=== PATIENT | female | born 1955 | race Caucasian/White ===

== ENCOUNTER 2016-08-24 01:07 | Inpatient (IN) | payer BC ==
[~2016-08-24] VITALS: Ht 162.6 cm; Wt 89.9 kg
[~2016-08-24 01:07] MED LIST: ASPI-983 PO; CITA20TA7 PO; DIPH-639 PO; FLUT1DIS26 IH; GLIP5TAB13 PO; LEVA1.2527 NEB; NCT21TD TD; PRD10T PO; TIOT4MIS2 IH; [UNRECOGNIZED DRUG - CODE] PO
--- OUTSIDE RECORDS SUMMARY | 2016-08-24 01:17 | XMS REPORT | Continuity of Care Document ---
Author Author Interface Organization Interface Address Unknown Phone Unavailable Problems Problem Status Onset Date Classification Date Reported Comments Source Chronic obstructive lung disease (disorder) Active Problem 12/11/2015 [facility]. Lobar pneumonia (disorder) Active Problem 12/11/2015 Kranem. Paroxysmal atrial fibrillation (disorder) Active Problem 12/11/2015 Kranem. Tobacco user (finding) Active Problem 12/11/2015 Kranem. Chronic obstructive lung disease (disorder) Active Problem 05/14/2015 Kranem. Lobar pneumonia (disorder) Active Problem 05/14/2015 Kranem. Paroxysmal atrial fibrillation (disorder) Active Problem 05/14/2015 Kranem. Tobacco user (finding) Active Problem 05/14/2015 Kranem. Chronic obstructive lung disease (disorder) Active Problem 05/11/2015 Kranem. Lobar pneumonia (disorder) Active Problem 05/11/2015 Kranem. Paroxysmal atrial fibrillation (disorder) Active Problem 05/11/2015 Kranem. Tobacco user (finding) Active Problem 05/11/2015 Kranem. Chronic obstructive lung disease (disorder) Active Problem 05/11/2015 Kranem. Lobar pneumonia (disorder) Active Problem 05/11/2015 Kranem. Paroxysmal atrial fibrillation (disorder) Active Problem 05/11/2015 Kranem. Tobacco user (finding) Active Problem 05/11/2015 Kranem. Chronic obstructive lung disease (disorder) Active Problem 05/02/2015 Kranem. No data available for this section Problem 11/20/2014 Kranem. Chronic obstructive lung disease (disorder) 12/07/2015 Diagnosis 12/11/2015 Kranem. Posterior rhinorrhea (disorder) 05/30/2015 Diagnosis [employer]. Cough (finding) 05/30/2015 Diagnosis 06/03/2015 Kranem. Severe chronic obstructive pulmonary disease (disorder) 05/30/2015 Diagnosis 06/03/2015 Kranem. Hyperglycemia (disorder) Diagnosis 12/11/2015 Kranem. Paroxysmal atrial fibrillation (disorder) 12/07/2015 Diagnosis 12/11/2015 Kranem. Mood disorder (disorder) Diagnosis 12/11/2015 Kranem. Obstructive sleep apnea syndrome (disorder) 05/10/2015 Diagnosis 05/14/2015 Kranem. Chronic obstructive lung disease (disorder) 05/05/2015 Diagnosis 05/14/2015 Kranem. Paroxysmal atrial fibrillation (disorder) 05/05/2015 Diagnosis 05/14/2015 Kranem. Tobacco user (finding) 05/08 Diagnosis 05/14/2015 Kranem. Lobar pneumonia (disorder) 05/08/2015 Diagnosis 2014 Kranem. Exacerbation of asthma (disorder) 04/28/2015 Diagnosis Kranem. Chronic airway obstruction, not elsewhere classified 11/16/2014 Diagnosis 11/20/2014 Kranem. Other chest pain 08/22/2014 Diagnosis 08/26/2014 Kranem. Medications Medication Details Route Status Patient Instructions Ordering Provider Order Date Source No Known Medications No known medications Active Kranem. Allergies, Adverse Reactions, Alerts Substance Category Reaction Severity Reaction type Status Date Reported Comments Source Codeine Assertion Drug allergy Kranem. Codeine Assertion Drug allergy Kranem. Codeine Assertion Drug allergy Kranem. Codeine Assertion Drug allergy Kranem. Immunizations Immunization Date Given Site Status Last Updated Comments Source No data available for this section No data available for this section [facility]. No data available for this section No data available for this section [facility]. No data available for this section No data available for this section [place] No data available for this section No data available for this section [place] No data available for this section No data available for this section [place]. Results Order Name Results Value Reference Range Date Interpretation Comments Source Vital Signs Vital Sign Value Date Comments Source Encounters Location Location Details Encounter Type Encounter Number Reason For Visit Attending Provider ADM Date DC Date Status Source [facility] [id number] Jay Alcantar 05/15/2015 05/16/2015 [place] [facility] [id number] Francis Elliser 05/30/2015 05/31/2015 [facility] [id number] Jay Alcantar 12/07/2015 12/08/2015 [place] [facility]. [facility], [facility] Inpatient [id number] Bennett Ganga 05/04/2015 05/11/2015 [place] [facility]. [facility] [employer] [facility] Pulmonary Medicine Cancel/No Show [id number] Brigette Stewart 05/07/2015 05/07/2015 [place] [facility]. [facility] Cancel/ No Show [id number] Jay Alcantar 05/15/2015 05/09/2015 [place] Cancel/ No Show [id number] . [facility] 05/08/2015 05/07/2015 [place] [facility]. [facility] Emergency [id number] Jay Alcantar 04/28/2015 04/29/2015 [place] [facility]. [facility], [facility] Outpatient [id number] Jess Ridley 12/07/2014 12/08/2014 [place] [facility] [facility]. [facility] [id number] Jay Alcantar 05/03/2015 05/04/2015 [place] [facility]. [facility] [id number] Jess Ridley 12/07/2014 12/08/2014 [place] [facility]. [facility] [id number] Jay Alcantar 11/16/2014 11/17/2014 [place] CD:[id number] Inpatient [id number] Vivek Goff 05/04/201505/10 [facility] CD:[id number] Emergency [id number] Romeo Briggs 04/27/2015 04/28/2015 [facility] CD:[id number] Outpatient [id number] Jess Ridley 12/07/2014 12/07/2014 [facility] Clinic [id number] Jay Alcantar 08/22/2014 08/23/2014 [facility] CD:[id number] Clinic ( Outpatient) [id number] Francis Presley 05/30/2015 [facility] CD:[id number] Clinic ( Outpatient) [id number] Jay Alcantar 05/15/2015 [facility] CD:[id number] Clinic ( Outpatient) [id number] . [facility] 05/07/2015 [facility] CD:[id number] Clinic ( Outpatient) [id number] Brigette Stewart 05/07/2015 [facility] CD:[id number] Clinic ( Outpatient) [id number] Jay Justmarvinn 05/15/2015 [facility] CD:[id number] Clinic ( Outpatient) [id number] Jay Villanuevan 12/07/2015 [facility] CD:[id number] Clinic ( Outpatient) [id number] Jay Justesen 08/22/2014 [facility] CD:[id number] Clinic ( Outpatient) [id number] Jay Justesen 05/03/2015 [facility] CD:[id number] Clinic ( Outpatient) [id number] Jay Justesen 05/10/2015 [facility] CD:[id number] Clinic ( Outpatient) [id number] Jess Ridley 12/07/2014 [facility] CD:[id number] Clinic ( Outpatient) [id number] Jay Kerresen 11/16/2014 [facility] Procedures Procedure Code Date Perfomer Comments Source No data available for this section [facility]. Appendectomy; [id number] Kranem. open heart surgery<sup>1</sup> at 5 years old Kranem. Tonsillectomy and adenoidectomy; younger than age 10 [id number] Kranem.
--- NOTE | 2016-08-24 01:24 | ED Dyspnea ---
General Chief Complaint: Respiratory Problems Stated Complaint: SOA Source of Information: Patient, RN Notes Reviewed Exam Limitations: No Limitations History of Present Illness Time Seen by Provider: 01:24 Initial Comments Presents c/ worsening SOA & cough. Started . Saw PCP on Thursday and started on an antibiotic, but her symptoms have worsened. Sees Dr. Mcdonald for her lungs. Timing/Duration: Other Severity: Moderate Activities at Onset: None Prior Episodes/Possible Cause: Occasional Episodes, Illness Exposure (?) Modifying Factors: Worse With Activity, Worse With Coughing Associated Symptoms: Cough, Wheezing Allergies and Home Medications Allergies Coded Allergies: No Known Drug Allergies (Unverified , 10/18/15) Home Medications Albuterol Sulfate 1 Puff Puff, 2 PUFF IH Q4H, #1 Ref 15 1 PUFF = 90 MCG Prescribed by: MUNIRA MONTANA on 08/28/16 1152 Amoxicillin/Potassium Clav 1 Each Tablet, 1 EACH PO BID, #6 Prescribed by: SUSSY PERES on 08/28/16 1110 Apixaban 5 Mg Tablet, 5 MG PO BID, (Reported) Cholecalciferol (Vitamin D3) 2,000 Unit Tablet, 2,000 UNIT PO DAILY, (Reported) Citalopram Hydrobromide 20 Mg Tablet, 20 MG PO HS, (Reported) Diltiazem HCl 180 Mg Capsule.er, 180 MG PO DAILY, (Reported) Fluticasone/Vilanterol 1 Each Blst.w.dev, 1 EACH IH DAILY, #1 Prescribed by: SUSSY PERES on 08/28/16 1110 Prednisone 20 Mg Tab, PO UD, (Reported) FILLED 08/23/16 FOR A 13 DAY TAPER 3 TABS PO DAILY X 3 DAYS 2 TABS PO DAILY X 3 DAYS 1 TAB PO DAILY X 3 DAYS 1/2 TAB PO DAILY X 4 DAYS Prednisone 10 Mg Tab.ds.pk, 10 MG PO DAILY, #42 Take 6 tabs(60mg)daily,decrease by 1 tab(10mg)every other day. Prescribed by: SUSSY PERES on 08/28/16 1110 Tiotropium Jasper 4 Gm Mist.inhal, 2 PUFF IH DAILY, (Reported) [Zolpidem Tartrate] 5 MG TAB, 5 MG PO HS, #30 Prescribed by: SUSSY PERES on 08/28/16 1110 Constitutional: see HPI Respiratory: see HPI, cough, dyspnea on exertion, short of breath, wheezing All Other Systems Reviewed Negative Unless Noted: Yes (Negative excepted noted.) Past Djyfggq-Hcvuse-Ganiqn Hx Immunizations Up To Date Date of Pneumonia Vaccine: Mar 22, 2014 Surgeries HX Surgeries: Yes (HEART SURGERY WHEN 5 YRS OLD.) Respiratory Hx Respiratory Disorders: Yes Respiratory Disorders: Pneumonia, RSV, Sleep Apnea, COPD Cardiovascular Hx Cardiac Disorders: Yes (OPEN HEART SURGERY WHEN 5 YRS OLD (HEART CHAMBER SURGERY)) Cardiac Disorders: Atrial Fibrillation, High Cholesterol, Hypertension Neurological Hx Neurological Disorders: Yes Neurological Disorders: Headaches /Migraines Reproductive System Hx Reproductive Disorders: No Sexually Transmitted Disease: No Female Reproductive Disorders: Denies Genitourinary Hx Genitourinary Disorders: No Gastrointestinal Hx Gastrointestinal Disorders: No Musculoskeletal Hx Musculoskeletal Disorders: Yes Musculoskeletal Disorders: Chronic Back Pain Endocrine Hx Endocrine Disorders: Yes (TOLD HAS LOW THYRIOD, BUT NO MEDS) HEENT HX ENT Disorders: Yes (TONSILECTOMY, WEARS GLASSES FOR READING) HEENT Disorders: Cataract Loss of Vision: Denies Hearing Impairment: Denies Cancer Hx Cancer: No Psychosocial Hx Psychiatric Problems: No Behavioral Health Disorders: Sleep Difficulties, Depression Integumentary HX Skin/Integumentary Disorder: Yes (RECENT UNDER RIGHT BREAST 1 CM ABRASION- LIKE AREA) Skin/Integumentary Disorders: Recent Skin Changes Blood Transfusions Hx Blood Disorders: No Adverse Reaction to a Blood Tr: No Family Medical History Family Medial History: CANCER 19 FATHER CANCER 19 FATHER Dementia G8 BROTHER (ENCEPALITIS ) FHx: cancer Hypertension 19 MOTHER Thyroid disease 19 MOTHER Physical Exam Vital Signs Capillary Refill : General Appearance: WD/WN HEENT: Pharynx Normal Neck: Normal Inspection Respiratory: Crackles (bases), Decreased Breath Sounds, Wheezing Cardiovascular: Regular Rate, Rhythm Rectal: Deferred Neurologic/Psychiatric: Alert, Oriented x3, No Motor/Sensory Deficits Skin: Warm/Dry Progress/Results/Core Measures Results/Orders Lab Results Laboratory Tests Test 08/24/16 01:20 08/24/16 01:29 08/24/16 02:00 Range/Units White Blood Count 10.6 4.3-11.0 10^3/uL Red Blood Count 4.03 L 4.35-5.85 10^6/uL Hemoglobin 11.7 11.5-16.0 G/DL Hematocrit 35 35-52 % Mean Corpuscular Volume 87 80-99 FL Mean Corpuscular Hemoglobin 29 25-34 PG Mean Corpuscular Hemoglobin Concent 33 32-36 G/DL Red Cell Distribution Width 13.6 10.0-14.5 % Platelet Count 215 130-400 10^3/uL Mean Platelet Volume 9.9 7.4-10.4 FL Neutrophils (%) (Auto) 81 H 42-75 % Lymphocytes (%) (Auto) 10 L 12-44 % Monocytes (%) (Auto) 9 0-12 % Eosinophils (%) (Auto) 0 0-10 % Basophils (%) (Auto) 0 0-10 % Neutrophils # (Auto) 8.6 H 1.8-7.8 X 10^3 Lymphocytes # (Auto) 1.1 1.0-4.0 X 10^3 Monocytes # (Auto) 1.0 0.0-1.0 X 10^3 Eosinophils # (Auto) 0.0 0.0-0.3 10^3/uL Basophils # (Auto) 0.0 0.0-0.1 10^3/uL D-Dimer 0.33 0.00-0.49 UG/ML Sodium Level 132 L 135-145 MMOL/L Potassium Level 3.8 3.6-5.0 MMOL/L Chloride Level 97 L 98-107 MMOL/L Carbon Dioxide Level 22 21-32 MMOL/L Anion Gap 13 5-14 MMOL/L Blood Urea Nitrogen 6 L 7-18 MG/DL Creatinine 0.69 0.60-1.30 MG/DL Estimat Glomerular Filtration Rate > 60 BUN/Creatinine Ratio 9 Glucose Level 146 H 70-105 MG/DL Lactic Acid Level 1.82 0.50-2.00 MMOL/L Calcium Level 9.1 8.5-10.1 MG/DL Magnesium Level 1.7 L 1.8-2.4 MG/DL Total Bilirubin 0.5 0.1-1.0 MG/DL Aspartate Amino Transf (AST/SGOT) 17 5-34 U/L Alanine Aminotransferase (ALT/SGPT) 20 0-55 U/L Alkaline Phosphatase 75 40-136 U/L Troponin I < 0.30 <0.30 NG/ML B-Type Natriuretic Peptide 44.9 <100.0 PG/ML Total Protein 6.5 6.4-8.2 G/DL Albumin 4.1 3.2-4.5 G/DL Urine Color YELLOW Urine Clarity CLEAR Urine pH 7 5-9 Urine Specific [place] 1.005 L 1.016-1.022 Urine Protein 1+ H NEGATIVE Urine Glucose (UA) NEGATIVE NEGATIVE Urine Ketones NEGATIVE NEGATIVE Urine Nitrite NEGATIVE NEGATIVE Urine Bilirubin NEGATIVE NEGATIVE Urine Urobilinogen NORMAL NORMAL MG/DL Urine Leukocyte Esterase NEGATIVE NEGATIVE Urine RBC (Auto) 2+ H NEGATIVE Urine RBC RARE /HPF Urine WBC NONE /HPF Urine Squamous Epithelial Cells 0-2 /HPF Urine Crystals NONE /LPF Urine Bacteria NEGATIVE /HPF Urine Casts NONE /LPF Urine Mucus NEGATIVE /LPF Urine Culture Indicated NO Thyroid Stimulating Hormone (TSH) 2.06 0.35-4.94 UIU/ML Micro Results Microbiology 08/24/16 Blood Culture - Final, Complete No growth 08/24/16 Blood Culture - Final, Complete No growth 08/24/16 Influenza Types A,B Antigen (JOEY) - Final, Complete My Orders Orders - MEAGAN SWANSON DO Saline Lock/Iv-Start (08/24/16 01:25) Ekg Tracing (08/24/16 01:25) BNP (08/24/16 01:25) Cbc With Automated Diff (08/24/16 01:25) Comprehensive Metabolic Panel (08/24/16 01:25) Lactic Acid Analyzer (08/24/16 01:25) Magnesium (08/24/16 01:25) Troponin I (08/24/16 01:25) Ua Culture If Indicated (08/24/16 01:25) Blood Culture (08/24/16 01:25) Influenza A And B Antigens (08/24/16 01:25) Chest 1 View, Ap/Pa Only (08/24/16 01:25) Albuterol/Ipra Inhalation Soln (Duoneb I (08/24/16 01:30) Svn Sm Volume Nebulizer Rt-Rfs (08/24/16 01:27) Albuterol/Ipra Inhalation Soln (Duoneb I (08/24/16 01:28) Ceftriaxone Injection (Rocephin Injectio (08/24/16 02:15) Methylprednisolone Sod Succ (Solu-Medrol (08/24/16 02:15) Fibrin Degradation Products (08/24/16 02:12) Ceftriaxone Injection (Rocephin Injectio (08/24/16 02:16) Ns (Ivpb) (Sodium Chloride 0.9% Ivpb Bag (08/24/16 02:17) Methylprednisolone Sod Succ (Solu-Medrol (08/24/16 02:30) Thyroid Stimulating Hormone (08/24/16 02:57) Azithromycin Iv Add-Dalzell (Zithromax I (08/24/16 03:15) Medications Given in ED Vital Signs/I&O ECG Initial ECG Impression Date: Aug 24, 2016 Initial ECG Impression Time: 01:20 Initial ECG Rate: 94 Initial ECG Rhythm: Normal Sinus Initial ECG Intervals: Normal Initial ECG Impression: Nonspecific Changes (probable anteroseptal infarct, ? age) Initial ECG Comparisson: Unchanged Diagnostic Imaging Diagonstic Imaging: Xray Plain Films/CT/US/NM/MRI: chest ((+) bibasilar infiltrates) Departure Communication Time/Spoke to Admitting Phy: 03:00 Impression Impression: Primary Impression: AECOPD Additional Impressions: Pneumonia Fever Disposition: ADMITTED INPATIENT Condition: Stable Decision to Admit Reason: Admit from ER (General) Decision to Admit/Date: Aug 24, 2016 Time/Decision to Admit Time: 03:00 Departure-Patient Inst. Referrals: NO,LOCAL PHYSICIAN (PCP/Family) Primary Care Physician Scripts Albuterol Sulfate (PROAIR HFA) 1 Puff Puff 2 PUFF IH Q4H, #1 PUFF 15 Refills 1 PUFF = 90 MCG Prov: CARMEN MCDONALD DO 08/28/16 Amoxicillin/Potassium Clav (Augmentin 875-125 Tablet) 1 Each Tablet 1 EACH PO BID, #6 TAB Prov: SUSSY PERES DO 08/28/16 Prednisone (Prednisone) 10 Mg Tab.ds.pk 10 MG PO DAILY, #42 PKG Take 6 tabs(60mg)daily,decrease by 1 tab(10mg)every other day. Prov: SUSSY PERES DO 08/28/16 Fluticasone/Vilanterol (Breo Ellipta 100-25 Mcg INH) 1 Each Blst.w.dev 1 EACH IH DAILY, #1 Prov: SUSSY PERES DO 08/28/16 [Zolpidem Tartrate] 5 MG TAB No Conflict Check 5 MG PO HS, #30 TAB Prov: SUSSY PERES DO 08/28/16 MEAGAN SWANSON DO Aug 24, 2016 01:24
[2016-08-24] MEDS ORDERED: RT-ALBUTEROL/IPRATROPIUM 3 ML (DUONEB) VIAL ONE (01:28)
[2016-08-24] MEDS ORDERED: RT-ALBUTEROL/IPRATROPIUM 3 ML (DUONEB) VIAL INH ONE (01:30)
[2016-08-24 01:31] LABS: BASOPHILS % (AUTO) 0 % (0-10); EOSINOPHILS % (AUTO) 0 % (0-10); LYMPHOCYTES # (AUTO) 1.1 X 10^3 (1.0-4.0); LYMPHOCYTES % (AUTO) 10 % (12-44); MEAN CORPUSCULAR HEMOGLOBIN 29 PG (25-34); MEAN CORPUSCULAR HGB CONC 33 G/DL (32-36); MEAN CORPUSCULAR VOLUME 87 FL (80-99); MEAN PLATELET VOLUME 9.9 FL (7.4-10.4); MONOCYTES % (AUTO) 9 % (0-12); NEUTROPHILS # (AUTO) 8.6 X 10^3 (1.8-7.8); NEUTROPHILS % (AUTO) 81 % (42-75); PLATELET COUNT 215 10^3/uL (130-400); RED BLOOD COUNT 4.03 10^6/uL (4.35-5.85); RED CELL DISTRIBUTION WIDTH 13.6 % (10.0-14.5); WHITE BLOOD COUNT 10.6 10^3/uL (4.3-11.0)
[2016-08-24 01:36] LABS: BILIRUBIN,URINE NEGATIVE (NEGATIVE); KETONES,URINE NEGATIVE (NEGATIVE); LEUKOCYTE ESTERASE ,URINE NEGATIVE (NEGATIVE); NITRITE,URINE NEGATIVE (NEGATIVE); PH,URINE 7 (5-9); PROTEIN,URINE 1+ (NEGATIVE); UROBILINOGEN,URINE NORMAL (NORMAL)
[2016-08-24 01:43] LABS: SQUAMOUS EPITHELIAL CELL,UR 0-2 /HPF
[2016-08-24 01:57] LABS: ALANINE AMINOTRANSFERASE 20 U/L (0-55); ALBUMIN 4.1 G/DL (3.2-4.5); ANION GAP 13 MMOL/L (5-14); ASPARTATE AMINO TRANSFERASE 17 U/L (5-34); BILIRUBIN,TOTAL 0.5 MG/DL (0.1-1.0); BLOOD UREA NITROGEN 6 MG/DL (7-18); BUN/CREATININE RATIO 9; CALCIUM 9.1 MG/DL (8.5-10.1); CARBON DIOXIDE 22 MMOL/L (21-32); CHLORIDE 97 MMOL/L (98-107); CREATININE SERUM 0.69 MG/DL (0.60-1.30); GFR ESTIMATED > 60; GLUCOSE 146 MG/DL (70-105); MAGNESIUM 1.7 MG/DL (1.8-2.4); POTASSIUM 3.8 MMOL/L (3.6-5.0); SODIUM 132 MMOL/L (135-145); TOTAL PROTEIN 6.5 G/DL (6.4-8.2)
[2016-08-24 02:06] LABS: TROPONIN I < 0.30 NG/ML (<0.30)
[2016-08-24] MEDS ORDERED: cefTRIAXone INJECTION 1,000 MG in NS (IVPB) 50 ML IV ONE (02:15)
[2016-08-24] MEDS ORDERED: methylPREDNISolone 125 MG (Solu-MEDROL) VIAL IM ONE (02:15)
[2016-08-24] MEDS ORDERED: cefTRIAXone 1 GM (ROCEPHIN) VIAL ONE (02:16)
[2016-08-24] MEDS ORDERED: NS (IVPB) 50 ML ONE (02:17)
[2016-08-24] MEDS ORDERED: methylPREDNISolone 125 MG (Solu-MEDROL) VIAL IVP ONE (02:30)
[2016-08-24] MEDS ORDERED: APIX5TAB PO (02:45)
[2016-08-24] MEDS ORDERED: CHOL200025 PO (02:45)
[2016-08-24] MEDS ORDERED: IPRA3AMP IH (02:45)
[2016-08-24] MEDS ORDERED: AZITHROMYCIN IV ADD-VANTAGE 500 MG in SODIUM CHLORIDE (ADD-VANTAGE) 250 ML IV ONE (03:15)
[2016-08-24 03:50] VITALS: BP 136/61
[2016-08-24] MEDS ORDERED: RT-ALBUTEROL/IPRATROPIUM 3 ML (DUONEB) VIAL INH PRN (04:30)
[2016-08-24] MEDS: NS IV 1000 ML 1,000 ML IV SCH ×3 (04:59→22:10)
[2016-08-24] MEDS: CATHETER FLUSH 10 ML SYR IV SCH ×3 (05:15→19:39)
[2016-08-24] MEDS: RT-ADVAIR HFA 115/21 MCG PER PUFF IH SCH ×2 (07:14→18:34)
[2016-08-24] MEDS: RT-ALBUTEROL/IPRATROPIUM 3 ML (DUONEB) VIAL INH SCH ×5 (07:14→22:35)
[2016-08-24 08:00] VITALS: BP 109/53
--- NOTE | 2016-08-24 08:38 | Diagnostic Imaging Report ---
INDICATION: Shortness of breath. Comparison made with prior examination from 10/18/2015. FINDINGS: There is cardiomegaly. There is bibasilar atelectasis and/or pneumonitis. There is no pneumothorax. The mediastinum is unremarkable. IMPRESSION: Bibasal atelectasis and/or pneumonitis. Cardiomegaly. Dictated by: Dictated on workstation # [id number]
[2016-08-24] MEDS: methylPREDNISolone 125 MG (Solu-MEDROL) VIAL IV SCH ×2 (10:15→16:57)
[2016-08-24] MEDS: UMECLIDINIUM BROMIDE (INCRUSE ELLIPTA) 7'S IH SCH (10:50)
[2016-08-24 12:00] VITALS: BP 141/60
--- NOTE | 2016-08-24 13:52 | History & Physical-Hospitalist ---
HPI History of Present Illness: HPI/Chief Complaint The patient is a 61-year-old white female who presented to the emergency room last night with complaints of shortness of breath. 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 She reports that she had gone to [place] Thursday services early on Thursday morning. The children who are there seemed to be coughing and sneezing a good deal. By she had begun to cough and produce more sputum which was yellowish as compared to her usual white. This continued to decline and she saw the doctor in [place] on Thursday and was given an antibiotic. By Thursday she had gotten much worse and the her daughter brought her to the emergency room where she was admitted. She reports that when taking prednisone she is a borderline diabetic. She also has an Advair inhaler and a nebulizer which she does not use. Her usual daily medication is a Spiriva inhaler. Source: patient, family Date Seen 08/24/16 Attending Physician Carlos Umaan MD PCP No,Local Physician Referring Physician Date of Admission Aug 24, 2016 at 03:19 Home Medications & Allergies Home Medications Reviewed patient Home Medication Reconciliation Form Allergies Coded Allergies: No Known Drug Allergies (Unverified , 10/18/15) Past Mutpart-Ierxdc-Glbusa Hx Patient Social History Alcohol Use: Denies Use Recreational Drug Use: No Smoking Status: Current Someday Smoker Type Used: Cigarettes Physical Abuse Screen: No Sexual Abuse: No Recent Foreign Travel: No Contact w/other who traveled: No Recent Hopitalizations: No Recent Infectious Disease Expo: No Immunizations Up To Date Date of Pneumonia Vaccine: Mar 22, 2016 Date of Influenza Vaccine: Mar 22, 2016 Seasonal Allergies Seasonal Allergies: No Surgeries HX Surgeries: Yes (HEART SURGERY WHEN 5 YRS OLD.) Respiratory Hx Respiratory Disorders: Yes Respiratory Disorders: COPD, Pneumonia, Sleep Apnea Cardiovascular Hx Cardiovascular Disorders: Yes (OPEN HEART SURGERY WHEN 5 YRS OLD (HEART CHAMBER SURGERY)) Cardiac Disorders: Atrial Fibrillation, High Cholesterol, Hypertension Neurological Hx Neurological Disorders: Yes Neurological Disorders: Headaches /Migraines Reproductive System Hx Reproductive Disorders: No Sexually Transmitted Disease: No HIV/AIDS: No Female Reproductive Disorders: Denies Genitourinary Hx Genitourinary Disorders: No Gastrointestinal Hx Gastrointestinal Disorders: No Musculoskeletal Hx Musculoskeletal Disorders: Yes Musculoskeletal Disorders: Chronic Back Pain Endocrine Hx Endocrine Disorders: Yes (TOLD HAS LOW THYRIOD, BUT NO MEDS) HEENT HX ENT Disorders: Yes (TONSILECTOMY, WEARS GLASSES FOR READING) HEENT Disorders: Cataract Loss of Vision: Denies Hearing Impairment: Denies Cancer Hx Cancer: No Psychosocial Hx Psychiatric Problems: No Behavioral Health Disorders: Sleep Difficulties, Depression Integumentary HX Skin/Integumentary Disorder: Yes (RECENT UNDER RIGHT BREAST 1 CM ABRASION- LIKE AREA) Skin/Integumentary Disorders: Recent Skin Changes Blood Transfusions Hx Blood Disorders: No Adverse Reaction to a Blood Tr: No Family Medical History Family Hx: CANCER 19 FATHER CANCER 19 FATHER Dementia G8 BROTHER (ENCEPALITIS ) FHx: cancer Hypertension 19 MOTHER Thyroid disease 19 MOTHER Review of Systems Constitutional: see HPI EENTM: no symptoms reported Respiratory: cough dyspnea on exertion phlegm short of breath wheezing Cardiovascular: no symptoms reported Gastrointestinal: no symptoms reported Musculoskeletal: no symptoms reported Skin: no symptoms reported Psychiatric/Neurological: No Symptoms Reported Physical Exam Physical Exam Vital Signs Vital Sign - Last 12Hours 08/24/16 08/24/16 01:07 01:32 Temp 100.1 Pulse 100 Resp 20 B/P 141/73 Pulse Ox 95 O2 Delivery Nasal Cannula O2 Flow Rate 4 Capillary Refill : Less Than 3 Seconds General Appearance: Mild Distress Moderate Distress Eyes: Bilateral Eye Normal Inspection HEENT: Normal ENT Inspection Neck: Normal Inspection Respiratory: Decreased Breath Sounds (breath sounds are distant. There is bilateral wheezing noted in the upper portion of the lower lobes posteriorly) Rhonci Cardiovascular: No Edema No Gallop No JVD No Murmur Normal Peripheral Pulses Irregularly Irregular Gastrointestinal: Normal Bowel Sounds Back: Normal Inspection No CVA Tenderness No Vertebral Tenderness Extremity: Normal Capillary Refill Normal Inspection Normal Range of Motion Non Tender No Calf Tenderness No Pedal Edema Skin: Normal Color Warm/Dry Lymphatic: No Adenopathy Results Results/Procedures Lab Laboratory Tests 08/24/16 01:20 Assessment/Plan Admission Diagnosis COPD and acute exacerbation. 2.suspect infectious process, viral URI versus bronchitis. 3.atrial fibrillation Assessment and Plan Empiric steroids and antibiotics. Consult with Dr. Mcdonald Clinical Quality Measures DVT/VTE Risk/Contraindication: Risk Factor Score Per Nursin RFS Level Per Nursing on Admit: 2=Moderate CARLOS UMANA MD Aug 24, 2016 13:52
[2016-08-24] MEDS ORDERED: UMECLIDINIUM BROMIDE (INCRUSE ELLIPTA) 7'S IH SCH (14:04)
[2016-08-24 16:15] VITALS: BP 145/61
[2016-08-24] MEDS: DILTIAZEM 180 MG (CARDIZEM CD) CAP PO SCH (16:56)
[2016-08-24] MEDS: inSUlin ASPART (NovoLOG) 1 UNIT/0.01 ML (CHARGE PER UNIT) SC SCH ×2 (16:56→21:29)
[2016-08-24] MEDS: NICOTINE 21 MG (NICODERM) PATCH TD SCH (16:57)
[2016-08-24 19:53] VITALS: BP 119/53
[2016-08-24] MEDS: APIXABAN 5 MG (ELIQUIS) TABLET PO SCH (20:21)
[2016-08-24] MEDS: AZITHROMYCIN 250 MG TAB (ZITHROMAX) PO SCH (20:21)
[2016-08-24] MEDS: cefTRIAXone INJECTION 1,000 MG in NS (IVPB) 50 ML IV SCH (20:21)
[2016-08-25] VITALS: BP 121/66
[2016-08-25] MEDS: RT-ALBUTEROL/IPRATROPIUM 3 ML (DUONEB) VIAL INH SCH ×3 (02:34→10:39)
[2016-08-25] MEDS: methylPREDNISolone 125 MG (Solu-MEDROL) VIAL IV SCH ×3 (02:38→17:55)
[2016-08-25 04:00] VITALS: BP 113/66
[2016-08-25] MEDS: inSUlin ASPART (NovoLOG) 1 UNIT/0.01 ML (CHARGE PER UNIT) SC SCH ×4 (05:22→22:30)
[2016-08-25] MEDS: RT-ADVAIR HFA 115/21 MCG PER PUFF IH SCH ×2 (06:23→23:26)
[2016-08-25] MEDS: UMECLIDINIUM BROMIDE (INCRUSE ELLIPTA) 7'S IH SCH (06:26)
[2016-08-25 08:00] VITALS: BP 113/64
[2016-08-25] MEDS: PATCH REMOVAL TP SCH (09:00)
[2016-08-25] MEDS: NICOTINE 21 MG (NICODERM) PATCH TD SCH (09:00)
[2016-08-25] MEDS: DILTIAZEM 180 MG (CARDIZEM CD) CAP PO SCH (09:18)
[2016-08-25] MEDS: APIXABAN 5 MG (ELIQUIS) TABLET PO SCH ×2 (09:19→20:01)
[2016-08-25] MEDS: NS IV 1000 ML 1,000 ML IV SCH (09:24)
[2016-08-25] MEDS ORDERED: CITA20TA7 PO (10:21)
[2016-08-25] MEDS ORDERED: DILT180C82 PO (10:21)
[2016-08-25] MEDS ORDERED: PRD20T PO (10:58)
[2016-08-25] MEDS ORDERED: AZIT250T5 PO (10:58)
--- NOTE | 2016-08-25 10:59 | Progress Note-Hospitalist ---
Progress Note HPI/CC on Admission The patient is a 61-year-old white female who presented to the emergency room last night with complaints of shortness of breath. 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 She reports that she had gone to [facility] services early on Thursday morning. The children who are there seemed to be coughing and sneezing a good deal. By she had begun to cough and produce more sputum which was yellowish as compared to her usual white. This continued to decline and she saw the doctor in [place] on Thursday and was given an antibiotic. By Thursday she had gotten much worse and the her daughter brought her to the emergency room where she was admitted. She reports that when taking prednisone she is a borderline diabetic. She also has an Advair inhaler and a nebulizer which she does not use. Her usual daily medication is a Spiriva inhaler. Progress Notes/Assess & Plan Date Seen 08/25/16 Diagonsis/Assessment & Plan Chart Review: No fever Vitals stable Patient Interview: Pt states that she feels improved, but feels SOB when she ambulates. Pt has not seen Dr. Mcdonald. Pt states that she uses continuous 4L O2 at home. Pt states that she has not been using her inhalers or breathing treatments at home. Pt uses Spiriva but does not use Advair. Physical exam reveals significant wheezing. Pt does not have any pain. Pt states that home meds have been restarted except for Benadryl. Vital signs stable, pleasant, oriented 3, up in chair, using O2 Regular rate rhythm, wheezing throughout all amrtinez and diminished breath sounds very tight No edema A/P: Severe COPD w/exacerbation AF Smoker Obesity DALE Leukocytosis DM Plan: Solumedrol 80mg IV q8 Rocephin and Zithromax Heplock IVF Stop Albuterol products Case management consult Consult Dr. Mcdonald Scribed by Sj Olivier under the direct supervision of Dr. Peres. SUSSY PERES DO Aug 25, 2016 10:59
[2016-08-25 12:00] VITALS: BP 123/79
[2016-08-25] MEDS: CATHETER FLUSH 10 ML SYR IV SCH ×2 (14:00→22:00)
[2016-08-25] MEDS: RT-LEVALBUTEROL (XOPENEX) 1.25 MG/3 ML NEB NON-FORMULARY INH SCH ×2 (15:08→23:17)
[2016-08-25 15:30] VITALS: BP 116/55
[2016-08-25 20:00] VITALS: BP 133/62
[2016-08-25] MEDS: AZITHROMYCIN 250 MG TAB (ZITHROMAX) PO SCH (20:01)
[2016-08-25] MEDS: cefTRIAXone INJECTION 1,000 MG in NS (IVPB) 50 ML IV SCH (20:02)
[2016-08-26] VITALS: BP 119/60
[2016-08-26] MEDS: methylPREDNISolone 125 MG (Solu-MEDROL) VIAL IV SCH ×3 (01:27→18:36)
[2016-08-26] MEDS: CATHETER FLUSH 10 ML SYR IV PRN (01:28)
[2016-08-26 04:00] VITALS: BP 132/60
[2016-08-26] MEDS: inSUlin ASPART (NovoLOG) 1 UNIT/0.01 ML (CHARGE PER UNIT) SC SCH ×4 (06:12→20:40)
[2016-08-26] MEDS: CATHETER FLUSH 10 ML SYR IV SCH ×3 (06:13→20:39)
[2016-08-26] MEDS: RT-LEVALBUTEROL (XOPENEX) 1.25 MG/3 ML NEB NON-FORMULARY INH SCH ×3 (07:05→21:48)
[2016-08-26] MEDS: RT-ADVAIR HFA 115/21 MCG PER PUFF IH SCH ×2 (07:05→21:49)
[2016-08-26] MEDS: UMECLIDINIUM BROMIDE (INCRUSE ELLIPTA) 7'S IH SCH (07:06)
--- NOTE | 2016-08-26 07:24 | Pulmonary Consultation ---
History of Present Illness History of Present Illness Date of Consultation 08/26/16 07:18 Date of Admission History of Present Illness 61yo with hx of COPD who presented to ED secondary to worsening SOB. Onset was and became progressively worse. Pt was admitted on Thursday Dr. Salcedo is consulting me for pulmonary management. Pt has advair and a nebulizer at home however she has not been using it. She does take Spiriva daily. Allergies and Home Medications Allergies Coded Allergies: No Known Drug Allergies (Unverified , 10/18/15) Home Medications Apixaban 5 Mg Tablet 5 MG PO BID (Reported) Azithromycin 250 Mg Tablet 250 MG PO DAILY (Reported) FILLED 08/23/16 FOR A 5 DAY THERAPY Cholecalciferol (Vitamin D3) 2,000 Unit Tablet 2,000 UNIT PO DAILY (Reported) Citalopram Hydrobromide 20 Mg Tablet 20 MG PO HS (Reported) Diltiazem HCl 180 Mg Capsule.er 180 MG PO DAILY (Reported) Diphenhydramine HCl 25 Mg Capsule 50 MG PO HS (Reported) TAKES 2 (25 MG) CAPSULES Prednisone 20 Mg Tab PO UD (Reported) FILLED 08/23/16 FOR A 13 DAY TAPER 3 TABS PO DAILY X 3 DAYS 2 TABS PO DAILY X 3 DAYS 1 TAB PO DAILY X 3 DAYS 1/2 TAB PO DAILY X 4 DAYS Tiotropium [place] 4 Gm Mist.inhal 2 PUFF IH DAILY (Reported) Past Vjgrowf-Saoqvq-Ykfsql Hx Patient Social History Alcohol Use: Denies Use Recreational Drug Use: No Smoking Status: Current Someday Smoker Type Used: Cigarettes Recent Foreign Travel: No Contact w/Someone Who Travel: No Recent Infectious Disease Expo: No Recent Hopitalizations: No Physical Abuse Screen: No Sexual Abuse: No Immunizations Up To Date Date of Pneumonia Vaccine: Mar 22, 2016 Date of Influenza Vaccine: Mar 22, 2016 Seasonal Allergies Seasonal Allergies: No Surgeries HX Surgeries: Yes (HEART SURGERY WHEN 5 YRS OLD.) Respiratory Hx Respiratory Disorders: Yes Respiratory Disorders: Pneumonia, RSV, Sleep Apnea, COPD Cardiovascular Hx Cardiac Disorders: Yes (OPEN HEART SURGERY WHEN 5 YRS OLD (HEART CHAMBER SURGERY)) Cardiac Disorders: Atrial Fibrillation, High Cholesterol, Hypertension Neurological Hx Neurological Disorders: Yes Neurological Disorders: Headaches /Migraines Reproductive System Hx Reproductive Disorders: No Sexually Transmitted Disease: No HIV/AIDS: No Female Reproductive Disorders: Denies Genitourinary Hx Genitourinary Disorders: No Gastrointestinal Hx Gastrointestinal Disorders: No Musculoskeletal Hx Musculoskeletal Disorders: Yes Musculoskeletal Disorders: Chronic Back Pain Endocrine Hx Endocrine Disorders: Yes (TOLD HAS LOW THYRIOD, BUT NO MEDS) HEENT HX ENT Disorders: Yes (TONSILECTOMY, WEARS GLASSES FOR READING) HEENT Disorders: Cataract Loss of Vision: Denies Hearing Impairment: Denies Cancer Hx Cancer: No Psychosocial Hx Psychiatric Problems: No Behavioral Health Disorders: Sleep Difficulties, Depression Integumentary HX Skin/Integumentary Disorder: Yes (RECENT UNDER RIGHT BREAST 1 CM ABRASION- LIKE AREA) Skin/Integumentary Disorders: Recent Skin Changes Blood Transfusions Hx Blood Disorders: No Adverse Reaction to a Blood Tr: No Family Medical History Family Medial History: CANCER 19 FATHER CANCER 19 FATHER Dementia G8 BROTHER (ENCEPALITIS ) FHx: cancer Hypertension 19 MOTHER Thyroid disease 19 MOTHER Exam Exam Vital Signs Date Time Temp Pulse Resp B/P Pulse Ox O2 Delivery O2 Flow Rate FiO2 08/26/16 07:07 92 4.00 08/26/16 04:00 96.9 78 20 132/60 94 Nasal Cannula 4.00 08/26/16 01:00 88 08/26/16 00:00 97.0 85 20 119/60 94 Nasal Cannula 4.00 08/25/16 23:28 94 4.00 08/25/16 23:18 94 4.00 08/25/16 21:00 94 Nasal Cannula 4.00 08/25/16 20:00 97.1 88 16 133/62 94 Nasal Cannula 4.00 08/25/16 19:00 78 08/25/16 15:30 97.5 78 18 116/55 99 NIV/CPAP 4.00 08/25/16 15:11 4.00 08/25/16 13:00 87 08/25/16 12:00 96.0 87 24 123/79 98 Nasal Cannula 4.00 08/25/16 10:39 95 5.00 08/25/16 09:00 91 Nasal Cannula 5.00 08/25/16 08:00 97.3 101 20 113/64 91 NIV/Bilevel I & O 08/26/16 07:00 Intake Total 4690 ml Output Total 4400 ml Balance 290 ml General Appearance: No Apparent Distress HEENT: Normal ENT Inspection Neck: Normal Inspection Respiratory: Decreased Breath Sounds (breath sounds are distant. There is bilateral wheezing noted in the upper portion of the lower lobes posteriorly) Rhonci Cardiovascular: No Edema No Gallop No JVD No Murmur Normal Peripheral Pulses Irregularly Irregular Capillary Refill: Less Than 3 Seconds Extremity: Normal Capillary Refill Normal Inspection Normal Range of Motion Non Tender No Calf Tenderness No Pedal Edema Skin: Normal Color Warm/Dry Lymphatic: No Adenopathy Assessment/Plan Assessment/Plan Severe COPD with AE -Solumedrol -rocephin and azithromycin -Xopenex, advair Worsening SOB -Check CXR, and labs including BNP -Lasix 40mg x 1 Tobacco use OBesity DALE Clinical Quality Measures DVT/VTE Risk/Contraindication: Risk Factor Score Per Nursin RFS Level Per Nursing on Admit: 2=Moderate CARMEN NARANJO DO Aug 26, 2016 07:24
[2016-08-26 08:00] VITALS: BP 125/61
[2016-08-26] MEDS ORDERED: FUROSEMIDE 40 MG/4 ML INJ (LASIX) IVP NR (08:00)
[2016-08-26] MEDS: NICOTINE 21 MG (NICODERM) PATCH TD SCH (08:37)
[2016-08-26] MEDS: PATCH REMOVAL TP SCH (08:37)
[2016-08-26] MEDS: APIXABAN 5 MG (ELIQUIS) TABLET PO SCH ×2 (08:37→20:39)
[2016-08-26] MEDS: DILTIAZEM 180 MG (CARDIZEM CD) CAP PO SCH (08:37)
[2016-08-26 08:44] LABS: BASOPHILS % (AUTO) 0 % (0-10); EOSINOPHILS % (AUTO) 0 % (0-10); LYMPHOCYTES # (AUTO) 0.7 X 10^3 (1.0-4.0); LYMPHOCYTES % (AUTO) 4 % (12-44); MEAN CORPUSCULAR HEMOGLOBIN 29 PG (25-34); MEAN CORPUSCULAR HGB CONC 33 G/DL (32-36); MEAN CORPUSCULAR VOLUME 89 FL (80-99); MEAN PLATELET VOLUME 9.9 FL (7.4-10.4); MONOCYTES # (AUTO) 0.6 X 10^3 (0.0-1.0); MONOCYTES % (AUTO) 3 % (0-12); NEUTROPHILS # (AUTO) 17.5 X 10^3 (1.8-7.8); NEUTROPHILS % (AUTO) 93 % (42-75); PLATELET COUNT 202 10^3/uL (130-400); RED BLOOD COUNT 3.86 10^6/uL (4.35-5.85); RED CELL DISTRIBUTION WIDTH 13.9 % (10.0-14.5); WHITE BLOOD COUNT 18.8 10^3/uL (4.3-11.0)
[2016-08-26 08:55] LABS: ANION GAP 12 MMOL/L (5-14); BLOOD UREA NITROGEN 14 MG/DL (7-18); BUN/CREATININE RATIO 20; CALCIUM 8.6 MG/DL (8.5-10.1); CARBON DIOXIDE 24 MMOL/L (21-32); CHLORIDE 102 MMOL/L (98-107); GFR ESTIMATED > 60; GLUCOSE 262 MG/DL (70-105); POTASSIUM 3.7 MMOL/L (3.6-5.0); SODIUM 138 MMOL/L (135-145)
--- NOTE | 2016-08-26 09:07 | Diagnostic Imaging Report ---
Indication: Cough and dyspnea since . Discussion: Two views of the chest were obtained, comparison 08/24/2016. Consolidation within the right midlung has increased from prior exam. Interstitial infiltrates are also now present within the lingula. Findings are concerning for pneumonia. Normal heart size. No pleural fluid or pneumothorax. Age-related degenerative changes are present throughout the thoracic spine. Impression: 1. Worsening bilateral pulmonary infiltrates, consistent with pneumonia. Dictated by: Dictated on workstation # [id number]
[2016-08-26 09:11] LABS: BAND NEUTROPHILS 0 %; BASOPHILS % (MANUAL) 0 %; EOSINOPHILS % (MANUAL) 0 %; LYMPHOCYTES % (MANUAL) 7 %; NEUTROPHILS % (MANUAL) 91 %
--- NOTE | 2016-08-26 10:17 | Consultation-Cardiology ---
HPI-Cardiology Cardiology Consultation: Date of Consultation 08/26/16 Date of Admission 08-24-16 Attending Physician Carlos Negrete MD Admitting Physician No,Local Physician Consulting Physician Conrado Ng MD HPI: Chief Complaint: Shortness of breath Ms. Snyder is a 61 year old female admitted to [facility] with increasing shortness of breath, productive cough, fever, chills at home. She states she was on abx tx as an outpatient but yesterday she started to feel progressively worse. No c/o n/v/d. No c/o CP, palpitations, syncope, near syncope or lower extremity edema. States she continues to feel short of breath, but feels her cough is becoming more productive. Review of Systems-Cardiology Review of Systems Constitutional: As described under HPI Eyes: No blurred vision, No drainage, No pain, No vision change Ears/Nose/Throat: No ear discharge, No ear pain, No nasal drainage, No ulcerations Respiratory: As described under HPI Cardiovascular: As described under HPI Gastrointestinal: No constipation, No diarrhea, No nausea, No vomiting, No stool coloration changes Genitourinary: No dysuria, No discharge, No frequency, No hematuria, No urgency Musculoskeletal: no symptoms reported Skin: No rash, No skin related problems, No ulcerations Psychiatric/Neurological: No anxiety, No depression, No focal weakness, No seizure, No syncope Hematologic: No bleeding abnormalities [id number]-[id number] Hx Patient Social History Alcohol Use: Denies Use Recreational Drug Use: No Smoking Status: Current Someday Smoker Type Used: Cigarettes Recent Foreign Travel: No Recent Infectious Disease Expo: No Physical Abuse Screen: No Sexual Abuse: No Immunizations Up To Date Date of Pneumonia Vaccine: Mar 22, 2016 Date of Influenza Vaccine: Mar 22, 2016 Past Medical History PMH As described under Assessment. Family Medical History Family Medical History: She reports her mother had hypertension. No family h/o CAD or premature SCD. Family History: 19 FATHER CANCER 19 MOTHER Thyroid disease Hypertension G8 BROTHER Dementia (ENCEPALITIS ) Relation not specified for: CANCER FHx: cancer Allergies and Home Medications Allergies Coded Allergies: No Known Drug Allergies (Unverified , 10/18/15) Home Medications Apixaban 5 Mg Tablet 5 MG PO BID (Reported) Azithromycin 250 Mg Tablet 250 MG PO DAILY (Reported) FILLED 08/23/16 FOR A 5 DAY THERAPY Cholecalciferol (Vitamin D3) 2,000 Unit Tablet 2,000 UNIT PO DAILY (Reported) Citalopram Hydrobromide 20 Mg Tablet 20 MG PO HS (Reported) Diltiazem HCl 180 Mg Capsule.er 180 MG PO DAILY (Reported) Diphenhydramine HCl 25 Mg Capsule 50 MG PO HS (Reported) TAKES 2 (25 MG) CAPSULES Prednisone 20 Mg Tab PO UD (Reported) FILLED 08/23/16 FOR A 13 DAY TAPER 3 TABS PO DAILY X 3 DAYS 2 TABS PO DAILY X 3 DAYS 1 TAB PO DAILY X 3 DAYS 1/2 TAB PO DAILY X 4 DAYS Tiotropium [place] 4 Gm Mist.inhal 2 PUFF IH DAILY (Reported) Physical Exam-Cardiology Physical Exam Vital Signs/I&O Vital Sign - Last 12Hours 08/26/16 08/26/16 08/26/16 08/26/16 07:00 07:07 08:00 08:00 Temp 96.8 Pulse 80 89 Resp 20 B/P 125/61 Pulse Ox 92 96 96 O2 Delivery Nasal Cannula Nasal Cannula O2 Flow Rate 4.00 4.00 4.00 08/26/16 08/26/16 08/26/16 12:00 13:00 14:02 Temp 97.4 Pulse 82 88 Resp 24 B/P 125/58 Pulse Ox 97 94 O2 Delivery Nasal Cannula O2 Flow Rate 4.00 4.00 Intake and Output 08/26/16 00:00 Intake Total 3490 ml Output Total 2450 ml Balance 1040 ml Capillary Refill : Less Than 3 Seconds Constitutional: appears stated ageNo apparent distress, well-developed well- nourished HEENT: PERRLNo discharge, hearing is well preserved oral hygience is goodNo ulceration, No xanthelasmas are seen Neck: No carotid bruit, carotid pulses are 2 + bilaterally Respiratory: rhonchi other (diminished lower lobes bilat; loose productive cough; prolonged exp phase) Cardiovascular: regular rate-rhythmNo JVD, S1 and S2 Gastrointestinal: No tender, soft roundNo spleenomegaly Extremities: No clubbing, No cyanosis, No significant edema Neurologic/Psychiatric: alert oriented x 3 grossly intact Skin: No rash, No ulcerations Data Review Labs Laboratory Tests 08/25/16 22:12: Glucometer 189H 08/26/16 06:01: Glucometer 239H 08/26/16 08:32: Anion Gap 12, B-Type Natriuretic Peptide 141.2H, BUN/Creatinine Ratio 20, Band Neutrophils 0, Basophils # (Auto) 0.0, Basophils % (Manual) 0, Basophils (%) ( Auto) 0, Blood Morphology Comment NORMAL, Blood Urea Nitrogen 14, Calcium Level 8.6, Carbon Dioxide Level 24, Chloride Level 102, Creatinine 0.70, Eosinophils # (Auto) 0.0, Eosinophils % (Manual) 0, Eosinophils (%) (Auto) 0, Estimat Glomerular Filtration Rate > 60, Glucose Level 262H, Hematocrit 34L, Hemoglobin 11.2L, Lymphocytes # (Auto) 0.7L, Lymphocytes % (Manual) 7, Lymphocytes (%) ( Auto) 4L, Mean Corpuscular Hemoglobin 29, Mean Corpuscular Hemoglobin Concent 33 , Mean Corpuscular Volume 89, Mean Platelet Volume 9.9, Monocytes # (Auto) 0.6, Monocytes % (Manual) 2, Monocytes (%) (Auto) 3, Neutrophils # (Auto) 17.5H, Neutrophils % (Manual) 91, Neutrophils (%) (Auto) 93H, Platelet Count 202, Potassium Level 3.7, Red Blood Count 3.86L, Red Cell Distribution Width 13.9, Sodium Level 138, White Blood Count 18.8H 08/26/16 10:21: Glucometer 241H Microbiology 08/24/16 Blood Culture - Preliminary, Resulted No growth 08/24/16 Influenza Types A,B Antigen (JOEY) - Final, Complete Radiology NAME: LINETTE SNYDER [facility] REC#: [id number] PT STATUS: ADM IN : 1955 PHYSICIAN: CARMEN NARANJO DO ADMIT DATE: 08/24/16 Draft Date of Exam:08/26/16 CHEST PA/LAT (2 VIEW) Indication: Cough and dyspnea since . Discussion: Two views of the chest were obtained, comparison 08/24/2016. Consolidation within the right midlung has increased from prior exam. Interstitial infiltrates are also now present within the lingula. Findings are concerning for pneumonia. Normal heart size. No pleural fluid or pneumothorax. Age-related degenerative changes are present throughout the thoracic spine. Impression: 1. Worsening bilateral pulmonary infiltrates, consistent with pneumonia. Dictated on workstation # [id number] Dict: 08/26/16 0857 Trans: 08/26/16 0907 NEPTALI [id number] Interpreted by: TE RODRIGUEZ MD Electronically signed by: ECG Impression ECG Initial ECG Rhythm: Normal Sinus A/P-Cardiology Assessment/Admission Diagnosis Pneumonia - management per medical services H/O Chronic dizziness of undetermined etiology (most pronounced when lying down) , symptoms suggestive of vertigo Acute exacerbation of COPD - pulmonary services managing Echocardiogram of December 04, 2015 showed LVEF approx 55%. Epicardial fat vs small pericardial effusion. This does not appear to be not appear to be of hemodynamic significance. Mild MR and TR. No evidence of any significant valvular stenosis. PASP approx 35mHg MPI of 12-04-15 showed no evidence of significant myocardial ischemia or infarction. Normal regional wall motion. Normal global LV systolic function with an LVEF of 61% Paroxysmal atrial flutter diagnosed in April 2015 at [facility] - currently SR Echo of 05/04/15 at [facility]: LVEF 60-65%, no wall motion abnormality, PASP 43 mmHg, no valvular stenosis, mild MR, mild MAC Surgery at [facility] in the 1960s for a hole in the heart; details unknown Chronic tobacco use DALE, treated with CPAP Obesity with BMI approx 35 Discussion and Recomendations Pneumonia with acute exacerbation of COPD which is being managed by medical and pulmonary services. H/O PAF, she is currently in SR, long acting home dose of Diltiazem has already been resumed as well as home dose of OAC (Eliquis). Elevated BNP with no evidence of CHF. Possibly r/t acute exacerbation of COPD and pneumonia. IV Lasix was already given by pulmonology. Continue current regimen. Monitor lab closely. Further recommendations will be based on her hospital course. We would like to thank the Hospitalist service for this consult. This consult is being scribed by MARCEL Muñoz on behalf of Dr. Ng after discussion regarding plan of care. Clinical Quality Measures DVT/VTE Risk/Contraindication: Risk Factor Score Per Nursin RFS Level Per Nursing on Admit: 2=Moderate Physician Assessment Physician Assessment Lungs: scattered rhonchi over large air ways; exp wheezes Cor: reg A&R * As documented in our note above * I spoke with her and answered questions PALOMO ANDINO Aug 26, 2016 10:16 CONRADO NG MD FACP FAC CCDS Aug 26, 2016 16:17
--- NOTE | 2016-08-26 10:55 | Progress Note-Hospitalist ---
Progress Note HPI/CC on Admission The patient is a 61-year-old white female who presented to the emergency room last night with complaints of shortness of breath. 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 She reports that she had gone to [facility] services early on Thursday morning. The children who are there seemed to be coughing and sneezing a good deal. By she had begun to cough and produce more sputum which was yellowish as compared to her usual white. This continued to decline and she saw the doctor in [place] on Thursday and was given an antibiotic. By Thursday she had gotten much worse and the her daughter brought her to the emergency room where she was admitted. She reports that when taking prednisone she is a borderline diabetic. She also has an Advair inhaler and a nebulizer which she does not use. Her usual daily medication is a Spiriva inhaler. Progress Notes/Assess & Plan Date Seen 08/26/16 Diagonsis/Assessment & Plan Chart Review: WBC 18.8 from 10.6 from steroids CMP normal except glucose because of steroids Elevated BNP Pharmacy Review: Pt currently on day 3 of Rocephin and Zithromax. Patient Interview: Pt states that she did not sleep well last night. Pt states that she is struggling to breathe worse today than yesterday. Pt states that walking to the bathroom leaves her very SOB. Pt states that BMs are normal, but she feels a little bloated. Physical exam reveals significant wheezing. Vital signs stable, pleasant, oriented 3, up in chair, using O2 Regular rate rhythm, wheezing throughout all [place] and diminished breath sounds very tight No edema Laboratory Tests 08/26/16 08:32 A/P: Severe COPD w/exacerbation AF Smoker Obesity DALE Leukocytosis DM Plan: Solumedrol 80mg IV q8 Rocephin and Zithromax Consult Dr. Mcdonald Consult Dr. Ng Nebulizer treatments May need swing bed due to the severity of her COPD Scribed by Sj Olivier under the direct supervision of Dr. Peres. SUSSY PERES DO Aug 26, 2016 10:55
[2016-08-26 12:00] VITALS: BP 125/58
[2016-08-26 16:00] VITALS: BP 128/62
[2016-08-26 19:50] VITALS: BP 140/66
[2016-08-26] MEDS: AZITHROMYCIN 250 MG TAB (ZITHROMAX) PO SCH (20:39)
[2016-08-26] MEDS: cefTRIAXone INJECTION 1,000 MG in NS (IVPB) 50 ML IV SCH (20:39)
[2016-08-26] MEDS: ZOLPIDEM 5 MG (AMBIEN) TAB PO SCH (20:39)
[2016-08-27] VITALS: BP 140/64
[2016-08-27] MEDS: CATHETER FLUSH 10 ML SYR IV PRN (02:02)
[2016-08-27] MEDS: methylPREDNISolone 125 MG (Solu-MEDROL) VIAL IV SCH ×3 (02:02→18:24)
[2016-08-27 04:00] VITALS: BP 107/53
[2016-08-27 05:01] LABS: BASOPHILS % (AUTO) 0 % (0-10); EOSINOPHILS % (AUTO) 0 % (0-10); LYMPHOCYTES # (AUTO) 0.6 X 10^3 (1.0-4.0); LYMPHOCYTES % (AUTO) 5 % (12-44); MEAN CORPUSCULAR HEMOGLOBIN 29 PG (25-34); MEAN CORPUSCULAR HGB CONC 32 G/DL (32-36); MEAN CORPUSCULAR VOLUME 89 FL (80-99); MEAN PLATELET VOLUME 10.1 FL (7.4-10.4); MONOCYTES # (AUTO) 0.5 X 10^3 (0.0-1.0); MONOCYTES % (AUTO) 4 % (0-12); NEUTROPHILS # (AUTO) 11.7 X 10^3 (1.8-7.8); NEUTROPHILS % (AUTO) 92 % (42-75); PLATELET COUNT 202 10^3/uL (130-400); RED BLOOD COUNT 3.73 10^6/uL (4.35-5.85); RED CELL DISTRIBUTION WIDTH 13.8 % (10.0-14.5); WHITE BLOOD COUNT 12.8 10^3/uL (4.3-11.0)
[2016-08-27 05:18] LABS: ALANINE AMINOTRANSFERASE 23 U/L (0-55); ALBUMIN 3.5 G/DL (3.2-4.5); ANION GAP 11 MMOL/L (5-14); ASPARTATE AMINO TRANSFERASE 17 U/L (5-34); BILIRUBIN,TOTAL 0.2 MG/DL (0.1-1.0); BLOOD UREA NITROGEN 16 MG/DL (7-18); BUN/CREATININE RATIO 25; CALCIUM 8.5 MG/DL (8.5-10.1); CARBON DIOXIDE 28 MMOL/L (21-32); CHLORIDE 99 MMOL/L (98-107); CREATININE SERUM 0.65 MG/DL (0.60-1.30); GFR ESTIMATED > 60; GLUCOSE 225 MG/DL (70-105); POTASSIUM 3.6 MMOL/L (3.6-5.0); SODIUM 138 MMOL/L (135-145); TOTAL PROTEIN 5.7 G/DL (6.4-8.2)
[2016-08-27] MEDS: CATHETER FLUSH 10 ML SYR IV SCH ×3 (06:11→20:58)
[2016-08-27] MEDS: inSUlin ASPART (NovoLOG) 1 UNIT/0.01 ML (CHARGE PER UNIT) SC SCH ×4 (06:11→20:57)
[2016-08-27] MEDS: RT-LEVALBUTEROL (XOPENEX) 1.25 MG/3 ML NEB NON-FORMULARY INH SCH ×3 (07:34→22:38)
[2016-08-27] MEDS: UMECLIDINIUM BROMIDE (INCRUSE ELLIPTA) 7'S IH SCH (07:36)
[2016-08-27] MEDS: RT-ADVAIR HFA 115/21 MCG PER PUFF IH SCH ×2 (07:36→21:40)
[2016-08-27] MEDS: NICOTINE 21 MG (NICODERM) PATCH TD SCH (07:57)
[2016-08-27] MEDS: PATCH REMOVAL TP SCH (07:58)
[2016-08-27 08:00] VITALS: BP 158/67
[2016-08-27] MEDS: DILTIAZEM 180 MG (CARDIZEM CD) CAP PO SCH (08:32)
[2016-08-27] MEDS: APIXABAN 5 MG (ELIQUIS) TABLET PO SCH ×2 (08:32→20:57)
--- NOTE | 2016-08-27 10:03 | Progress Note-Cardiology ---
Cardiology SOAP Progress Note Subjective: Sitting up in a chair at the bedside. States she feels much better this morning. No c/o CP. Reports productive cough. Continues to feel short of breath, but improving. No c/o palpitations. Objective: I&O/Vital Signs Vital Sign - Last 12Hours 08/27/16 08/27/16 08/27/16 08/27/16 00:00 01:00 04:00 07:00 Temp 96.7 96.8 Pulse 84 84 77 72 Resp 20 16 B/P 140/64 107/53 Pulse Ox 95 95 O2 Delivery Nasal Cannula NIV/CPAP O2 Flow Rate 4.00 4.00 08/27/16 08/27/16 08/27/16 07:34 07:34 08:00 Temp 97.4 Pulse 81 Resp 20 B/P 158/67 Pulse Ox 95 95 94 O2 Delivery Nasal Cannula O2 Flow Rate 4.00 4.00 Intake and Output 08/27/16 00:00 Intake Total 2370 ml Output Total 2600 ml Balance -230 ml Weight (Pounds): 198 Weight (Ounces): 2.0 Weight (Calculated Kilograms): 89.430754 Constitutional: appears stated ageNo apparent distress, well-developed well- nourished Respiratory: rhonchi other (diminished lower lobes bilat; loose productive cough; prolonged exp phase) Cardiovascular: regular rate-rhythmNo JVD, S1 and S2 Gastrointestional: No tender, soft roundNo spleenomegaly Extremities: No clubbing, No cyanosis, No significant edema Neurologic/Psychiatric: alert oriented x 3 grossly intact Skin: No rash, No ulcerations Results/Procedures: Labs Laboratory Tests 08/26/16 14:52: Glucometer 242H 08/26/16 20:33: Glucometer 228H 08/27/16 04:00: Alanine Aminotransferase (ALT/SGPT) 23, Albumin 3.5, Alkaline Phosphatase 61, Anion Gap 11, Aspartate Amino Transf (AST/SGOT) 17, BUN/Creatinine Ratio 25, Basophils # (Auto) 0.0, Basophils (%) (Auto) 0, Blood Urea Nitrogen 16, Calcium Level 8.5, Carbon Dioxide Level 28, Chloride Level 99, Creatinine 0.65, Eosinophils # (Auto) 0.0, Eosinophils (%) (Auto) 0, Estimat Glomerular Filtration Rate > 60, Glucose Level 225H, Hematocrit 33L, Hemoglobin 10.7L, Lymphocytes # (Auto) 0.6L, Lymphocytes (%) (Auto) 5L, Mean Corpuscular Hemoglobin 29, Mean Corpuscular Hemoglobin Concent 32, Mean Corpuscular Volume 89, Mean Platelet Volume 10.1, Monocytes # (Auto) 0.5, Monocytes (%) (Auto) 4, Neutrophils # (Auto) 11.7H, Neutrophils (%) (Auto) 92H, Platelet Count 202, Potassium Level 3.6, Red Blood Count 3.73L, Red Cell Distribution Width 13.8, Sodium Level 138, Total Bilirubin 0.2, Total Protein 5.7L, White Blood Count 12.8H 08/27/16 09:55: Glucometer 257H Microbiology 08/24/16 Blood Culture - Preliminary, Resulted No growth 08/24/16 Influenza Types A,B Antigen (JOEY) - Final, Complete A/P: Assessment: Pneumonia - management per medical services H/O Chronic dizziness of undetermined etiology (most pronounced when lying down) , symptoms suggestive of vertigo Acute exacerbation of COPD - pulmonary services managing Echocardiogram of December 04, 2015 showed LVEF approx 55%. Epicardial fat vs small pericardial effusion. This does not appear to be not appear to be of hemodynamic significance. Mild MR and TR. No evidence of any significant valvular stenosis. PASP approx 35mHg MPI of 12-04-15 showed no evidence of significant myocardial ischemia or infarction. Normal regional wall motion. Normal global LV systolic function with an LVEF of 61% Paroxysmal atrial flutter diagnosed in April 2015 at [facility] - currently SR Echo of 05/04/15 at [facility]: LVEF 60-65%, no wall motion abnormality, PASP 43 mmHg, no valvular stenosis, mild MR, mild MAC Surgery at [facility] in the 1960s for a hole in the heart; details unknown Chronic tobacco use DALE, treated with CPAP Obesity with BMI approx 35 Plan: Pneumonia with acute exacerbation of COPD which is being managed by medical and pulmonary services. Continue current regimen Cardiac status clinically stable Physician Assessment Physician Assessment Lungs: fair to good bilat air entry; exp wheezes Cor: reg A&R * As documented in our note above * I spoke with her and answered questions PALOMO ANDINO Aug 27, 2016 10:03 XIOMY CHRISTY MD [facility] Aug 27, 2016 12:00
[2016-08-27] MEDS ORDERED: PIPERACILLIN SODIUM/TAZOBACTAM 4.5 GM in NS (IVPB) 100 ML IV NR (11:00)
--- NOTE | 2016-08-27 11:54 | Progress Note-Hospitalist ---
Progress Note HPI/CC on Admission The patient is a 61-year-old white female who presented to the emergency room last night with complaints of shortness of breath. 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 She reports that she had gone to [place] [facility] early on Thursday morning. The children who are there seemed to be coughing and sneezing a good deal. By she had begun to cough and produce more sputum which was yellowish as compared to her usual white. This continued to decline and she saw the doctor in [place] on Thursday and was given an antibiotic. By Thursday she had gotten much worse and the her daughter brought her to the emergency room where she was admitted. She reports that when taking prednisone she is a borderline diabetic. She also has an Advair inhaler and a nebulizer which she does not use. Her usual daily medication is a Spiriva inhaler. Progress Notes/Assess & Plan Date Seen 08/27/16 Diagonsis/Assessment & Plan Chart Review: No fever Vitals stable WBC 12.8 down from 18 CMP normal except Glucose 225 CXR yesterday worsening bilateral pulmonary infiltrates Pt on Rocephin and Zithromax currently Patient Interview: Pt states that she feels great today. Pt states that she slept well last night. Pt has been using IS and producing mucus. Physical exam reveals wheezing, but improved overall. Pt has not yet had a BM today. Dr. Peres discusses plans for DC tomorrow if pt feels good, and pt is agreeable. Pt uses a pharmacy in [place] but cannot remember the name. Pt requests Xopenex inhaler for DC. Pt does not have a PCP, but sees Drs. Mcdonald and Hernandez regularly. Pt has nebulizer at home, but prefers to use inhalers. Vital signs stable, pleasant, oriented 3, up in chair, using O2 Regular rate rhythm, wheezing much improved but just only end expiratory phase now No edema Laboratory Tests 08/27/16 04:00 A/P: Severe COPD w/exacerbation AF Smoker Obesity DALE Leukocytosis DM Plan: Solumedrol 80mg IV q8 Rocephin and Zithromax Consult Dr. Mcdonald Consult Dr. Ng Nebulizer treatments May need swing bed due to the severity of her COPD Repeat CXR in am Check labs in AM DC tomorrow if able Scribed by Sj Olivier under the direct supervision of Dr. Peres. SUSSY PERES DO Aug 27, 2016 11:54
[2016-08-27 12:00] VITALS: BP 124/60
--- NOTE | 2016-08-27 13:47 | Pulmonary Progress Note ---
Subjective Subjective/Events-last exam no complications noted. Exam Exam Vital Signs Date Time Temp Pulse Resp B/P Pulse Ox O2 Delivery O2 Flow Rate FiO2 08/27/16 12:00 97.5 69 16 124/60 96 Nasal Cannula 4.00 08/27/16 08:10 94 Nasal Cannula 4.00 08/27/16 08:00 97.4 81 20 158/67 94 Nasal Cannula 4.00 08/27/16 07:34 95 08/27/16 07:34 95 4.00 08/27/16 07:00 72 08/27/16 04:00 96.8 77 16 107/53 95 NIV/CPAP 4.00 08/27/16 01:00 84 08/27/16 00:00 96.7 84 20 140/64 95 Nasal Cannula 4.00 08/26/16 21:49 95 4.00 08/26/16 20:05 95 Nasal Cannula 4.00 08/26/16 19:50 98.0 78 20 140/66 97 Nasal Cannula 4.00 08/26/16 19:00 80 08/26/16 16:00 97.3 82 22 128/62 93 Nasal Cannula 4.00 08/26/16 14:02 94 4.00 I & O 08/27/16 07:00 Intake Total 2670 ml Output Total 3400 ml Balance -730 ml General Appearance: No Apparent Distress HEENT: Normal ENT Inspection Neck: Normal Inspection Respiratory: Decreased Breath Sounds (breath sounds are distant. There is bilateral wheezing noted in the upper portion of the lower lobes posteriorly), Rhonci Cardiovascular: No Edema, No Gallop, No JVD, No Murmur, Normal Peripheral Pulses, Irregularly Irregular Capillary Refill: Less Than 3 Seconds Extremity: Normal Capillary Refill, Normal Inspection, Normal Range of Motion, Non Tender, No Calf Tenderness, No Pedal Edema Skin: Normal Color, Warm/Dry Lymphatic: No Adenopathy Results Lab Laboratory Tests 08/26/16 08:32 08/27/16 04:00 Assessment/Plan Assessment/Plan Severe COPD with AE -Solumedrol -rocephin and azithromycin -Xopenex, advair Worsening SOB -Check CXR, and labs including BNP -Lasix 40mg x 1 Tobacco use OBesity DALE Clinical Quality Measures DVT/VTE Risk/Contraindication: Risk Factor Score Per Nursin RFS Level Per Nursing on Admit: 2=Moderate CARMEN NARANJO DO Aug 27, 2016 13:47
[2016-08-27 15:40] VITALS: BP 148/68
[2016-08-27] MEDS ORDERED: PIPERACILLIN SODIUM/TAZOBACTAM 4.5 GM in NS (IVPB) 100 ML IV SCH (17:00)
[2016-08-27 20:00] VITALS: BP 137/65
[2016-08-27] MEDS: ZOLPIDEM 5 MG (AMBIEN) TAB PO SCH (20:57)
[2016-08-27] MEDS: cefTRIAXone INJECTION 1,000 MG in NS (IVPB) 50 ML IV SCH (20:58)
[2016-08-28] VITALS: BP 134/71
[2016-08-28] MEDS: methylPREDNISolone 125 MG (Solu-MEDROL) VIAL IV SCH (02:03)
[2016-08-28 04:50] VITALS: BP 148/75
[2016-08-28] MEDS: inSUlin ASPART (NovoLOG) 1 UNIT/0.01 ML (CHARGE PER UNIT) SC SCH ×2 (06:14→11:31)
[2016-08-28] MEDS: CATHETER FLUSH 10 ML SYR IV SCH (06:14)
[2016-08-28 06:16] LABS: BASOPHILS % (AUTO) 0 % (0-10); EOSINOPHILS % (AUTO) 0 % (0-10); LYMPHOCYTES # (AUTO) 0.7 X 10^3 (1.0-4.0); LYMPHOCYTES % (AUTO) 8 % (12-44); MEAN CORPUSCULAR HEMOGLOBIN 29 PG (25-34); MEAN CORPUSCULAR HGB CONC 32 G/DL (32-36); MEAN CORPUSCULAR VOLUME 88 FL (80-99); MEAN PLATELET VOLUME 10.1 FL (7.4-10.4); MONOCYTES # (AUTO) 0.5 X 10^3 (0.0-1.0); MONOCYTES % (AUTO) 6 % (0-12); NEUTROPHILS # (AUTO) 7.8 X 10^3 (1.8-7.8); NEUTROPHILS % (AUTO) 87 % (42-75); PLATELET COUNT 192 10^3/uL (130-400); RED BLOOD COUNT 3.89 10^6/uL (4.35-5.85); RED CELL DISTRIBUTION WIDTH 13.3 % (10.0-14.5); WHITE BLOOD COUNT 9.1 10^3/uL (4.3-11.0)
[2016-08-28 06:37] LABS: ALANINE AMINOTRANSFERASE 33 U/L (0-55); ALBUMIN 3.5 G/DL (3.2-4.5); ANION GAP 12 MMOL/L (5-14); ASPARTATE AMINO TRANSFERASE 20 U/L (5-34); BILIRUBIN,TOTAL 0.2 MG/DL (0.1-1.0); BLOOD UREA NITROGEN 16 MG/DL (7-18); BUN/CREATININE RATIO 23; CALCIUM 8.5 MG/DL (8.5-10.1); CARBON DIOXIDE 29 MMOL/L (21-32); CHLORIDE 95 MMOL/L (98-107); CREATININE SERUM 0.69 MG/DL (0.60-1.30); GFR ESTIMATED > 60; GLUCOSE 278 MG/DL (70-105); POTASSIUM 3.7 MMOL/L (3.6-5.0); SODIUM 136 MMOL/L (135-145); TOTAL PROTEIN 5.7 G/DL (6.4-8.2)
[2016-08-28] MEDS: NICOTINE 21 MG (NICODERM) PATCH TD SCH (07:36)
[2016-08-28] MEDS: PATCH REMOVAL TP SCH (07:36)
[2016-08-28] MEDS: RT-LEVALBUTEROL (XOPENEX) 1.25 MG/3 ML NEB NON-FORMULARY INH SCH (07:46)
[2016-08-28] MEDS: RT-ADVAIR HFA 115/21 MCG PER PUFF IH SCH (07:48)
--- NOTE | 2016-08-28 07:50 | Diagnostic Imaging Report ---
INDICATION: Pneumonia and COPD. PA and lateral views of the chest are obtained with comparison made study of 08/26/2016. FINDINGS: Overall heart size is within normal limits. Pulmonary vascularity is at the upper limits of normal with perihilar and basilar atelectasis, bilaterally. No pneumothorax or focal consolidation is identified. There is no significant pleural fluid. IMPRESSION: Bilateral atelectasis and/or pneumonitis without acute abnormality detected. Dictated by: Dictated on workstation # [id number]
[2016-08-28] MEDS: UMECLIDINIUM BROMIDE (INCRUSE ELLIPTA) 7'S IH SCH (07:51)
[2016-08-28 08:00] VITALS: BP 152/73
[2016-08-28] MEDS: APIXABAN 5 MG (ELIQUIS) TABLET PO SCH (08:40)
[2016-08-28] MEDS: DILTIAZEM 180 MG (CARDIZEM CD) CAP PO SCH (08:40)
--- NOTE | 2016-08-28 10:31 | Pulmonary Progress Note ---
Subjective Subjective/Events-last exam PT is feeling improved and wants to go home. Exam Exam Vital Signs Date Time Temp Pulse Resp B/P Pulse Ox O2 Delivery O2 Flow Rate FiO2 08/28/16 08:00 Nasal Cannula 4.00 08/28/16 08:00 96.9 83 20 152/73 97 Nasal Cannula 4.00 08/28/16 07:46 95 4.00 08/28/16 04:50 97.9 75 18 148/75 96 NIV/CPAP 4.00 08/28/16 01:00 79 08/28/16 00:00 97.9 88 18 134/71 100 Nasal Cannula 4.00 08/27/16 22:38 98 4.00 08/27/16 20:00 98.1 73 16 137/65 96 Nasal Cannula 4.00 08/27/16 20:00 Nasal Cannula 4.00 08/27/16 19:00 83 08/27/16 15:47 94 4.00 08/27/16 15:40 97.2 74 16 148/68 98 Nasal Cannula 4.00 08/27/16 13:00 69 08/27/16 12:00 97.5 69 16 124/60 96 Nasal Cannula 4.00 I & O 08/28/16 07:00 Intake Total 2890 ml Output Total 4200 ml Balance -1310 ml General Appearance: No Apparent Distress HEENT: Normal ENT Inspection Neck: Normal Inspection Respiratory: Decreased Breath Sounds Wheezing Cardiovascular: No Edema No Gallop No JVD No Murmur Normal Peripheral Pulses Irregularly Irregular Capillary Refill: Less Than 3 Seconds Extremity: Normal Capillary Refill Normal Inspection Normal Range of Motion Non Tender No Calf Tenderness No Pedal Edema Skin: Normal Color Warm/Dry Lymphatic: No Adenopathy Results Lab Laboratory Tests 08/27/16 04:00 08/28/16 05:51 Assessment/Plan Assessment/Plan Severe COPD with AE -Solumedrol -- change to prednisone taper long taper -rocephin and azithromycin Change to omnicef 300mg BID x 3 days -Xopenex, advair Worsening SOB -Check CXR, and labs including BNP -Lasix 40mg x 1 Tobacco use OBesity DALE I will see pt in f/u 3-4 wks Clinical Quality Measures DVT/VTE Risk/Contraindication: Risk Factor Score Per Nursin RFS Level Per Nursing on Admit: 2=Moderate CARMEN NARANJO DO Aug 28, 2016 10:31 CARMEN NARANJO DO Aug 28, 2016 10:31
--- NOTE | 2016-08-28 11:01 | Progress Note-Cardiology ---
Cardiology SOAP Progress Note Subjective: Shortness of breath is much improve No cp or palp or syncope Wishes to go home Objective: I&O/Vital Signs Vital Sign - Last 12Hours 08/28/16 08/28/16 08/28/16 08/28/16 00:00 01:00 04:50 07:46 Temp 97.9 97.9 Pulse 88 79 75 Resp 18 18 B/P 134/71 148/75 Pulse Ox 100 96 95 O2 Delivery Nasal Cannula NIV/CPAP O2 Flow Rate 4.00 4.00 4.00 08/28/16 08/28/16 08:00 08:00 Temp 96.9 Pulse 83 Resp 20 B/P 152/73 Pulse Ox 97 O2 Delivery Nasal Cannula Nasal Cannula O2 Flow Rate 4.00 4.00 Intake and Output 08/28/16 00:00 Intake Total 2440 ml Output Total 2600 ml Balance -160 ml Weight (Pounds): 198 Weight (Ounces): 2.0 Weight (Calculated Kilograms): 89.773417 Constitutional: appears stated ageNo apparent distress, well-developed well- nourished Respiratory: rhonchi other (Improved bilateral air entry compare to the time of admission) Cardiovascular: regular rate-rhythmNo JVD, S1 and S2 Gastrointestional: No tender, soft roundNo spleenomegaly Extremities: No clubbing, No cyanosis, No significant edema Neurologic/Psychiatric: alert oriented x 3 grossly intact Skin: No rash, No ulcerations Results/Procedures: Labs Laboratory Tests 08/27/16 16:25: Glucometer 291H 08/27/16 21:29: Glucometer 350H 08/28/16 05:51: Alanine Aminotransferase (ALT/SGPT) 33, Albumin 3.5, Alkaline Phosphatase 64, Anion Gap 12, Aspartate Amino Transf (AST/SGOT) 20, BUN/Creatinine Ratio 23, Basophils # (Auto) 0.0, Basophils (%) (Auto) 0, Blood Urea Nitrogen 16, Calcium Level 8.5, Carbon Dioxide Level 29, Chloride Level 95L, Creatinine 0.69, Eosinophils # (Auto) 0.0, Eosinophils (%) (Auto) 0, Estimat Glomerular Filtration Rate > 60, Glucose Level 278H, Hematocrit 34L, Hemoglobin 11.1L, Lymphocytes # (Auto) 0.7L, Lymphocytes (%) (Auto) 8L, Mean Corpuscular Hemoglobin 29, Mean Corpuscular Hemoglobin Concent 32, Mean Corpuscular Volume 88, Mean Platelet Volume 10.1, Monocytes # (Auto) 0.5, Monocytes (%) (Auto) 6, Neutrophils # (Auto) 7.8, Neutrophils (%) (Auto) 87H, Platelet Count 192, Potassium Level 3.7, Red Blood Count 3.89L, Red Cell Distribution Width 13.3, Sodium Level 136, Total Bilirubin 0.2, Total Protein 5.7L, White Blood Count 9.1 08/28/16 06:11: Glucometer 260H Microbiology 08/24/16 Blood Culture - Preliminary, Resulted No growth 08/24/16 Influenza Types A,B Antigen (JOEY) - Final, Complete Laboratory Tests 08/27/16 04:00 08/28/16 05:51 A/P: Assessment: Pneumonia - management per medical services H/o chronic dizziness of undetermined etiology (most pronounced when lying down) , symptoms suggestive of vertigo Acute exacerbation of COPD - pulmonary services managing Echocardiogram of December 04, 2015 showed LVEF approx 55%. Epicardial fat vs small pericardial effusion. This does not appear to be not appear to be of hemodynamic significance. Mild MR and TR. No evidence of any significant valvular stenosis. PASP approx 35mHg MPI of 12-04-15 showed no evidence of significant myocardial ischemia or infarction. Normal regional wall motion. 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
--- NOTE | 2016-08-28 11:06 | Discharge Summary-Hospitalist ---
Diagnosis/Chief Complaint Date of Admission Aug 24, 2016 at 03:45 Date of Discharge Admission Diagnosis COPD and acute exacerbation. 2.suspect infectious process, viral URI versus bronchitis. 3.atrial fibrillation Discharge Diagnosis Chart Review: No fever Vitals stable WBC 12.8 down from 18 CMP normal except Glucose 225 CXR yesterday worsening bilateral pulmonary infiltrates Pt on Rocephin and Zithromax currently Patient Interview: Pt states that she feels great today. Pt states that she slept well last night. Pt has been using IS and producing mucus. Physical exam reveals wheezing, but improved overall. Pt has not yet had a BM today. Dr. Peres discusses plans for DC tomorrow if pt feels good, and pt is agreeable. Pt uses a pharmacy in [place] but cannot remember the name. Pt requests Xopenex inhaler for DC. Pt does not have a PCP, but sees Drs. Mcdonald and Hernandez regularly. Pt has nebulizer at home, but prefers to use inhalers. Vital signs stable, pleasant, oriented 3, up in chair, using O2 Regular rate rhythm, wheezing much improved but just only end expiratory phase now No edema A/P: Severe COPD w/exacerbation AF Smoker Obesity DALE Leukocytosis DM Plan: Solumedrol 80mg IV q8 Rocephin and Zithromax Consult Dr. Mcdonald Consult Dr. Ng Nebulizer treatments May need swing bed due to the severity of her COPD Repeat CXR in am Check labs in AM DC tomorrow if able Scribed by Sj Olivier under the direct supervision of Dr. Peres. Reason Hospital Visit/Course The patient is a 61-year-old white female who presented to the emergency room last night with complaints of shortness of breath. She is known to have COPD and sees Dr. 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 She reports that she had gone to [facility] early on Thursday morning. The children who are there seemed to be coughing and sneezing a good deal. By she had begun to cough and produce more sputum which was yellowish as compared to her usual white. This continued to decline and she saw the doctor in [place] on Thursday and was given an antibiotic. By Thursday she had gotten much worse and the her daughter brought her to the emergency room where she was admitted. She reports that when taking prednisone she is a borderline diabetic. She also has an Advair inhaler and a nebulizer which she does not use. Her usual daily medication is a Spiriva inhaler. Notes from 08/28/2016: Chart Review: WBC 9.1 Hgb 11 CMP normal coil winding supervisor: RN states that pt wishes to DC, and is stable. Patient Interview: Pt states that she feels very good today and wishes to DC. Pt will use the [facility] pharmacy in [place]. Pt feels a BM coming. Physical exam stable. Lungs improved. no fever vital signs stable, pleasant, much improved Regular rate and rhythm, clear to auscultation bilaterally no wheezing is noted No edema Plan: Xopenex inhaler and Brio per Dr. Mario office DC and follow-up with Drs. Mcdonald and Hernandez Antibiotics and Steroid Sleeping pill Scribed by Sj Olivier under the direct supervision of Dr. Peres. Hospital course: Patient had a lengthy hospital course did the severity of her COPD and continued smoking. Overall she improved on high-dose steroids along with empiric IV antibiotics the chest x-ray did not show improvement although clinical exam was much improved. She was monitor closely laboratory returned back to normal along with clinical exam with much improvement so she was discharged home with close follow-up with Dr. Mcdonald and Dr. Ng and counseled to stop smoking. Discharge Summary Discharge Physical Examination Allergies: Coded Allergies: No Known Drug Allergies (Unverified , 10/18/15) Vitals & I&Os Vital Signs Date Time Temp Pulse Resp B/P Pulse Ox O2 Delivery O2 Flow Rate FiO2 08/28/16 08:00 Nasal Cannula 4.00 08/28/16 08:00 96.9 83 20 152/73 97 Hospital Course Labs (last 24 hrs) Laboratory Tests 08/27/16 16:25: Glucometer 291H 08/27/16 21:29: Glucometer 350H 08/28/16 05:51: Alanine Aminotransferase (ALT/SGPT) 33, Albumin 3.5, Alkaline Phosphatase 64, Anion Gap 12, Aspartate Amino Transf (AST/SGOT) 20, BUN/Creatinine Ratio 23, Basophils # (Auto) 0.0, Basophils (%) (Auto) 0, Blood Urea Nitrogen 16, Calcium Level 8.5, Carbon Dioxide Level 29, Chloride Level 95L, Creatinine 0.69, Eosinophils # (Auto) 0.0, Eosinophils (%) (Auto) 0, Estimat Glomerular Filtration Rate > 60, Glucose Level 278H, Hematocrit 34L, Hemoglobin 11.1L, Lymphocytes # (Auto) 0.7L, Lymphocytes (%) (Auto) 8L, Mean Corpuscular Hemoglobin 29, Mean Corpuscular Hemoglobin Concent 32, Mean Corpuscular Volume 88, Mean Platelet Volume 10.1, Monocytes # (Auto) 0.5, Monocytes (%) (Auto) 6, Neutrophils # (Auto) 7.8, Neutrophils (%) (Auto) 87H, Platelet Count 192, Potassium Level 3.7, Red Blood Count 3.89L, Red Cell Distribution Width 13.3, Sodium Level 136, Total Bilirubin 0.2, Total Protein 5.7L, White Blood Count 9.1 08/28/16 06:11: Glucometer 260H 08/28/16 10:53: Glucometer 266H Microbiology 08/24/16 Blood Culture - Preliminary, Resulted No growth 08/24/16 Influenza Types A,B Antigen (JOEY) - Final, Complete Pending Labs Laboratory Tests 08/28/16 05:51: Alanine Aminotransferase (ALT/SGPT) 33, Albumin 3.5, Alkaline Phosphatase 64, Anion Gap 12, Aspartate Amino Transf (AST/SGOT) 20, BUN/Creatinine Ratio 23, Basophils # (Auto) 0.0, Basophils (%) (Auto) 0, Blood Urea Nitrogen 16, Calcium Level 8.5, Carbon Dioxide Level 29, Chloride Level 95, Creatinine 0.69, Eosinophils # (Auto) 0.0, Eosinophils (%) (Auto) 0, Estimat Glomerular Filtration Rate > 60, Glucose Level 278, Hematocrit 34, Hemoglobin 11.1, Lymphocytes # (Auto) 0.7, Lymphocytes (%) (Auto) 8, Mean Corpuscular Hemoglobin 29, Mean Corpuscular Hemoglobin Concent 32, Mean Corpuscular Volume 88, Mean Platelet Volume 10.1, Monocytes # (Auto) 0.5, Monocytes (%) (Auto) 6, Neutrophils # (Auto) 7.8, Neutrophils (%) (Auto) 87, Platelet Count 192, Potassium Level 3.7, Red Blood Count 3.89, Red Cell Distribution Width 13.3, Sodium Level 136, Total Bilirubin 0.2, Total Protein 5.7, White Blood Count 9.1 08/28/16 06:11: Glucometer 260 08/28/16 10:53: Glucometer 266 Discharge Home Medications: Active Scripts Active Augmentin 875-125 Tablet (Amoxicillin/Potassium Clav) 1 Each Tablet 1 Each PO BID Prednisone 10 Mg Tab.ds.pk 10 Mg PO DAILY Take 6 tabs(60mg)daily,decrease by 1 tab(10mg)every other day. Breo Ellipta 100-25 Mcg INH (Fluticasone/Vilanterol) 1 Each Blst.w.dev 1 Each IH DAILY [Zolpidem Tartrate] 5 MG Tab 5 Mg PO HS Reported Azithromycin 250 Mg Tablet 250 Mg PO DAILY FILLED 08/23/16 FOR A 5 DAY THERAPY Prednisone 20 Mg Tab PO UD FILLED 08/23/16 FOR A 13 DAY TAPER 3 TABS PO DAILY X 3 DAYS 2 TABS PO DAILY X 3 DAYS 1 TAB PO DAILY X 3 DAYS 1/2 TAB PO DAILY X 4 DAYS Citalopram HBr (Citalopram Hydrobromide) 20 Mg Tablet 20 Mg PO HS Diltiazem ER (Diltiazem HCl) 180 Mg Capsule.er 180 Mg PO DAILY Vitamin D3 (Cholecalciferol (Vitamin D3)) 2,000 Unit Tablet 2,000 Unit PO DAILY Eliquis (Apixaban) 5 Mg Tablet 5 Mg PO BID Sleep-Aid (Diphenhydramine HCl) 25 Mg Capsule 50 Mg PO HS TAKES 2 (25 MG) CAPSULES Spiriva Respimat (Tiotropium [place]) 4 Gm Mist.inhal 2 Puff IH DAILY Instructions to patient/family Please see electonic discharge instructions given to patient. Clinical Quality Measures DVT/VTE Risk/Contraindication: Risk Factor Score Per Nursin RFS Level Per Nursing on Admit: 2=Moderate SUSSY PERES DO Aug 28, 2016 11:06
[2016-08-28] MEDS ORDERED: PRED10TA22 PO (11:10)
[2016-08-28] MEDS ORDERED: Zolpidem Tartrate PO (11:10)
[2016-08-28] MEDS ORDERED: AMOX-358 PO (11:10)
[2016-08-28] MEDS ORDERED: FLUT1AER IH (11:10)
[2016-08-28] MEDS ORDERED: RT-ALBUINH IH (11:52)
[2016-08-29] MEDS ORDERED: predniSONE 10 MG TAB PO SCH (09:00)
== END 2016-08-28 13:58 | disposition home or self-care (01) | DRG 190 ==
LOC: EDUNIT# 01:12 → ER 01:13 → 4TH 03:19 → INTOOBSV 03:20 → OBSVTOIN 03:20 → 4TH 08-26 09:37
PROVIDERS: ADMIT Internal Medicine; ATTEND Internal Medicine
DX: J44.1 Chronic obstructive pulmonary disease with (acute) exacerbation (principal); J44.0 Chronic obstructive pulmonary disease with (acute) lower respiratory infection; J18.9 Pneumonia, unspecified organism; I48.91 Unspecified atrial fibrillation; I10 Essential (primary) hypertension; E11.9 Type 2 diabetes mellitus without complications; E78.00 Pure hypercholesterolemia, unspecified; F17.210 Nicotine dependence, cigarettes, uncomplicated; G47.33 Obstructive sleep apnea (adult) (pediatric); R42 Dizziness and giddiness; E66.9 Obesity, unspecified; Z68.35 Body mass index [BMI] 35.0-35.9, adult
CPT/HCPCS: 36415; 71010; 71020; 80048; 80053; 81000; 82962; 83605; 83735; 83880; 84443; 84484; 85007; 85025; 85027; 85379; 87040; 87804; 93005; 94640; 94760; 96365; 96375

== ENCOUNTER → 2018-03-22 | Outpatient (CLI) | payer MEDICARE ==
[~2018-03-22] VITALS: Ht 162.6 cm; Wt 90.5 kg
[~2018-03-22] MED LIST changes: +AMOX-358 PO; +APIX5TAB PO; +AZIT250T12 PO; +CHOL200025 PO; -CITA20TA7 PO; +CITA20TA9 PO; +DILT180C82 PO; +DIPH50CA PO; +FLUT1AER IH; +IPRA3AMP31 IH; +LEVA1.2516 IH; +LEVO50TA6 PO; -NCT21TD TD; +NICO-588 TD; +PRD20T PO; +PRED10TA22 PO; +RT-ALBUINH IH; +WARF-47 PO; +WARF6TAB49 PO; +Zolpidem Tartrate PO
[2018-03-22 12:32] VITALS: BP 122/61
[2018-03-22 13:22] LABS: BASOPHILS % (AUTO) 0 % (0-10); EOSINOPHILS % (AUTO) 1 % (0-10); HEMATOCRIT 39 % (35-52); HEMOGLOBIN 12.4 G/DL (11.5-16.0); LYMPHOCYTES # (AUTO) 1.9 X 10^3 (1.0-4.0); LYMPHOCYTES % (AUTO) 20 % (12-44); MEAN CORPUSCULAR HEMOGLOBIN 29 PG (25-34); MEAN CORPUSCULAR HGB CONC 32 G/DL (32-36); MEAN CORPUSCULAR VOLUME 91 FL (80-99); MEAN PLATELET VOLUME 9.8 FL (7.4-10.4); MONOCYTES # (AUTO) 0.7 X 10^3 (0.0-1.0); MONOCYTES % (AUTO) 8 % (0-12); NEUTROPHILS # (AUTO) 6.5 X 10^3 (1.8-7.8); NEUTROPHILS % (AUTO) 71 % (42-75); PLATELET COUNT 280 10^3/uL (130-400); RED BLOOD COUNT 4.26 10^6/uL (4.35-5.85); RED CELL DISTRIBUTION WIDTH 13.9 % (10.0-14.5); WHITE BLOOD COUNT 9.3 10^3/uL (4.3-11.0)
[2018-03-22 13:23] LABS: EOSINOPHILS # (AUTO) 0.1 10^3/uL (0.0-0.3)
[2018-03-22 13:42] LABS: BUN/CREATININE RATIO 13; CALCIUM 9.4 MG/DL (8.5-10.1); CARBON DIOXIDE 25 MMOL/L (21-32); CHLORIDE 102 MMOL/L (98-107); CREATININE SERUM 0.68 MG/DL (0.60-1.30); GFR ESTIMATED > 60; GLUCOSE 150 MG/DL (70-105); POTASSIUM 3.7 MMOL/L (3.6-5.0); SODIUM 140 MMOL/L (135-145)
== END ==
LOC: PREOP 12:11
PROVIDERS: ATTEND Otolaryngology Otolaryngology/Facial Plastic Surgery
DX: Z01.812 Encounter for preprocedural laboratory examination (principal); Z11.2 Encounter for screening for other bacterial diseases; J38.7 Other diseases of larynx
CPT/HCPCS: 36415; 80048; 85025; 87081

== ENCOUNTER 2018-04-01 06:33 | Day surgery (SDC) | payer BC, MEDICARE, OTHER ==
[~2018-04-01] VITALS: Ht 162.6 cm; Wt 90.5 kg
[2018-04-01 06:55] VITALS: BP 139/76
--- NOTE | 2018-04-01 07:06 | Progress Note-Pre Operative ---
Pre-Operative Progress Note H&P Reviewed The H&P was reviewed, patient examined and no changes noted. Date Seen by Provider: Apr 01, 2018 Time Seen by Provider: 06:30 Date H&P Reviewed: Apr 01, 2018 Time H&P Reviewed: 06:30 Pre-Operative Diagnosis: Epiglottic Lesion DUSTIN WAGNER MD Apr 01, 2018 7:06 am
[2018-04-01] MEDS: LACTATED RINGERS 1,000 ML IV PRN ×2 (07:15→09:16)
[2018-04-01] MEDS ORDERED: LIDOCAINE/EPI 1%-1:200,000 (XYLOCAINE) 10 ML VIAL ONE (07:27)
[2018-04-01 07:29] LABS: INR 1.5 (0.8-1.4); PROTHROMBIN TIME PATIENT 18.1 SEC (12.2-14.7)
[2018-04-01] MEDS ORDERED: proPOfol 200 MG/20 ML (DIPRIVAN) VIAL IV ONE (07:34)
[2018-04-01] MEDS ORDERED: LIDOCAINE PF 2% 5 ML (XYLOCAINE) VIAL ONE (07:34)
[2018-04-01] MEDS ORDERED: ONDANSETRON 4 MG/2 ML (SDV) Z0FRAN ONE (07:34)
[2018-04-01] MEDS ORDERED: SEVOFLURANE (ULTANE) 15 ML INHAL SOLN ONE (07:34)
[2018-04-01] MEDS ORDERED: MIDAZOLAM 2 MG/2 ML (VERSED) VIAL ONE (07:35)
[2018-04-01] MEDS ORDERED: fentaNYL INJECTION 100 MCG/2 ML AMP ONE (07:35)
[2018-04-01] MEDS ORDERED: ROCURONIUM 10 MG/ML 5 ML SYRINGE IV ONE (08:08)
--- NOTE | 2018-04-01 08:43 | Progress Note-Post Operative ---
Post-Operative Progess Note Surgeon (s)/Retail Pharmacy Manager (s) Surgeon DUSTIN WAGNER MD Retail Pharmacy Manager n/a Pre-Operative Diagnosis Epiglottic Lesion Post-Operative Diagnosis same Post-Op Procedure Note Date of Procedure: Apr 01, 2018 Name of Procedure Performed: Direct Laryngoscopy with Biopsy Description & Findings Description and Findings: n/a Anesthesia Type get Estimated Blood Loss minimal Packing none. Specimen(s) collected/removed epiglottic lesion to path for frozen DUSTIN WAGNER MD Apr 01, 2018 8:43 am
[2018-04-01] MEDS ORDERED: ACETAMINOPHEN 325 MG TABLET PO PRN (08:45)
[2018-04-01] MEDS ORDERED: PROMETHAZINE INJ 25 MG/ML (PHENERGAN) AMP IV PRN (08:45)
[2018-04-01] MEDS ORDERED: NEOSTIGMINE 1 MG/ML 5 ML SYRINGE ONE (08:48)
[2018-04-01] MEDS ORDERED: GLYCOPYRROLATE 0.2 MG/ML (ROBINUL) 2 ML VIAL ONE (08:48)
[2018-04-01] MEDS ORDERED: HYDROmorphone 2 MG/ML VIAL (DILAUDID) IV ONE (09:15)
[2018-04-01] MEDS ORDERED: ONDANSETRON 4 MG/2 ML (SDV) Z0FRAN IVP PRN (09:15)
[2018-04-01] MEDS ORDERED: morphine INJ 10 MG/ML 1ML (SYR OR VIAL) IVP ONE (09:15)
[2018-04-01 09:50] VITALS: BP 120/61
[2018-04-01 10:20] VITALS: BP 119/56
--- NOTE | 2018-04-01 11:32 | Anesthesia-General Post-Op ---
General Patient Condition Mental Status/LOC: Same as Preop Cardiovascular: Satisfactory Nausea/Vomiting: Absent Respiratory: Satisfactory Pain: Controlled Complications: Absent Post Op Complications Complications None Follow Up Care/Instructions Patient Instructions None needed. Anesthesia/Patient Condition Patient Condition Patient is doing well, no complaints, stable vital signs, no apparent adverse anesthesia problems. No complications reported per nursing. EDIN MOJICA CRNA Apr 01, 2018 11:32
== END 2018-04-01 10:30 | disposition home or self-care (01) ==
LOC: SDC 06:33
PROVIDERS: ATTEND Otolaryngology Otolaryngology/Facial Plastic Surgery
DX: C32.1 Malignant neoplasm of supraglottis (principal); I48.91 Unspecified atrial fibrillation; J44.9 Chronic obstructive pulmonary disease, unspecified; G47.33 Obstructive sleep apnea (adult) (pediatric); F17.210 Nicotine dependence, cigarettes, uncomplicated; Z79.01 Long term (current) use of anticoagulants; Z79.899 Other long term (current) drug therapy; Z99.81 Dependence on supplemental oxygen
CPT/HCPCS: 36415; 85610; 88305; 88331; 88342

== ENCOUNTER → 2018-04-06 | Outpatient (CLI) | payer MEDICARE ==
--- NOTE | 2018-04-06 14:38 | Diagnostic Imaging Report ---
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 TECHNIQUE: Serum blood glucose level at the time of injection is 140 mg/dL. Patient was administered 13.5 mCi F-18 FDG intravenously in the right antecubital location and PET imaging from the top of the skull through mid thighs was performed. In addition, noncontrast CT was performed for attenuation correction and anatomic correlation. COMPARISON: No prior PET studies or CT studies are available for comparison. FINDINGS: There is symmetric activity throughout the brain. There is a very small region of slightly increased hypermetabolism involving the left aspect of the epiglottis. This demonstrates an SUV max of approximately 2.9. No other regions of hypermetabolism in the neck are identified. Specifically, no hypermetabolic lymph nodes are present. Imaging through the chest is without evidence of hypermetabolic lesions in the pulmonary parenchyma or mediastinum or beto. There is an area of increased uptake along the inferior margin of the right breast medially with SUV max of approximately 5. Abdomen demonstrates physiologic activity within the GI and tracts. No other regions of hypermetabolism are seen. IMPRESSION: 1. Tiny focus of hypermetabolism along the left aspect of the epiglottis, corresponding with patient's recently biopsied proven squamous cell carcinoma. No definite hypermetabolic lymph nodes in the neck are identified to suggest metastatic disease. 2. Abnormal focus of hypermetabolism along the inferomedial aspect of the right breast. Further evaluation with diagnostic mammography would be recommended. Dictated by: Dictated on workstation # [id number]
== END ==
LOC: RAD 07:58
PROVIDERS: ATTEND Otolaryngology Otolaryngology/Facial Plastic Surgery
DX: C32.1 Malignant neoplasm of supraglottis (principal); R94.8 Abnormal results of function studies of other organs and systems

== ENCOUNTER 2018-04-16 10:25 | Inpatient (IN) | payer MEDICARE ==
[2018-04-15 14:20] VITALS: BP 111/59
[~2018-04-16] VITALS: Ht 162.6 cm; Wt 93.9 kg
[~2018-04-16 10:25] MED LIST changes: -LEVA1.2516 IH; +LEVA1.2516 NEB
--- OUTSIDE RECORDS SUMMARY | 2018-04-16 10:30 | XMS REPORT | Clinical Summary ---
Author Author [facility] Organization [facility] Address Unknown Phone Unavailable Care Team Providers Care Business Executive Name Role Phone GlascoEz leo PCP Allergies Active Allergy Reactions Severity Noted Date Comments Codeine 08/22/2014 Current Medications Prescription Sig. Disp. Refills Start End Date Status Date ipratropium-albuterol Inhale 2 puffs every 6 Active (COMBIVENT) 18-103 (six) hours as needed for mcg/actuation inhaler wheezing. levalbuterol (XOPENEX) Take 1 ampule by Active 0.31 mg/3 mL nebulizer nebulization every 4 solution (four) hours as needed for wheezing. budesonide (PULMICORT) Take 0.25 mg by Active 0.25 mg/2 mL nebulizer nebulization daily. solution PREDNISONE ORAL Take by mouth. Active CITALOPRAM HYDROBROMIDE Take by mouth. Active (CITALOPRAM ORAL) omeprazole (PRILOSEC) 20 Take one capsule (20 mg 30 capsule 0 Active MG capsule total) by mouth daily. 15 Active Problems Not on file Social History Tobacco Use Types Packs/Day Years Used Date Former Smoker Alcohol Use Drinks/Week oz/Week Comments No Sex Assigned at Date Recorded Not on file Last Filed Vital Signs Vital Sign Reading Time Taken Blood Pressure 114/56 08/22/2014 3:19 PM MACHINE CANDLE MOLDER Pulse 79 08/22/2014 3:19 PM MACHINE CANDLE MOLDER Temperature 36 C (96.8 F) 08/22/2014 11:08 AM MACHINE CANDLE MOLDER Respiratory Rate 20 08/22/2014 3:19 PM MACHINE CANDLE MOLDER Oxygen Saturation 98% 08/22/2014 3:19 PM MACHINE CANDLE MOLDER Inhaled Oxygen - - Concentration Weight 90.7 kg (200 lb) 08/22/2014 11:08 AM MACHINE CANDLE MOLDER Height 162.6 cm (5' 4") 08/22/2014 11:08 AM MACHINE CANDLE MOLDER Body Mass Index 34.33 08/22/2014 11:08 AM MACHINE CANDLE MOLDER Plan of Treatment Not on file Results Not on filefrom Last 3 Months
--- OUTSIDE RECORDS SUMMARY | 2018-04-16 10:30 | XMS REPORT | Encounter Summary ---
Author Author [facility] Organization [facility] Address Unknown Phone Unavailable Care Team Providers Care Engineering Professionals Name Role Phone Ami Topete MD PCP Reason for Visit * Reason Comments Results ECHO Encounter Details Date Type Department Care Team Description 04/02/2018 Telephone Cardiovascular Medicine Jelly Lipscomb Results ( ECHO) [address] [place] [address] Social History Tobacco Use Types Packs/Day Years Used Date Current Every Day Smoker Cigarettes Smokeless Tobacco: Never Used Comments: Currently smoking 2-3 cigarettes per day Alcohol Use Drinks/Week oz/Week Comments No Sex Assigned at Date Recorded Not on file as of this encounter Functional Status Functional Status Response Date of Assessment Does the patient have a hearing impairment: No 06/09/2017 Does the patient have a visual impairment: Yes 06/09/2017 Does the patient have impaired ambulation: No 06/09/2017 Does the patient have an activity of daily living No 06/09/2017 (ADL) impairment: Does the patient have an instrumental activity of No 06/09/2017 daily living (IADL) impairment: Cognitive Status Response Date of Assessment Does the patient have a cognitive impairment: No 06/09/2017 as of this encounter Miscellaneous Notes * Telephone Encounter - Jelly Lipscomb - 04/02/2018 12:53 PM CDT Patient notified of results on 03/30/18, see phone note. ----- Message from Lisset Turner RN sent at 04/02/2018 8:12 AM CDT ----- ----- Message ----- From: Odell De Oliveira MD Sent: 04/01/2018 6:09 PM To: Lisset Turner RN Looks good. Can you please let the patient know? Thanks in this encounter Plan of Treatment Date Type Specialty Care Team Description 03/04/2018 Procedure Pass Pulmonology as of this encounter Visit Diagnoses Not on filein this encounter
--- OUTSIDE RECORDS SUMMARY | 2018-04-16 10:30 | XMS REPORT | Encounter Summary ---
Author Author [facility] Organization [facility] Address Unknown Phone Unavailable Care Team Providers Care Paper Twister Name Role Phone Ami Topete MD PCP Reason for Visit * Reason Comments Follow Up cardiac clearance requested-needs ECHO Encounter Details Date Type Department Care Team Description 03/17/2018 Telephone Cardiovascular Medicine Sarita Moeller RN Follow Up (cardiac [id number] clearance requested-needs [address] ECHO) [place] [address] Social History Tobacco Use Types Packs/Day Years [...] encounter Miscellaneous Notes * Telephone Encounter - Sarita Moeller RN - 03/17/2018 9:48 AM CDT Patient returned my call. Called her back to discuss testing required for cardiac clearance. Pt requested testing be completed closer to home. I called [facility] in [place], [place] and [facility] in [place], [place] and neither had openings for ECHO until the middle of March. Offered to get patient in tomorrow for an ECHO at the [facility]. Pt declined that offer and stated that she does not drive downtown because she gets confused and ends up getting lost. First available appointment at [facility] offered. Pt decided to schedule on 03/25 at 10am. Patient's surgery was initially scheduled for that day, she will have to reschedule. Pt verbalized understanding and agreed to plan. No questions or concerns at this time. I called TOMI Gomes with the [facility]. Reviewed above information with her. She stated that she will discuss with the surgeon and move the surgery to a later date. We will fax over cardiac clearance when the ECHO has been read and CROWN IRONER has given the ok. Eliseo verbalized understanding, no additional questions at this time. * Telephone Encounter - Sarita Moeller RN - 03/17/2018 8:41 AM CDT Called patient to discuss [facility]ON[facility] recommendations of completing ordered ECHO prior to providing cardiac clearance for surgery. No authorization to leave detailed message on chart. LM asking patient to call back office, phone number provided. Called TOMI Gomes ([phone]) at the [facility] to notify her that patient must complete ECHO prior to cardiac clearance being given for surgery. Eliseo stated that she will call patient as well. ----- Message from Taylor Bryant MD sent at 03/16/2018 5:55 PM CDT ----- Regarding: RE: requesting cardiac clearance She is refusing thallium stress test. She should at the very least get an echo before we can give any opinion as to her risk ----- Message ----- From: Sarita Moeller RN Sent: 03/16/2018 9:49 AM To: Taylor Bryant MD Subject: requesting cardiac clearance Pt seen in office on 03/04/18 Type of Surgery: Direct Laryngoscopy with biopsy of the epiglottis Date of Surgery: 03/25/18 @ [facility] in [place], [place] Coumadin (for chronic A-Fib) managed by PCP- they will provide the hold plan CHADS-VASC:1 (gender) ECHO: ordered by R 07/2017; not completed Stress Test: ordered by R 07/2017; not completed 3L O2 via ID at baseline Requesting cardiac clearance for surgery. in this encounter Plan of Treatment Date Type Specialty Care Team Description 03/04/2018 Procedure Pass Pulmonology as of this encounter Visit Diagnoses Not on filein this encounter
--- OUTSIDE RECORDS SUMMARY | 2018-04-16 10:30 | XMS REPORT | Clinical Summary ---
Author Author [facility] Organization [facility] Address Unknown Phone Unavailable Care Team Providers Care Nursing Unit Manager Name Role Phone Ami Topete MD PCP Source Comments Some departments are not documenting in the electronic medical record. If you do not see the information that you expected, contact Release of Information in the Health Information Management department at [phone] for further assistance in locating additional records.[facility] Allergies Active Allergy Reactions Severity Noted Date Comments Codeine NAUSEA ONLY Low 07/17/2017 Current Medications Prescription Sig. Disp. Refills Start End Date Status Date levothyroxine (SYNTHROID) Take 50 mcg by mouth Active 50 mcg tablet daily 30 minutes before breakfast. citalopram (CELEXA) 20 mg Take 20 mg by mouth at Active tablet bedtime daily. diphenhydrAMINE Take 50 mg by mouth at Active (BENADRYL) 50 mg capsule bedtime daily. albuterol (PROAIR HFA) 90 Inhale 1 puff by mouth Active mcg/actuation inhaler into the lungs daily. Shake well before use. tiotropium bromide Inhale 2 puffs by mouth Active (SPIRIVA RESPIMAT) 2.5 into the lungs as Needed. mcg/actuation inhaler levalbuterol(+) (XOPENEX) Inhale 1.25 mg solution Active 1.25 mg/3 mL nebulizer by nebulizer as directed solution three times daily as needed for Wheezing. fluticasone (FLONASE) 50 Apply 2 sprays to each 16 g 11 06/19/20 Active mcg/actuation nasal spray nostril as directed 17 daily. Shake bottle gently before using. albuterol-ipratropium Inhale 1 vial by 360 mL 11 06/19/20 Active (DUO-NEB, DUO-VENT) 0.5 nebulizer as directed 17 mg-3 mg(2.5 mg base)/3 mL four times daily. nebulizer solution cetirizine (ZYRTEC) 10 mg Take 10 mg by mouth every Active tablet morning. warfarin (COUMADIN) 2 mg Take 1 tablet by mouth 45 tablet 0 08/08/19 Active tablet every Thursday. Evening 18 warfarin (COUMADIN) 6 mg Take 1 tablet by mouth 90 tablet 0 08/06/19 Active tablet six times weekly. 18 Everyday of the week except for Saturdays. Takes in evening. diltiazem CD (CARDIZEM Take one capsule by mouth 90 capsule Active CD) 180 mg capsule daily. 18 fluticasone-vilanterol(+) Inhale one puff by mouth 1 Inhaler Active (BREO ELLIPTA) 100-25 mcg into the lungs daily. 18 inhalation disk Active Problems Problem Noted Date Lymphadenopathy 07/02/2017 Overview: Added automatically from request for surgery [id number] Pulmonary nodules 06/18/2017 Overview: - CT Chest 04/2017 - multiple bilateral nodules, largest 1.6 cm - PET 06/2017 - low level metabolic activity of bilateral pulmonary nodules, hypermetabolic mediastinal and bilateral hilar lymphadenopathy - EBUS FNA 07/10/2017: polymorphous lymphocytes, no carcinoma - CT Chest 09/10/2017: stable scattered bilateral pulmonary nodules since 05/18/2017, essentially unchanged mediastinal and hilar adenopathy, which remains indeterminate; small focal groundglass opacity within the RUL, likely atelectasis or scarring - CT Chest 03/04/2018: stable from previous (08/2017) L ast Assessment & Plan: Assessment/Plan: - Repeat CT Chest in 6 months to ensure stability Atrial fibrillation (HCC) 06/18/2017 Overview: - CHADSVasc score 2 - On warfarin for stroke prevention L ast Assessment & Plan: Mrs. Rodrigues is describing atrial fibrillation episodes occurring just for a few minutes once a month. They have not changed in frequency. She remains on anticoagulation and Cardizem. We discussed the possibility of adding antiarrhythmic agent. As she is feeling well without any change in her arrhythmia burden, we will continue current medications. If she should develop increasing A. fib episodes that are symptomatic, then I would favor a coronary artery CTA or thallium stress test before initiation of flecainide. Centrilobular emphysema (HCC) 06/18/2017 Overview: GOLD Staging: D4 mMRC: 2-3 GOLD classification of airflow obstruction: 4 Number exacerbations in past year: 1 PFT (06/18/2017) FVC 1.42L (44% pred) FEV1 0.71L (29% pred) FEV1/FVC 50% Medication Regimen Breo once daily Spiriva 2 puffs once daily QTc 500 today, no exacerbations since 05/2017 Albuterol inhaler every 4 hours as needed Duonebs every 4 hours as needed Vaccinations Influenza - Due 03/2018 Pneumococcal - Up to date Prevnar - Due at age 63 Oxygen [employer], 3-4L baseline Pulm Rehab Discussed with patient, but [place] is [place] be difficult to her to manage Smoking Active 2-3 cigarette smoker, previously much more L ast Assessment & Plan: Assessment/Plan: - Continue current inhaler regimen with LAMA/LABA/ICS. Considering her prolonged QTc today at her cardiology clinic appointment and her lack of exacerbations over the past 9 months, we will discontinue azithromycin at this time as risk seems higher than benefit. - Complete tobacco cessation is recommended - Continue baseline O2 - Encouraged her to have an influenza vaccination prior to the end march Tobacco abuse 06/18/2017 Last Assessment & Plan: Unfortunately, Mrs. Rodrigues continues to smoke. She is not interested in quitting tobacco use at this time. She understands the deleterious effects of smoking. I strongly urged her to quit smoking. Chronic hypoxemic respiratory failure (HCC) 06/18/2017 Overview: - Likely hypercarbic respiratory failure, as well, as she has a Bicarb of 30 on her chemistry L ast Assessment & Plan: Assessment/Plan: - Continue O2 (3L) and CPAP Hypothyroidism 06/18/2017 DALE on CPAP 06/18/2017 Overview: - Compliant with CPAP L ast Assessment & Plan: Assessment/Plan: - Continue excellent compliance Post-nasal drip 06/18/2017 Last Assessment & Plan: Assessment/Plan: - Continue Flonase COPD exacerbation (HCC) 06/06/2017 Last Assessment & Plan: Assessment/Plan: - Prednisone 40 mg x 5 days, call if symptoms does not improve Encounters Date Type Specialty Care Team Description 04/02/2018 Telephone Cardiology Jelly Lipscomb Results (ECHO) 03/30/2018 Telephone Cardiology Yanna Roe RN Cardiac Clearance 03/25/2018 Hospital Cardiology Taylor Bryant MD Encounter 03/17/2018 Telephone Cardiology Sarita Moeller RN Follow Up (cardiac clearance requested-needs ECHO) 03/17/2018 Telephone Cardiology Sarita Moeller RN Error 03/10/2018 Telephone Pulmonology Ashley Wolff MD Appointment 03/04/2018 Office Visit Pulmonology Ashley Wolff MD Chronic obstructive pulmonary disease, unspecified COPD type (HCC) (Primary Dx); Pulmonary nodules; DALE on CPAP; Centrilobular emphysema (HCC); Chronic hypoxemic respiratory failure (HCC) 03/04/2018 Hospital Radiology Ashley Wolff MD Encounter 03/04/2018 Office Visit Cardiology Odell De Oliveira MD Atrial fibrillation Taylor Bryant MD (Previously saw YMR) 03/04/2018 Telephone Cardiology Yanna Roe RN Anticoagulation ( PCP to manage warfarin) 02/09/2018 Telephone Cardiology Brianne Bermudez RN Medication Refill 09/10/2017 Procedure Pass Radiology from Last 3 Months Family History Medical History Relation Name Comments Diabetes Brother Heart Failure Brother Heart valvular Brother valve replaced Pacemaker Brother ICD Alzheimer's Brother Dementia Brother Cancer Father Heart problem Maternal Grandfather Hypotension Maternal Grandmother Stroke Maternal Grandmother Hypertension Mother Alcohol abuse Paternal Grandfather Cancer Paternal Grandmother Relation Name Status Comments Brother lung issues Brother Alive thyroid issues Father (Age 55) Maternal Grandfather (Age 92) Maternal Grandmother (Age 87) Mother Alive thyroid issues Paternal Grandfather (Age 70s) Paternal Grandmother (Age 50s) Sister Alive thyroid issue Social History Tobacco Use Types Packs/Day Years Used Date Current Every Day Smoker Cigarettes Smokeless Tobacco: Never Used Tobacco Cessation: Ready to Quit: No; Counseling Given: No Comments: Currently smoking 2-3 cigarettes per day Alcohol Use Drinks/Week oz/Week Comments No Sex Assigned at Date Recorded Not on file Last Filed Vital Signs Vital Sign Reading Time Taken Blood Pressure 116/65 03/25/2018 10:01 AM CDT Pulse 85 03/04/2018 3:49 PM CDT Temperature 36.6 C (97.9 F) 09/10/2017 4:12 PM CDT Respiratory Rate 16 03/04/2018 3:49 PM CDT Oxygen Saturation 94% 03/04/2018 3:49 PM CDT Inhaled Oxygen - - Concentration Weight 90.3 kg (199 lb) 03/25/2018 10:01 AM CDT Height 163 cm (5' 4.17") 03/25/2018 10:01 AM CDT Body Mass Index 33.97 03/25/2018 10:01 AM CDT Plan of Treatment Date Type Specialty Care Team Description 03/04/2018 Procedure Pass Pulmonology Health Maintenance Due Date Last Done Comments HEPATITIS C SCREENING 1953 PHYSICAL (COMPREHENSIVE) 1960 EXAM PERTUSSIS VACCINE 1964 HIV SCREENING 1968 TETANUS VACCINE 1970 CERVICAL CANCER SCREENING 1983 BREAST CANCER SCREENING 1993 COLORECTAL CANCER 2003 SCREENING SHINGLES RECOMBINANT 2003 VACCINE (1 of 2) INFLUENZA VACCINE 01/20/2018 Procedures Procedure Name Priority Date/Time Associated Diagnosis Comments 2-D + DOPPLER Routine 03/25/2018 Chronic atrial Results for this ECHOCARDIOGRAM 12:11 PM CDT fibrillation (HCC) procedure are in the DALE on CPAP results section. CT CHEST WO CONTRAST Routine 03/04/2018 Pulmonary nodules Results for this 3:30 PM CDT procedure are in the results section. from Last 3 Months Results * 2-D + DOPPLER ECHOCARDIOGRAM (03/25/2018 12:11 PM) AV peak velocity 1.47 m/s OTHER OUTSIDE LAB Sinus 2.80 2.7 - 3.3 cm OTHER OUT[facility] IVS 0.88 0.6 - 0.9 cm OTHER OUT[facility]IDE LAB LVIDD 4.95 3.8 - 5.2 cm OTHER OUT[facility]IDE LAB LVIDS 3.15 2.2 - 3.5 cm OTHER OUT[facility]IDE LAB PW 1.15 0.6 - 0.9 cm OTHER OUT[facility]IDE LAB TDI e' 0.100 m/s OTHER OUT[facility]IDE LAB LA size 4.30 2.7 - 3.8 cm OTHER OUT[facility]IDE LAB Right Ventricular Mid 2.10 1.9 - 3.5 cm OTHER OUTSIDE LAB Diameter Right Ventricular Basal 3.40 2.5 - 4.1 cm OTHER OUTSIDE LAB Diameter Right Atrial Major 4.08 2.2 - 2.8 cm OTHER [facility] Dimension Right Atrial Area 11.80 <18 cm2 OTHER OUTSIDE LAB BSA 2.02 m2 OTHER [facility] FS 36.36 28 - 44 % OTHER [facility] EF 61.81 % OTHER [facility] LAB Referring Provider Page Peace OTHER OUTSIDE LAB LV mass 182.63 66 - 150 g OTHER OUTSIDE LAB RWT 0.46 <=0.42 OTHER OUTSIDE LAB Cardiology Ultrasound Kelly [facility] OTHER OUTSIDE LAB Machine Left Ventricle Mass Index 90.41 44 - 88 g/m2 OTHER OUTSIDE LAB TV rest pulmonary artery 30 mmHg OTHER OUTSIDE LAB pressure LA volume 56.40 22 - 52 cm3 OTHER OUTSIDE LAB Left Atrium Index 27.92 16 - 34 OTHER OUTSIDE LAB ECHO EF 55 % OTHER OUTSIDE LAB Narrative Performed At OTHER OUTSIDE LAB 1. No regional wall motion abnormalities are seen. Overall LV systolic function appears normal. The estimated left ventricular ejection fraction is 55%. Global longitudinal strain is reported as -15.9%, which is abnormal (less than -17% is considered normal). 2. There is mild concentric left ventricular hypertrophy. 3. The right ventricle is not visualized well. Limited views suggest normal right ventricular size and contractility. 4. Normal atrial chamber dimensions. 5. Mild mitral valve regurgitation and mild tricuspid valve regurgitation are noted by Doppler exam. 6. No pericardial effusion is seen. 7. There is no color flow doppler evidence for intracardiac shunting. Performing Organization Address City/State/Zipcode Phone Number OTHER OUTSIDE LAB * CT CHEST WO CONTRAST (03/04/2018 3:30 PM) Impressions Performed At 1.Stable scattered pulmonary nodules since May 18, 2017, however, these [facility] were not seen on more remote prior studies. Biopsy or follow-up CT chest in 6 months is recommended to assess for stability. 2.Unchanged mild mediastinal lymphadenopathy which remains indeterminate. 3.Mild emphysema. #Follow Approved by Calvin Turner M.D. on 03/04/2018 4:48 PM By my electronic signature, I attest that I have personally reviewed the images for this examination and formulated the interpretations and opinions expressed in this report Finalized by Jah Manzo M.D. on 03/04/2018 4:49 PM. Dictated by Calvin Turner M.D. on 03/04/2018 4:01 PM. Narrative Performed At CT CHEST [facility] Clinical Indication:Female, 62 years old. Pulmonary nodules Technique: Multiple contiguous axial CT images were obtained through the chest without IV contrast. Post processing coronal and sagittal reconstruction images were made from the axial images. IV contrast: None. Comparison: CT chest from September 10, 2017 FINDINGS: Evaluation of the mediastinum and beto, including the vasculature and for lymphadenopathy, is limited without the use of IV contrast. Lower Neck: Unremarkable Axilla, Mediastinum and Beto: No significant change in mildly enlarged paratracheal lymph node measuring 1.5 x 1.0 cm (series 3 image 23), previously 1.4 x 1.0 cm. No definite hilar lymphadenopathy identified on this noncontrast CT exam. No axillary lymphadenopathy. Heart and Great Vessels: The heart is normal in size. At least moderate coronary artery calcification. Airway, Lungs and Pleura: Central airways patent. Mild emphysema. Right basilar scarring. Stable scattered pulmonary nodules (for example series 3 image 34, 39, and 47). Stable subsolid nodule within the right upper lobe (series 3 image 30 ). Reference dominant nodule within the right lung base measures 1.5 cm in diameter (series 3 image 43), previously 1.6 cm. These are stable since May 18, 2017, however, are not seen on more remote prior studies. No new or enlarging pulmonary nodule. No pleural effusion. Upper Abdomen: Geographic areas of hepatic steatosis. Chest Wall and Osseous Structures: Mild thoracic spondylosis. Previous median sternotomy. Procedure Note Interface, Radiant Results - 03/04/2018 4:[address] CHEST Clinical Indication: Female, 62 years old. Pulmonary nodules Technique: Multiple contiguous axial CT images were obtained through the chest without IV contrast. Post processing coronal and sagittal reconstruction images were made from the axial images. IV contrast: None. Comparison: CT chest from September 10, 2017 FINDINGS: Evaluation of the mediastinum and beto, including the vasculature and for lymphadenopathy, is limited without the use of IV contrast. Lower Neck: Unremarkable Axilla, Mediastinum and Beto: No significant change in mildly enlarged paratracheal lymph node measuring 1.5 x 1.0 cm (series 3 image 23), previously 1.4 x 1.0 cm. No definite hilar lymphadenopathy identified on this noncontrast CT exam. No axillary lymphadenopathy. Heart and Great Vessels: The heart is normal in size. At least moderate coronary artery calcification. Airway, Lungs and Pleura: Central airways patent. Mild emphysema. Right basilar scarring. Stable scattered pulmonary nodules (for example series 3 image 34, 39 , and 47). Stable subsolid nodule within the right upper lobe (series 3 image 30 ). Reference dominant nodule within the right lung base measures 1.5 cm in diameter (series 3 image 43), previously 1.6 cm. These are stable since May 18, 2017, however, are not seen on more remote prior studies. No new or enlarging pulmonary nodule. No pleural effusion. Upper Abdomen: Geographic areas of hepatic steatosis. Chest Wall and Osseous Structures: Mild thoracic spondylosis. Previous median sternotomy. IMPRESSION 1. Stable scattered pulmonary nodules since May 18, 2017, however, these were not seen on more remote prior studies. Biopsy or follow-up CT chest in 6 months is recommended to assess for stability. 2. Unchanged mild mediastinal lymphadenopathy which remains indeterminate. 3. Mild emphysema. #Follow Approved by Calvin Turner M.D. on 03/04/2018 4:48 PM By my electronic signature, I attest that I have personally reviewed the images for this examination and formulated the interpretations and opinions expressed in this report Finalized by Jah Manzo M.D. on 03/04/2018 4:49 PM. Dictated by Calvin Turner M.D. on 03/04/2018 4:01 PM. Performing Organization Address City/State/Zipcode Phone Number [facility] RESULTS from Last 3 Months
--- OUTSIDE RECORDS SUMMARY | 2018-04-16 10:30 | XMS REPORT | Encounter Summary ---
Author Author [facility] Organization [facility] Address Unknown Phone Unavailable Care Team Providers Care Wool Buyer Name Role Phone Ami Topete MD PCP Reason for Visit * Reason Comments Cardiac Clearance Encounter Details Date Type Department Care Team Description 03/30/2018 Telephone Cardiovascular Medicine Yanna Roe RN Cardiac Clearance [facility] [place] [id number] [place] [address] Social History Tobacco Use Types Packs/Day Years [...] encounter Miscellaneous Notes * Telephone Encounter - Yanna Roe RN - 03/30/2018 9:56 AM CDT Formatting of this note may be different from the original. Echo completed 03/25 and reviewed with INSTALLER HELPER. Patient has EF 55% w/o regional WMA. Reviewed with Dr. Bryant via phone and received verbal order that patient is at low risk for cardiovascular perioperative complications for her scheduled direct laryngoscopy with epiglottis biopsy on 04/[address] Bliss. Notified patient and faxed requested information along with this note to Eliseo. Anticoagulation is being managed by pts PCP. INSTALLER HELPER- patient Received: Today Message Contents Mary Mcfarland LPN P [facility] Nurse Ep BRANDON on triage line from Eliseo with Dr. Francis Bliss office # [phone]. Said that she faxed request for CC on some of INSTALLER HELPER patients. Did we get the fax, if so, fax CC to # [phone]. She did not leave patients names. * Telephone Encounter - Yanna Roe RN - 03/30/2018 9:56 AM CDT ----- Message from Mary Mcfarland LPN sent at 03/30/2018 9:42 AM CDT ----- Regarding: INSTALLER HELPER- CC and Echo results VM from patient on triage line. She is to have surgery this and needs CC and Echo results. in this encounter Plan of Treatment Date Type Specialty Care Team Description 03/04/2018 Procedure Pass Pulmonology as of this encounter Visit Diagnoses Not on filein this encounter
--- OUTSIDE RECORDS SUMMARY | 2018-04-16 10:30 | XMS REPORT | Encounter Summary ---
Author Author [facility] Organization [facility] Address Unknown Phone Unavailable Care Team Providers Care Bun Panner Name Role Phone Ami Topete MD PCP Reason for Referral * Test Status Reason Specialty Diagnoses / Referred By Referred To Procedures Contact Contact No Auth Needed Cardiology Diagnoses Odell De Oliveira, Cvm Ovpk Echo/Pv Chronic atrial [facility] [place] fibrillation [address] [place] [address] [place], [place] rocedures [address] 2-D + DOPPLER Phone: Phone: ECHOCARDIOGRAM [phone] [place] [facility] Fax: R-T 2D [phone] W/WOM-MODE COMPL SPEC&COLR D * Test Status Reason Specialty Diagnoses / Referred By Referred To Procedures Contact Contact No Auth Needed Cardiology Diagnoses Odell De Oliveira, Cvm Ovpk Echo/Pv Chronic atrial [facility] [place] fibrillation [address] [place] [address] [place], [place] rocedures [phone] 2-D + DOPPLER Phone: Phone: ECHOCARDIOGRAM [phone] [place] [facility] Fax: R-T 2D [phone] W/WOM-MODE COMPL SPEC&COLR D Reason for Visit * Test Status Reason Specialty Diagnoses / Referred By Referred To Procedures Contact Contact No Auth Needed Cardiology Diagnoses Odell De Oliveira M, Cvm Ovpk Echo/Pv Chronic atrial MD [facility] [place] fibrillation [address] [address] [place] [address] [place], [place] rocedures [phone] 2-D + DOPPLER Phone: Phone: ECHOCARDIOGRAM [phone] [place] [facility] Fax: R-T 2D [phone] W/WOM-MODE COMPL SPEC&COLR D Encounter Details Date Type Department Care Team Description 03/25/2018 [facility] Cardiovascular Medicine Taylor Bryant MD Encounter [facility] [place] [address] [place] [address] [place] [address] [place] [address] [phone] Social History Tobacco Use Types Packs/Day Years Used Date Current Every Day Smoker Cigarettes Smokeless Tobacco: Never Used Comments: Currently smoking 2-3 cigarettes per day Alcohol Use Drinks/Week oz/Week Comments No Sex Assigned at Date Recorded Not on file as of this encounter Last Filed Vital Signs Vital Sign Reading Time Taken Blood Pressure 116/65 03/25/2018 10:01 AM CDT Pulse - - Temperature - - Respiratory Rate - - Oxygen Saturation - - Inhaled Oxygen - - Concentration Weight 90.3 kg (199 lb) 03/25/2018 10:01 AM CDT Height 163 cm (5' 4.17") 03/25/2018 10:01 AM CDT Body Mass Index 33.97 03/25/2018 10:01 AM CDT in this encounter Functional Status Functional Status Response [...] impairment: No 06/09/2017 as of this encounter Medications at Time of Discharge Medication Sig. Disp. Refills Start Date End Date albuterol (PROAIR HFA) 90 Inhale 1 puff by mouth mcg/actuation inhaler into the lungs daily. Shake well before use. albuterol-ipratropium Inhale 1 vial by 360 mL 11 06/19/2017 (DUO-NEB, DUO-VENT) 0.5 nebulizer as directed mg-3 mg(2.5 mg base)/3 mL four times daily. nebulizer solution cetirizine (ZYRTEC) 10 mg Take 10 mg by mouth every tablet morning. citalopram (CELEXA) 20 mg Take 20 mg by mouth at tablet bedtime daily. diltiazem CD (CARDIZEM Take one capsule by mouth 90 capsule 3 2017 CD) 180 mg capsule daily. diphenhydrAMINE Take 50 mg by mouth at (BENADRYL) 50 mg capsule bedtime daily. fluticasone (FLONASE) 50 Apply 2 sprays to each 16 g 11 06/19/2017 mcg/actuation nasal spray nostril as directed daily. Shake bottle gently before using. fluticasone-vilanterol(+) Inhale one puff by mouth 1 Inhaler 11 2017 (BREO ELLIPTA) 100-25 mcg into the lungs daily. inhalation disk levalbuterol(+) (XOPENEX) Inhale 1.25 mg solution 1.25 mg/3 mL nebulizer by nebulizer as directed solution three times daily as needed for Wheezing. levothyroxine (SYNTHROID) Take 50 mcg by mouth 50 mcg tablet daily 30 minutes before breakfast. tiotropium bromide Inhale 2 puffs by mouth (SPIRIVA RESPIMAT) 2.5 into the lungs as Needed. mcg/actuation inhaler warfarin (COUMADIN) 2 mg Take 1 tablet by mouth 45 tablet 0 2017 tablet every Thursday. Evening warfarin (COUMADIN) 6 mg Take 1 tablet by mouth 90 tablet 0 2017 tablet six times weekly. Everyday of the week except for Saturdays. Takes in evening. as of this encounter Plan of Treatment Date Type Specialty Care Team Description 03/04/2018 Procedure Pass Pulmonology as of this encounter Procedures Procedure Name Priority Date/Time Associated Diagnosis Comments 2-D + DOPPLER Routine 03/25/2018 Chronic atrial Results for this ECHOCARDIOGRAM 12:11 PM CDT fibrillation (HCC) procedure are in the [place] on CPAP results section. in this encounter Results * 2-D + DOPPLER ECHOCARDIOGRAM (03/25/2018 [...] Address City/State/Zipcode Phone Number OTHER OUTSIDE LAB in this encounter Visit Diagnoses Diagnosis Chronic atrial fibrillation (HCC) Atrial fibrillation [place] on CPAP Obstructive sleep apnea (adult) (pediatric)
--- OUTSIDE RECORDS SUMMARY | 2018-04-16 10:31 | XMS REPORT | Encounter Summary ---
Author Author [facility] Organization [facility] Address Unknown Phone Unavailable Care Team Providers Care Acrobatic Dancer Name Role Phone Ami Topete MD PCP Reason for Visit * Reason Comments Anticoagulation PCP to manage warfarin Encounter Details Date Type Department Care Team Description 03/04/2018 Telephone Cardiovascular Medicine Yanna Roe RN Anticoagulation (PCP to [place] [address] manage warfarin) [address] [place] [address] Social History Tobacco Use Types Packs/Day Years [...] encounter Miscellaneous Notes * Telephone Encounter - Yanan Roe RN - 03/04/2018 1:53 PM CDT Returned call to [facility] and spoke with TOMI Ambriz Their office will continue to manage pts Warfarin. I have asked that they send refills for pt. * Telephone Encounter - Yanna Roe RN - 03/04/2018 1:52 PM CDT ----- Message from Jelly Lipscomb sent at 03/04/2018 12:41 PM CDT ----- Regarding: CONCRETE WORKER-Returning our call Rhonda with [facility] calling back. Call back is [phone] in this encounter Plan of Treatment Date Type Specialty Care Team Description 03/04/2018 Procedure Pass Pulmonology as of this encounter Visit Diagnoses Not on filein this encounter
--- OUTSIDE RECORDS SUMMARY | 2018-04-16 10:31 | XMS REPORT | Encounter Summary ---
Author Author [facility] Organization [facility] Address Unknown Phone Unavailable Care Team Providers Care Body Engineer Name Role Phone Page Peace PLASTERING SUPERVISOR PCP Unavailable Reason for Visit * Reason Comments Medication Refill Encounter Details Date Type Department Care Team Description 02/09/2018 Telephone Cardiovascular Medicine Brianne Bermudez, dock operator Refill [address] [place] [address] Social History Tobacco Use Types Packs/Day Years [...] impairment: No 06/09/2017 as of this encounter Plan of Treatment Date Type Specialty Care Team Description 03/04/2018 Procedure Pass Pulmonology as of this encounter Visit Diagnoses Not on filein this encounter
--- OUTSIDE RECORDS SUMMARY | 2018-04-16 10:31 | XMS REPORT | Encounter Summary ---
Author Author [facility] Organization [facility] Address Unknown Phone Unavailable Care Team Providers Care Crisis Therapist Name Role Phone Ami Topete MD PCP Reason for Referral * Radiology Services Status Reason Specialty Diagnoses / Referred By Referred To Procedures Contact Contact Closed Radiology Diagnoses Ashley Wolff Mob [address] Pulmonary [address] nodules [address] FLO[address] rocedures [place] [address] [place], [place] [address] [place] [address] Phone: * Radiology Services Status Reason Specialty Diagnoses / Referred By Referred To Procedures Contact Contact Closed Radiology Diagnoses Ashley [address] Pulmonary [address] nodules [address] FLO[address] rocedures [place] [address] [place], [place] [address] [place] [address] Phone: Reason for Visit * Radiology Services Status Reason Specialty Diagnoses / Referred By Referred To Procedures Contact Contact Closed Radiology Diagnoses Ashley Wolff [address] Pulmonary [address] nodules [address] FLO[address] rocedures [place] [address] [place], [place] [address] [place] [address] Phone: Encounter Details Date Type Department Care Team Description 03/04/2018 Hospital [facility] Ashley Wolff MD Encounter Hospital Radiology [address] [facility] [address] [place] [address] [address]ND FLO[address] [phone] [place] [address] [phone] Social History Tobacco Use Types Packs/Day Years [...] Procedure Name Priority Date/Time Associated Diagnosis Comments CT CHEST WO CONTRAST Routine 03/04/2018 Pulmonary nodules Results for this 3:30 PM CDT procedure are in the results section. in this encounter Results * CT CHEST WO CONTRAST (03/04/2018 3:30 [...] 2017 FINDINGS: Evaluation of the mediastinum and kori, including the vasculature and for lymphadenopathy, is limited without the use of IV contrast. Lower Neck: Unremarkable Axilla, Mediastinum and Kori: No significant change in mildly enlarged paratracheal [...] 2017 FINDINGS: Evaluation of the mediastinum and kori, including the vasculature and for lymphadenopathy, is limited without the use of IV contrast. Lower Neck: Unremarkable Axilla, Mediastinum and Kori: No significant change in mildly enlarged paratracheal [...] Address City/State/Zipcode Phone Number [facility] RESULTS in this encounter Visit Diagnoses Diagnosis Pulmonary nodules Other nonspecific abnormal finding of lung field
--- OUTSIDE RECORDS SUMMARY | 2018-04-16 10:31 | XMS REPORT | Encounter Summary ---
Author Author [facility] Organization [facility] Address Unknown Phone Unavailable Care Team Providers Care Electronic Publisher Name Role Phone Page Peace BULB BRANDER PCP Unavailable Ami Topete MD PCP Encounter Details Date Type Department Care Team Description 09/10/2017 Procedure Pass [facility] Radiology [address] [facility] [address]ND FLOOR [place], [place] [id number] Social History Tobacco Use Types Packs/Day Years [...]
--- OUTSIDE RECORDS SUMMARY | 2018-04-16 10:31 | XMS REPORT | Encounter Summary ---
Author Author [facility] Organization [facility] Address Unknown Phone Unavailable Care Team Providers Care Parts Administrator Name Role Phone Ami Topete MD PCP Reason for Referral * (Routine) Status Reason Specialty Diagnoses / Referred By Referred To Procedures Contact Contact New Request Procedures Taylor Bryant MD CARDIOLOGY [address] [place] [address] * Status Reason Specialty Diagnoses / Referred By Referred To Procedures Contact Contact New Request Procedures Odell De Oliveira, REQUEST FOR CARDIOLOGY [address] [place] [address] Reason for Visit * Reason Comments Atrial fibrillation Previously saw [facility] * Status Reason Specialty Diagnoses / Referred By Referred To Procedures Contact Contact New Request Procedures Odell De Oliveira, REQUEST FOR CARDIOLOGY [address] [place] [address] Encounter Details Date Type Department Care Team Description 03/04/2018 Office Visit Cardiovascular Medicine Odell De Oliveira MD Atrial fibrillation [place] [address] (Previously saw [facility]) [address] [place] [address] [place] [address] [phone] Taylor Ponce MD [address] [place] [address] [phone] Social History Tobacco Use Types Packs/Day Years Used Date Current Every Day Smoker Cigarettes Smokeless Tobacco: Never Used Comments: Currently smoking 2-3 cigarettes per day Alcohol Use Drinks/Week oz/Week Comments No Sex Assigned at Date Recorded Not on file as of this encounter Last Filed Vital Signs Vital Sign Reading Time Taken Blood Pressure 110/62 03/04/2018 9:51 AM CDT Pulse 82 03/04/2018 9:51 AM CDT Temperature - - Respiratory Rate - - Oxygen Saturation - - Inhaled Oxygen - - Concentration Weight 90.3 kg (199 lb) 03/04/2018 9:51 AM CDT Height 162.6 cm (5' 4") 03/04/2018 9:51 AM CDT Body Mass Index 34.16 03/04/2018 9:51 AM CDT in this encounter Functional Status [...] impairment: No 06/09/2017 as of this encounter Instructions * Patient Instructions - Yanna Roe RN - 03/04/2018 10:15 AM CDT Follow up in 1 year Refills sent to pharmacy To schedule an appointment call [phone]. In order to provide you the best care possible we ask that you follow up as below: For non-urgent questions please contact us through your [employer] account. For all medication refills please contact your pharmacy or send a request through [employer]. For all questions that may need to be addressed urgently please call the nursing triage voicemail at [phone] Thursday - Thursday 8-5 only. Please leave a detailed message with your name, date of , and reason for your call. Please allow ~ 10 business days for the results of any testing to be reviewed. Please call our office if you have not heard from a nurse within this time frame. in this encounter Progress Notes * Taylor Bryant MD - 03/04/2018 10:15 AM CDT Formatting of this note may be different from the original. Date of Service: 03/04/2018 Laure Rodrigues is a 62 y.o. female. HPI Laure Rodrigues presents to my office today in electrophysiology follow-up for a history of atrial arrhythmias. As you know, she is a pleasant 62-year-old female with a past medical history of long-standing tobacco abuse with central lobular emphysema, history of ASD status post surgical repair, hypertension, hypothyroidism, O2 dependence, obstructive sleep apnea, and paroxysmal atrial fibrillation who was originally seen by my colleague Dr. Sergio De Oliveira approximately 6 months ago. At that time, Mrs. Rodrigues was initiating care in our office. She was questioning whether she actually had atrial fibrillation and remained on anticoagulation. Dr. De Oliveira was concerned about her true A. fib burden. He discussed the option of implantable loop recorder placement. Plans were made to see him back in follow-up in 6 months. Mrs. Rodrigues is in my office today wanting to transfer her care. I have previously cared for her now [id number]. Patient tells me that she has had atrial fibrillation the last 3 years. It was initially diagnosed in the setting of acute COPD exacerbation. She has been managed with rate control only utilizing Cardizem. Laure tells me her A. fib episodes are fairly rare. She believes that she is having spells about once a month lasting just minutes at a time. When she has her A. fib, she complains of a fluttery sensation and some increased shortness of breath. She is often forgetful when she is in A. fib. Her sister feels that the A. fib episodes occur when Laure is having difficulty with her breathing. Patient is on chronic home O2 at 3 L by nasal cannula. Occasionally , she will increase her oxygen flow rate with exertion. The patient continues to tolerate anticoagulation with warfarin. Vitals: 03/04/18 0951 BP: 110/62 Pulse: 82 Weight: 90.3 kg (199 lb) Height: 1.626 m (5' 4") Body mass index is 34.16 kg/m. Past Medical History Patient Active Problem List Diagnosis Date Noted Lymphadenopathy 07/02/2017 Added automatically from request for surgery [id number] Pulmonary nodules 06/18/2017 - CT Chest 04/2017 - multiple bilateral nodules, largest 1.6 cm - PET 06/2017 - low level metabolic activity of bilateral pulmonary nodules, hypermetabolic mediastinal and bilateral hilar lymphadenopathy - EBUS FNA 07/10/2017: polymorphous lymphocytes, no carcinoma - CT Chest 09/10/2017: stable scattered bilateral pulmonary nodules since 2016, essentially unchanged mediastinal and hilar adenopathy, which remains indeterminate; small focal groundglass opacity within the RUL, likely atelectasis or scarring Atrial fibrillation (HCC) 06/18/2017 - CHADSVasc score 2 - On warfarin for stroke prevention Centrilobular emphysema (HCC) 06/18/2017 GOLD Staging: D4 mMRC: 2-3 GOLD classification of airflow obstruction: 4 Number exacerbations in past year: 4 PFT (06/18/2017) FVC 1.42L (44% pred) FEV1 0.71L (29% pred) FEV1/FVC 50% Medication Regimen Breo once daily Spiriva 2 puffs once daily Azithromycin 250 mg daily Albuterol inhaler every 4 hours as needed Duonebs every 4 hours as needed Vaccinations Influenza - Up to date Pneumococcal - Up to date Prevnar - Due at age 63 Oxygen [employer], 3-4L baseline Pulm Rehab Discussed with patient, but [place] is [place] be difficult to her to manage Smoking Active 2-3 cigarette smoker, previously much more Tobacco abuse 06/18/2017 Chronic hypoxemic respiratory failure (HCC) 06/18/2017 - Likely hypercarbic respiratory failure, as well, as she has a Bicarb of 30 on her chemistry Hypothyroidism 06/18/2017 [place] on CPAP 06/18/2017 - Compliant with CPAP Post-nasal drip 06/18/2017 COPD exacerbation (HCC) 06/06/2017 ROS Physical Exam General Appearance: well developed, well nourished in no acute distress Skin: warm, moist, no ulcers HEENT: extraocular movements intact, oropharynx clear Neck Veins: neck veins are flat, neck veins are not distended Carotid Arteries: normal carotid upstroke bilaterally, no bruits Chest Inspection: chest is normal in appearance Auscultation/Percussion: decreased breath sounds throughout, no rales, rhonchi, or wheezing Cardiac Rhythm: regular rhythm and normal rate Cardiac Auscultation: Normal S1 & S2, no S3 or S4, no rub Murmurs: no cardiac murmurs Extremities: no lower extremity edema; 1+ symmetric distal pulses Abdominal Exam: soft, non-tender, no masses, bowel sounds normal Liver & Spleen: no organomegaly Neurologic Exam: neurological assessment grossly intact Cardiovascular Studies 12 lead EKG: Sinus rhythm, ventricular rate 82 bpm, QTc 500 msec, QRSd 88 msec Problems Addressed Today Encounter Diagnoses Name Primary? Atrial fibrillation, unspecified type (HCC) Yes Centrilobular emphysema (HCC) Tobacco abuse Assessment and Plan Atrial fibrillation (HCC) Mrs. Rodrigues is describing atrial fibrillation episodes [...] before initiation of flecainide. Centrilobular emphysema (HCC) She remains on chronic O2 at 3 L by nasal cannula. Occasionally when she exerting herself, she increases the O2 flow. Mrs. Rodrigues feels that her pulmonary status is stable. Tobacco abuse Unfortunately, Mrs. Rodrigues continues to smoke. She is not interested in quitting tobacco use at this time. She understands the deleterious effects of smoking. I strongly urged her to quit smoking. Her QT interval is a little prolonged. I asked her to avoid any QT prolonging medications. I have asked the patient to see me back in follow up in one year. Current Medications (including today's revisions) albuterol (PROAIR HFA) 90 mcg/actuation inhaler Inhale 1 puff by mouth into the lungs daily. Shake well before use. albuterol-ipratropium (DUO-NEB, DUO-VENT) 0.5 mg-3 mg(2.5 mg base)/3 mL nebulizer solution Inhale 1 vial by nebulizer as directed four times daily. ( Patient taking differently: Inhale 3 mL solution by nebulizer as directed as Needed.) cetirizine (ZYRTEC) 10 mg tablet Take 10 mg by mouth every morning. citalopram (CELEXA) 20 mg tablet Take 20 mg by mouth at bedtime daily. diltiazem CD (CARDIZEM CD) 180 mg capsule Take one capsule by mouth daily. diphenhydrAMINE (BENADRYL) 50 mg capsule Take 50 mg by mouth at bedtime daily. fluticasone (FLONASE) 50 mcg/actuation nasal spray Apply 2 sprays to each nostril as directed daily. Shake bottle gently before using. fluticasone-vilanterol(+) (BREO ELLIPTA) 100-25 mcg inhalation disk Inhale one puff by mouth into the lungs daily. levalbuterol(+) (XOPENEX) 1.25 mg/3 mL nebulizer solution Inhale 1.25 mg solution by nebulizer as directed three times daily as needed for Wheezing. levothyroxine (SYNTHROID) 50 mcg tablet Take 50 mcg by mouth daily 30 minutes before breakfast. tiotropium bromide (SPIRIVA RESPIMAT) 2.5 mcg/actuation inhaler Inhale 2 puffs by mouth into the lungs as Needed. warfarin (COUMADIN) 2 mg tablet Take 1 tablet by mouth every Thursday. Evening warfarin (COUMADIN) 6 mg tablet Take 1 tablet by mouth six times weekly. Everyday of the week except for Saturdays. Takes in evening. in this encounter Miscellaneous Notes * Assessment & Plan Note - Taylor Bryant MD - 03/04/2018 8:48 PM CDT Associated Problem(s): Tobacco abuse Unfortunately, Mrs. Rodrigues continues to smoke. She is not interested in quitting tobacco use at this time. She understands the deleterious effects of smoking. I strongly urged her to quit smoking. * Assessment & Plan Note - Taylor Bryant MD - 03/04/2018 8:47 PM CDT Associated Problem(s): Centrilobular emphysema (HCC) She remains on chronic O2 at 3 L by nasal cannula. Occasionally when she exerting herself, she increases the O2 flow. Mrs. Rodrigues feels that her pulmonary status is stable. * Assessment & Plan Note - Taylor Bryant MD - 03/04/2018 8:45 PM CDT Associated Problem(s): Atrial fibrillation (HCC) Mrs. Rodrigues is describing atrial fibrillation episodes [...] thallium stress test before initiation of flecainide. in this encounter Plan of Treatment Date Type Specialty Care Team Description 03/04/2018 Procedure Pass Pulmonology Name Priority Associated Diagnoses Order Schedule ECG 12-LEAD Routine Atrial fibrillation, Ordered: 03/04/2018 unspecified type (HCC) as of this encounter Visit Diagnoses Diagnosis Atrial fibrillation, unspecified type (HCC) - Primary Centrilobular emphysema (HCC) Other emphysema Tobacco abuse Tobacco use disorder
--- OUTSIDE RECORDS SUMMARY | 2018-04-16 10:31 | XMS REPORT | Encounter Summary ---
Author Author [facility] Organization [facility] Address Unknown Phone Unavailable Care Team Providers Care Promotional Marketing Analyst Name Role Phone Ami Topete MD PCP Reason for Visit * Reason Comments Error Encounter Details Date Type Department Care Team Description 03/17/2018 Telephone Cardiovascular Medicine Sarita Moeller RN [facility] [place] [address] Social History Tobacco Use Types Packs/Day Years [...] Encounter - Sarita Moeller RN - 03/17/2018 2:21 PM CDT Entered in error. Duplicate documentation. in this encounter Plan of Treatment Date Type Specialty Care Team Description 03/04/2018 Procedure Pass Pulmonology as of this encounter Visit Diagnoses Not on filein this encounter
--- OUTSIDE RECORDS SUMMARY | 2018-04-16 10:31 | XMS REPORT | Encounter Summary ---
Author Author [facility] Organization [facility] Address Unknown Phone Unavailable Care Team Providers Care House Shorer Name Role Phone Ami Topete MD PCP Reason for Referral * Radiology Services (Routine) Status Reason Specialty Diagnoses / Referred By Referred To Procedures Contact Contact New Request Radiology Diagnoses Ashley Wolff, Pulmonary MD nodules [address] CHEST WO [place], [place] CONTRAST [address] * Consult, Test & Treat (Routine) Status Reason Specialty Diagnoses / Referred By Referred To Procedures Contact Contact New Request Specialty Diagnoses Ashley Wolff, Pulmonary Function Services Chronic MD [facility] Required obstructive [address] disease, [place] [address] [place], [place] [address] type (HCC) [id number] Phone: Scheduling Instructions In 6 months with follow up Reason for Visit * Reason Comments Breathing Problem Encounter Details Date Type Department Care Team Description 03/04/2018 Office Visit [facility] Ashley Wolff MD Chronic obstructive Physicians - Internal [address] pulmonary disease, Medicine [address]26 unspecified COPD type [place] [address] (HCC) (Primary Dx); [facility] [phone] Pulmonary nodules; [address] MARVIN on CPAP; [place], [place] Centrilobular emphysema [id number] ([facility]); [phone] Chronic hypoxemic respiratory failure ([facility]) Social History Tobacco Use Types Packs/Day Years Used Date Current Every Day Smoker Cigarettes Smokeless Tobacco: Never Used Comments: Currently smoking 2-3 cigarettes per day Alcohol Use Drinks/Week oz/Week Comments No Sex Assigned at Date Recorded Not on file as of this encounter Last Filed Vital Signs Vital Sign Reading Time Taken Blood Pressure 96/57 03/04/2018 3:49 PM CDT Pulse 85 03/04/2018 3:49 PM CDT Temperature - - Respiratory Rate 16 03/04/2018 3:49 PM CDT Oxygen Saturation 94% 03/04/2018 3:49 PM CDT Inhaled Oxygen - - Concentration Weight 90.3 kg (199 lb) 03/04/2018 3:49 PM CDT Height 162.6 cm (5' 4") 03/04/2018 3:49 PM CDT Body Mass Index 34.16 03/04/2018 3:49 PM CDT in this encounter Functional Status Functional [...] this encounter Instructions * Patient Instructions - Britt Maya RN - 03/04/2018 4:00 PM CDT Stop taking azithromycin My nurse is Britt Maya RN. She can be reached at [phone]. Please contact my nurse with any signs and symptoms of worsening productive cough with thick secretions, blood in sputum, chest tightness/pain, shortness of breath, fever, chills, night sweats, or any questions or concerns. For refills on medications, please have your pharmacy fax a refill authorization request form to our office at [phone]. Please allow at least 3 business days for refill requests. For urgent issues after business hours/weekends/holidays call [phone] and request for the product management internship to be paged. in this encounter Progress Notes * Ashley Wolff MD - 03/04/2018 4:00 PM CDT Formatting of this note may be different from the original. Date of Service: 03/04/2018 Subjective: Laure Rodrigues is a 62 y.o. female. History of Present Illness The patient presents for follow-up of her COPD and pulmonary nodules. She reports doing very well since her last visit here. She is not needed steroids since her last visit. She has used her rescue inhaler twice in the past month. She is using Spiriva and Brio as prescribed. She has no significant side effects. She is wearing 3 L of oxygen all the time. She walk about a half a block without stopping. She recently saw the interrelated special education teacher today. She did have an EKG today. She has noticed that she is little more forgetful when her oxygen is low. She denies any significant coughing. She is wearing her CPAP regularly without any difficulty. She has not had any exacerbations since her hospitalization in May 2017. She did see an ENT due to her ear feeling clogged. She had a CT and flonase and zyrtec prn Review of Systems HENT: Positive for ear pain and sore throat. All other systems reviewed and are negative. Objective: albuterol (PROAIR HFA) 90 mcg/actuation inhaler Inhale [...] week except for Saturdays. Takes in evening. Vitals: 03/04/18 1549 BP: 96/57 Pulse: 85 Resp: 16 SpO2: 94% Weight: 90.3 kg (199 lb) Height: 162.6 cm (64") Body mass index is 34.16 kg/m. Physical Exam Constitutional: She is oriented to person, place, and time. She appears well- developed and well-nourished. No distress. Cardiovascular: Normal rate and regular rhythm. Pulmonary/Chest: Effort normal and breath sounds normal. No respiratory distress. She has no wheezes. She has no rales. Abdominal: Soft. She exhibits no distension. There is no tenderness. Musculoskeletal: She exhibits no edema. Lymphadenopathy: She has no cervical adenopathy. Neurological: She is alert and oriented to person, place, and time. Skin: Skin is warm and dry. She is not diaphoretic. Psychiatric: She has a normal mood and affect. Her behavior is normal. Judgment and thought content normal. ----- CT Chest 03/04/2018 1. Stable scattered pulmonary nodules since May 18, 2017, however, these were not seen on more remote prior studies. Biopsy or follow-up CT chest in 6 months is recommended to assess for stability. 2. Unchanged mild mediastinal lymphadenopathy which remains indeterminate. 3. Mild emphysema Assessment and Plan: Problem Pulmonary Nodules - CT Chest 04/2017 - multiple bilateral [...] CT Chest 03/04/2018: stable from previous (08/2017) Centrilobular Emphysema (Hcc) GOLD Staging: D4 mMRC: 2-3 GOLD classification [...] Active 2-3 cigarette smoker, previously much more Chronic Hypoxemic Respiratory Failure (Hcc) - Likely hypercarbic respiratory failure, as well, as she has a Bicarb of 30 on her chemistry [place] On Cpap - Compliant with CPAP Pulmonary nodules Assessment/Plan: - Repeat CT Chest in 6 months to ensure stability MARVIN on CPAP Assessment/Plan: - Continue excellent compliance Centrilobular emphysema (HCC) Assessment/Plan: - Continue current inhaler regimen with LAMA/LABA/ICS. Considering her prolonged QTc today at her cardiology clinic appointment and her lack of exacerbations over the past 9 months, we will discontinue azithromycin at this time as risk seems higher than benefit. - Complete tobacco cessation is recommended - Continue baseline O2 - Encouraged her to have an influenza vaccination prior to the end of March Chronic hypoxemic respiratory failure (HCC) Assessment/Plan: - Continue O2 (3L) and CPAP Return to clinic in [address] chest. Ashley Wolff MD Pulmonary/Critical Care in this encounter Miscellaneous Notes * Assessment & Plan Note - Ashley Wolff MD - 03/06/2018 4:34 PM CDT Associated Problem(s): Chronic hypoxemic respiratory failure (HCC) Assessment/Plan: - Continue O2 (3L) and CPAP * Assessment & Plan Note - Ashley Wolff MD - 03/06/2018 4:32 PM CDT Associated Problem(s): Centrilobular emphysema (HCC) Assessment/Plan: - Continue current inhaler regimen with LAMA/LABA/ICS. Considering her prolonged QTc today at her cardiology clinic appointment and her lack of exacerbations over the past 9 months, we will discontinue azithromycin at this time as risk seems higher than benefit. - Complete tobacco cessation is recommended - Continue baseline O2 - Encouraged her to have an influenza vaccination prior to the end of March * Assessment & Plan Note - Ashley Wolff MD - 03/06/2018 4:31 PM CDT Associated Problem(s): MARVIN on CPAP Assessment/Plan: - Continue excellent compliance * Assessment & Plan Note - Ashley Wolff MD - 03/06/2018 4:31 PM CDT Associated Problem(s): Pulmonary nodules Assessment/Plan: - Repeat CT Chest in 6 months to ensure stability in this encounter Plan of Treatment Date Type Specialty Care Team Description 03/04/2018 Procedure Pass Pulmonology Name Priority Associated Diagnoses Order Schedule CT CHEST WO CONTRAST Routine Pulmonary nodules Expected: 03/04/2019 (Approximate), Expires: 09/02/2019 Name Priority Associated Diagnoses Order Schedule AMB REFERRAL TO PULMONARY FUNCTION LAB Routine Chronic obstructive Ordered: 03/04/2018 pulmonary disease, unspecified COPD type (HCC) as of this encounter Visit Diagnoses Diagnosis Chronic obstructive pulmonary disease, unspecified COPD type (HCC) - Primary Pulmonary nodules Other nonspecific abnormal finding of lung field MARVIN on CPAP Obstructive sleep apnea (adult) (pediatric) Centrilobular emphysema (HCC) Other emphysema Chronic hypoxemic respiratory failure (HCC) Chronic respiratory failure
--- OUTSIDE RECORDS SUMMARY | 2018-04-16 10:31 | XMS REPORT | Encounter Summary ---
Author Author [facility] Organization [facility] Address Unknown Phone Unavailable Care Team Providers Care Emergency Veterinarian Name Role Phone Ami Topete MD PCP Reason for Visit * Reason Comments Appointment Encounter Details Date Type Department Care Team Description 03/10/2018 Telephone [facility] Ashley Wolff MD Appointment Physicians - Internal [address] [facility] Medicine [place] [address] [place] [address] [facility] [phone] [address] [facility] [place] [address] Social History Tobacco Use Types Packs/Day Years [...] encounter Miscellaneous Notes * Telephone Encounter - Britt Maya RN - 03/15/2018 9:37 AM CDT Received via Routing Comment from Lizette: Done. (Routing comment) Britt Maya RN * Telephone Encounter - Britt Maya RN - 03/10/2018 11:22 AM CDT Routing to [facility] to schedule PFT's, CT chest and follow up appointment for 2018. Britt Maya RN * Telephone Encounter - Britt Maya RN - 03/10/2018 11:22 AM CDT ----- Message from Ashley Wolff MD sent at 03/04/2018 4:54 PM CDT ----- Can we change follow up PFTs, CT chest, and appointment for 6 months? Thanks, LT in this encounter Plan of Treatment Date Type Specialty Care Team Description 03/04/2018 Procedure Pass Pulmonology as of this encounter Visit Diagnoses Not on filein this encounter
--- OUTSIDE RECORDS SUMMARY | 2018-04-16 10:32 | XMS REPORT | Continuity of Care Document ---
Author Author [facility] Organization [facility] Address Unknown Phone Unavailable Allergies Active Description Code Type Severity Reaction Onset Reported/Identified Relationship to Patient Clinical Status Yes No Known Drug Allergies [id number] Drug Allergy Unknown N/A 10/18/2015 Yes codeine [id number] Drug Allergy Mild GI UPSET 04/01/2018 Medications There is no data. Problems Date Dx Coded Attending Type Code Diagnosis Diagnosed By 10/19/2015 SUSSY PERES DO, Ot E66.9 OBESITY, UNSPECIFIED 10/19/2015 SUSSY PERES DO Ot F17.210 NICOTINE DEPENDENCE, CIGARETTES, UNCOMPL 10/19/2015 SUSSY PERES DO Ot G47.33 OBSTRUCTIVE SLEEP APNEA (ADULT) (PEDIATR 10/19/2015 SUSSY PERES DO Ot I48.91 UNSPECIFIED ATRIAL FIBRILLATION 10/19/2015 SUSSY PERES DO Ot J44.1 CHRONIC OBSTRUCTIVE PULMONARY DISEASE W 10/19/2015 SUSSY PERES DO Ot J96.20 ACUTE AND CHR RESP FAILURE, UNSP W HYPOX 10/19/2015 SUSSY PERES DO Ot Z68.34 BODY MASS INDEX (BMI) 34.0-34.9, ADULT 10/19/2015 SUSSY PERES DO Ot Z99.81 DEPENDENCE ON SUPPLEMENTAL OXYGEN 10/21/2015 SUSSY PERES DO Ot E11.9 TYPE 2 DIABETES MELLITUS WITHOUT COMPLIC 10/21/2015 SUSSY PERES DO Ot E66.9 OBESITY, UNSPECIFIED 10/21/2015 SUSSY PERES DO Ot E78.0 PURE HYPERCHOLESTEROLEMIA 10/21/2015 SUSSY PERES DO Ot F17.210 NICOTINE DEPENDENCE, CIGARETTES, UNCOMPL 10/21/2015 SUSSY PERES DO Ot G47.33 OBSTRUCTIVE SLEEP APNEA (ADULT) (PEDIATR 10/21/2015 SUSSY PERES DO Ot I10 ESSENTIAL (PRIMARY) HYPERTENSION 10/21/2015 SUSSY PERES DO Ot I27.2 OTHER SECONDARY PULMONARY HYPERTENSION 10/21/2015 LARISA WILLSON SUSSY Ot I48.91 UNSPECIFIED ATRIAL FIBRILLATION 10/21/2015 PERESSUSSY CHEN DO Ot J44.1 CHRONIC OBSTRUCTIVE PULMONARY DISEASE W 10/21/2015 SUSSY PERES DO Ot J96.20 ACUTE AND CHR RESP FAILURE, UNSP W HYPOX 10/21/2015 LARISA WILLSONSUSSY Ot Z68.34 BODY MASS INDEX (BMI) 34.0-34.9, ADULT 10/21/2015 PERESSUSSY CHEN DO Ot Z99.81 DEPENDENCE ON SUPPLEMENTAL OXYGEN 12/05/2015 BAIMA, PALOMO L WIRELESS TELEGRAPHER Ot G47.33 OBSTRUCTIVE SLEEP APNEA (ADULT) (PEDIATR 12/05/2015 BAIMA, PALOMO L WIRELESS TELEGRAPHER Ot I48.92 UNSPECIFIED ATRIAL FLUTTER 12/05/2015 BAIMA, PALOMO L WIRELESS TELEGRAPHER Ot R06.00 DYSPNEA, UNSPECIFIED 12/05/2015 BAIMA, PALOMO L WIRELESS TELEGRAPHER Ot Z72.0 TOBACCO USE 12/18/2015 BAIMA, PALOMO L WIRELESS TELEGRAPHER Ot G47.33 OBSTRUCTIVE SLEEP APNEA (ADULT) (PEDIATR 12/18/2015 BAIMA, PALOMO L WIRELESS TELEGRAPHER Ot I48.92 UNSPECIFIED ATRIAL FLUTTER 12/18/2015 BAIMA, PALOMO L WIRELESS TELEGRAPHER Ot R06.00 DYSPNEA, UNSPECIFIED 12/18/2015 BAIMA, PALOMO L WIRELESS TELEGRAPHER Ot Z72.0 TOBACCO USE 02/20/2016 BAIMA, PALOMO L WIRELESS TELEGRAPHER Ot G47.33 OBSTRUCTIVE SLEEP APNEA (ADULT) (PEDIATR 02/20/2016 BAIMA, PALOMO L WIRELESS TELEGRAPHER Ot I48.92 UNSPECIFIED ATRIAL FLUTTER 02/20/2016 BAIMA, PALOMO L WIRELESS TELEGRAPHER Ot R42 DIZZINESS AND GIDDINESS 02/20/2016 BAIMA, PALOMO L WIRELESS TELEGRAPHER Ot Z72.0 TOBACCO USE 03/07/2016 BAIMA, PALOMO L WIRELESS TELEGRAPHER Ot G47.33 OBSTRUCTIVE SLEEP APNEA (ADULT) (PEDIATR 03/07/2016 BAIMA, PALOMO L WIRELESS TELEGRAPHER Ot I48.92 UNSPECIFIED ATRIAL FLUTTER 03/07/2016 BAIMA, PALOMO L WIRELESS TELEGRAPHER Ot R42 DIZZINESS AND GIDDINESS 03/07/2016 BAIMA, PALOMO L WIRELESS TELEGRAPHER Ot Z72.0 TOBACCO USE 08/24/2016 BAIMA, PALOMO L WIRELESS TELEGRAPHER Ot G47.33 OBSTRUCTIVE SLEEP APNEA (ADULT) (PEDIATR 08/24/2016 BAIMAPALOMO L WIRELESS TELEGRAPHER Ot I48.92 UNSPECIFIED ATRIAL FLUTTER 08/24/2016 BAIMAPHUONGPALOMO L WIRELESS TELEGRAPHER Ot R06.00 DYSPNEA, UNSPECIFIED 08/24/2016 BAIMA, PALOMO L WIRELESS TELEGRAPHER Ot Z72.0 TOBACCO USE 08/24/2016 BAIMA, PALOMO L WIRELESS TELEGRAPHER Ot G47.33 OBSTRUCTIVE SLEEP APNEA (ADULT) (PEDIATR 08/24/2016 BAIMA PALOMO L WIRELESS TELEGRAPHER Ot I48.92 UNSPECIFIED ATRIAL FLUTTER 08/24/2016 BAIMA PALOMO L WIRELESS TELEGRAPHER Ot R42 DIZZINESS AND GIDDINESS 08/24/2016 BAIMA PALOMO L WIRELESS TELEGRAPHER Ot Z72.0 TOBACCO USE 08/28/2016 YARELIS UMANA MD Ot E11.9 TYPE 2 DIABETES MELLITUS WITHOUT COMPLIC 08/28/2016 YARELIS UMANA MD Ot E66.9 OBESITY, UNSPECIFIED 08/28/2016 YARELIS UMANA MD Ot E78.00 PURE HYPERCHOLESTEROLEMIA, UNSPECIFIED 08/28/2016 YARELIS UMANA MD Ot F17.210 NICOTINE DEPENDENCE, CIGARETTES, UNCOMPL 08/28/2016 YARELIS UMANA MD Ot G47.33 OBSTRUCTIVE SLEEP APNEA (ADULT) (PEDIATR 08/28/2016 YARELIS UMANA MD Ot I10 ESSENTIAL (PRIMARY) HYPERTENSION 08/28/2016 YARELIS UMANA MD Ot I48.91 UNSPECIFIED ATRIAL FIBRILLATION 08/28/2016 YARELIS UMANA MD Ot J18.9 PNEUMONIA, UNSPECIFIED ORGANISM 08/28/2016 YARELIS UMANA MD Ot J44.0 CHRONIC OBSTRUCTIVE PULMON DISEASE W ACU 08/28/2016 YARELIS UMANA MD Ot J44.1 CHRONIC OBSTRUCTIVE PULMONARY DISEASE W 08/28/2016 YARELIS UMANA MD Ot R42 DIZZINESS AND GIDDINESS 08/28/2016 YARELIS UMANA MD Ot Z68.35 BODY MASS INDEX (BMI) 35.0-35.9, ADULT 03/18/2018 PALOMO ANDINO WIRELESS TELEGRAPHER Ot G47.33 OBSTRUCTIVE SLEEP APNEA (ADULT) (PEDIATR 03/18/2018 BAIMAPALOMO L WIRELESS TELEGRAPHER Ot I48.92 UNSPECIFIED ATRIAL FLUTTER 03/18/2018 BAIMA, PALOMO L WIRELESS TELEGRAPHER Ot R06.00 DYSPNEA, UNSPECIFIED 03/18/2018 BAIMA, PALOMO L WIRELESS TELEGRAPHER Ot Z72.0 TOBACCO USE 03/18/2018 BAIMA, PALOMO L WIRELESS TELEGRAPHER Ot G47.33 OBSTRUCTIVE SLEEP APNEA (ADULT) (PEDIATR 03/18/2018 BAIMA, PALOMO L WIRELESS TELEGRAPHER Ot I48.92 UNSPECIFIED ATRIAL FLUTTER 03/18/2018 BAIMA, PALOMO L WIRELESS TELEGRAPHER Ot R42 DIZZINESS AND GIDDINESS 03/18/2018 BAIMA, PALOMO L WIRELESS TELEGRAPHER Ot Z72.0 TOBACCO USE 03/22/2018 BAIMA, PALOMO L WIRELESS TELEGRAPHER Ot G47.33 OBSTRUCTIVE SLEEP APNEA (ADULT) (PEDIATR 03/22/2018 BAIMA, PALOMO L WIRELESS TELEGRAPHER Ot I48.92 UNSPECIFIED ATRIAL FLUTTER 03/22/2018 BAIMA, PALOMO L WIRELESS TELEGRAPHER Ot R06.00 DYSPNEA, UNSPECIFIED 03/22/2018 BAIMA, PALOMO L WIRELESS TELEGRAPHER Ot Z72.0 TOBACCO USE 03/22/2018 BAIMA, PALOMO L WIRELESS TELEGRAPHER Ot G47.33 OBSTRUCTIVE SLEEP APNEA (ADULT) (PEDIATR 03/22/2018 BAIMA, PALOMO L WIRELESS TELEGRAPHER Ot I48.92 UNSPECIFIED ATRIAL FLUTTER 03/22/2018 BAIMA, PALOMO L WIRELESS TELEGRAPHER Ot R42 DIZZINESS AND GIDDINESS 03/22/2018 BAIMA, PALOMO L WIRELESS TELEGRAPHER Ot Z72.0 TOBACCO USE 03/22/2018 DUSTIN WAGNER MD Ot 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 03/22/2018 DUSTIN WAGNER MD Ot Z01.812 ENCOUNTER FOR PREPROCEDURAL LABORATORY E 03/22/2018 DUSTIN WAGNER MD Ot Z11.2 ENCOUNTER FOR SCREENING FOR OTHER BACTER 03/23/2018 DUSTIN WAGNER MD Ot 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 03/23/2018 DUSTIN WAGNER MD Ot Z01.812 ENCOUNTER FOR PREPROCEDURAL LABORATORY E 03/23/2018 DUSTIN WAGNER MD Ot Z11.2 ENCOUNTER FOR SCREENING FOR OTHER BACTER 04/06/2018 DUSTIN WAGNER MD Ot C32.1 MALIGNANT NEOPLASM OF SUPRAGLOTTIS 04/06/2018 DUSTIN WAGNER MD Ot F17.210 NICOTINE DEPENDENCE, CIGARETTES, UNCOMPL 04/06/2018 DUSTIN WAGNER MD Ot G47.33 OBSTRUCTIVE SLEEP APNEA (ADULT) (PEDIATR 04/06/2018 DUSTIN WAGNER MD, Ot I48.91 UNSPECIFIED ATRIAL FIBRILLATION 04/06/2018 DUSTIN WAGNER MD, Ot J44.9 CHRONIC OBSTRUCTIVE PULMONARY DISEASE, U 04/06/2018 DUSTIN WAGNER MD, Ot Z79.01 SUBSTATION OPERATOR CHIEF (CURRENT) USE OF ANTICOAGULANT 04/06/2018 DUSTIN WAGNER MD, Ot Z79.899 OTHER SUBSTATION OPERATOR CHIEF (CURRENT) DRUG THERAPY 04/06/2018 DUSTIN WAGNER MD, Ot Z99.81 DEPENDENCE ON SUPPLEMENTAL OXYGEN 04/15/2018 DUSTIN WAGNER MD, Ot C32.1 MALIGNANT NEOPLASM OF SUPRAGLOTTIS 04/15/2018 DUSTIN WAGNER MD, Ot R94.8 ABNORMAL RESULTS OF FUNCTION STUDIES OF Procedures There is no data. Results Test Result Range Complete blood count (CBC) with automated white blood cell (WBC) differential - 08/24/16 01:20 Blood leukocytes automated count (number/volume) 10.6 10*3/uL 4.3-11.0 Blood erythrocytes automated count (number/volume) 4.03 10*6/uL 4.35-5.85 Venous blood hemoglobin measurement (mass/volume) 11.7 g/dL 11.5-16.0 Blood hematocrit (volume fraction) 35 % 35-52 Automated erythrocyte mean corpuscular volume 87 [foz_us] 80-99 Automated erythrocyte mean corpuscular hemoglobin (mass per erythrocyte) 29 pg 25-34 Automated erythrocyte mean corpuscular hemoglobin concentration measurement ( mass/volume) 33 g/dL 32-36 Automated erythrocyte distribution width ratio 13.6 % 10.0-14.5 Automated blood platelet count (count/volume) 215 10*3/uL 130-400 Automated blood platelet mean volume measurement 9.9 [foz_us] 7.4-10.4 Automated blood neutrophils/100 leukocytes 81 % 42-75 Automated blood lymphocytes/100 leukocytes 10 % 12-44 Blood monocytes/100 leukocytes 9 % 0-12 Automated blood eosinophils/100 leukocytes 0 % 0-10 Automated blood basophils/100 leukocytes 0 % 0-10 Blood neutrophils automated count (number/volume) 8.6 10*3 1.8-7.8 Blood lymphocytes automated count (number/volume) 1.1 10*3 1.0-4.0 Blood monocytes automated count (number/volume) 1.0 10*3 0.0-1.0 Automated eosinophil count 0.0 10*3/uL 0.0-0.3 Automated blood basophil count (count/volume) 0.0 10*3/uL 0.0-0.1 Blood lactic acid measurement (moles/volume) - 08/24/16 01:20 Blood lactic acid measurement (moles/volume) 1.82 mmol/L 0.50-2.00 Comprehensive metabolic panel - 08/24/16 01:20 Serum or plasma sodium measurement (moles/volume) 132 mmol/L 135-145 Serum or plasma potassium measurement (moles/volume) 3.8 mmol/L 3.6-5.0 Serum or plasma chloride measurement (moles/volume) 97 mmol/L 98-107 Carbon dioxide 22 mmol/L 21-32 Serum or plasma anion gap determination (moles/volume) 13 mmol/L 5-14 Serum or plasma urea nitrogen measurement (mass/volume) 6 mg/dL 7-18 Serum or plasma creatinine measurement (mass/volume) 0.69 mg/dL 0.60-1.30 Serum or plasma urea nitrogen/creatinine mass ratio 9 NRG Serum or plasma creatinine measurement with calculation of estimated glomerular filtration rate > NRG Serum or plasma glucose measurement (mass/volume) 146 mg/dL 70-105 Serum or plasma calcium measurement (mass/volume) 9.1 mg/dL 8.5-10.1 Serum or plasma total bilirubin measurement (mass/volume) 0.5 mg/dL 0.1-1.0 Serum or plasma alkaline phosphatase measurement (enzymatic activity/volume) 75 U/L 40-136 Serum or plasma aspartate aminotransferase measurement (enzymatic activity/ volume) 17 U/L 5-34 Serum or plasma alanine aminotransferase measurement (enzymatic activity/volume ) 20 U/L 0-55 Serum or plasma protein measurement (mass/volume) 6.5 g/dL 6.4-8.2 Serum or plasma albumin measurement (mass/volume) 4.1 g/dL 3.2-4.5 Magnesium - 08/24/16 01:20 Magnesium 1.7 mg/dL 1.8-2.4 Serum or plasma lithium measurement (moles/volume) - 08/24/16 01:20 BNP level 44.9 pg/mL <100.0 Serum or plasma troponin i.cardiac measurement (mass/volume) - 08/24/16 01:20 Serum or plasma troponin i.cardiac measurement (mass/volume) < ng/ mL <0.30 Fibrin D-dimer FEU measurement in platelet poor plasma (mass/volume) - 01:20 Fibrin D-dimer FEU measurement in platelet poor plasma (mass/volume) 0.33 ug/mL 0.00-0.49 Bacterial blood culture - 08/24/16 01:20 Bacterial blood culture NG NRG Complete urinalysis with reflex to culture - 08/24/16 01:29 Urine color determination YELLOW NRG Urine clarity determination CLEAR NRG Urine pH measurement by test strip 7 5-9 Specific gravity of urine by test strip 1.005 1.016- 1.022 Urine protein assay by test strip, semi-quantitative 1+ NEGATIVE Urine glucose detection by automated test strip NEGATIVE NEGATIVE Erythrocytes detection in urine sediment by light microscopy 2+ NEGATIVE Urine ketones detection by automated test strip NEGATIVE NEGATIVE Urine nitrite detection by test strip NEGATIVE NEGATIVE Urine total bilirubin detection by test strip NEGATIVE NEGATIVE Urine urobilinogen measurement by automated test strip (mass/volume) NORMAL NORMAL Urine leukocyte esterase detection by dipstick NEGATIVE NEGATIVE Automated urine sediment erythrocyte count by microscopy (number/high power field) RARE NRG Automated urine sediment leukocyte count by microscopy (number/high power field ) NONE NRG Bacteria detection in urine sediment by light microscopy NEGATIVE NRG Squamous epithelial cells detection in urine sediment by light microscopy 0-2 NRG Crystals detection in urine sediment by light microscopy NONE NRG Casts detection in urine sediment by light microscopy NONE NRG Mucus detection in urine sediment by light microscopy NEGATIVE NRG Complete urinalysis with reflex to culture NO NRG Influenza virus A and B antigen detection - 08/24/16 01:29 FLU RESULT NEGATIVE FOR INFLUENZA A AND B ANTIGENS BY IA NRG Bacterial blood culture - 08/24/16 01:38 Bacterial blood culture NG NRG THYROID STIMULATING HORMONE - 08/24/16 02:00 THYROID STIMULATING HORMONE 2.06 u[iU]/mL 0.35-4.94 Capillary blood glucose measurement by glucometer (mass/volume) - 08/24/16 16: 18 Capillary blood glucose measurement by glucometer (mass/volume) 359 mg/dL 70-110 Capillary blood glucose measurement by glucometer (mass/volume) - 08/24/16 21: 07 Capillary blood glucose measurement by glucometer (mass/volume) 245 mg/dL 70-110 Capillary blood glucose measurement by glucometer (mass/volume) - 08/25/16 05: 16 Capillary blood glucose measurement by glucometer (mass/volume) 242 mg/dL 70-110 Capillary blood glucose measurement by glucometer (mass/volume) - 08/25/16 10: 18 Capillary blood glucose measurement by glucometer (mass/volume) 247 mg/dL 70-110 Capillary blood glucose measurement by glucometer (mass/volume) - 08/25/16 14: 53 Capillary blood glucose measurement by glucometer (mass/volume) 204 mg/dL 70-110 Capillary blood glucose measurement by glucometer (mass/volume) - 08/25/16 22: 12 Capillary blood glucose measurement by glucometer (mass/volume) 189 mg/dL 70-110 Capillary blood glucose measurement by glucometer (mass/volume) - 08/26/16 06: 01 Capillary blood glucose measurement by glucometer (mass/volume) 239 mg/dL 70-110 Complete blood count (CBC) with automated white blood cell (WBC) differential - 08/26/16 08:32 Blood leukocytes automated count (number/volume) 18.8 10*3/uL 4.3-11.0 Blood erythrocytes automated count (number/volume) 3.86 10*6/uL 4.35-5.85 Venous blood hemoglobin measurement (mass/volume) 11.2 g/dL 11.5-16.0 Blood hematocrit (volume fraction) 34 % 35-52 Automated erythrocyte mean corpuscular volume 89 [foz_us] 80-99 Automated erythrocyte mean corpuscular hemoglobin (mass per erythrocyte) 29 pg 25-34 Automated erythrocyte mean corpuscular hemoglobin concentration measurement ( mass/volume) 33 g/dL 32-36 Automated erythrocyte distribution width ratio 13.9 % 10.0-14.5 Automated blood platelet count (count/volume) 202 10*3/uL 130-400 Automated blood platelet mean volume measurement 9.9 [foz_us] 7.4-10.4 Automated blood neutrophils/100 leukocytes 93 % 42-75 Automated blood lymphocytes/100 leukocytes 4 % 12-44 Blood monocytes/100 leukocytes 3 % 0-12 Automated blood eosinophils/100 leukocytes 0 % 0-10 Automated blood basophils/100 leukocytes 0 % 0-10 Blood neutrophils automated count (number/volume) 17.5 10*3 1.8-7.8 Blood lymphocytes automated count (number/volume) 0.7 10*3 1.0-4.0 Blood monocytes automated count (number/volume) 0.6 10*3 0.0-1.0 Automated eosinophil count 0.0 10*3/uL 0.0-0.3 Automated blood basophil count (count/volume) 0.0 10*3/uL 0.0-0.1 Whole blood basic metabolic panel - 08/26/16 08:32 Serum or plasma sodium measurement (moles/volume) 138 mmol/L 135-145 Serum or plasma potassium measurement (moles/volume) 3.7 mmol/L 3.6-5.0 Serum or plasma chloride measurement (moles/volume) 102 mmol/L 98-107 Carbon dioxide 24 mmol/L 21-32 Serum or plasma anion gap determination (moles/volume) 12 mmol/L 5-14 Serum or plasma urea nitrogen measurement (mass/volume) 14 mg/dL 7-18 Serum or plasma creatinine measurement (mass/volume) 0.70 mg/dL 0.60-1.30 Serum or plasma urea nitrogen/creatinine mass ratio 20 NRG Serum or plasma creatinine measurement with calculation of estimated glomerular filtration rate > NRG Serum or plasma glucose measurement (mass/volume) 262 mg/dL 70-105 Serum or plasma calcium measurement (mass/volume) 8.6 mg/dL 8.5-10.1 Blood manual differential performed detection - 08/26/16 08:32 Blood monocytes/100 leukocytes 2 % NRG Manual blood segmented neutrophils/100 leukocytes 91 % NRG Blood band neutrophils/100 leukocytes 0 % NRG Manual blood lymphocytes/100 leukocytes 7 % NRG Manual eosinophils/100 leukocytes in nose 0 % NRG Manual blood basophils/100 leukocytes 0 % NRG Blood erythrocyte morphology finding identification NORMAL NRG Serum or plasma lithium measurement (moles/volume) - 08/26/16 08:32 BNP level 141.2 pg/mL <100.0 Capillary blood glucose measurement by glucometer (mass/volume) - 08/26/16 10: 21 Capillary blood glucose measurement by glucometer (mass/volume) 241 mg/dL 70-110 Capillary blood glucose measurement by glucometer (mass/volume) - 08/26/16 14: 52 Capillary blood glucose measurement by glucometer (mass/volume) 242 mg/dL 70-110 Capillary blood glucose measurement by glucometer (mass/volume) - 08/26/16 20: 33 Capillary blood glucose measurement by glucometer (mass/volume) 228 mg/dL 70-110 Complete blood count (CBC) with automated white blood cell (WBC) differential - 08/27/16 04:00 Blood leukocytes automated count (number/volume) 12.8 10*3/uL 4.3-11.0 Blood erythrocytes automated count (number/volume) 3.73 10*6/uL 4.35-5.85 Venous blood hemoglobin measurement (mass/volume) 10.7 g/dL 11.5-16.0 Blood hematocrit (volume fraction) 33 % 35-52 Automated erythrocyte mean corpuscular volume 89 [foz_us] 80-99 Automated erythrocyte mean corpuscular hemoglobin (mass per erythrocyte) 29 pg 25-34 Automated erythrocyte mean corpuscular hemoglobin concentration measurement ( mass/volume) 32 g/dL 32-36 Automated erythrocyte distribution width ratio 13.8 % 10.0-14.5 Automated blood platelet count (count/volume) 202 10*3/uL 130-400 Automated blood platelet mean volume measurement 10.1 [foz_us] 7.4-10.4 Automated blood neutrophils/100 leukocytes 92 % 42-75 Automated blood lymphocytes/100 leukocytes 5 % 12-44 Blood monocytes/100 leukocytes 4 % 0-12 Automated blood eosinophils/100 leukocytes 0 % 0-10 Automated blood basophils/100 leukocytes 0 % 0-10 Blood neutrophils automated count (number/volume) 11.7 10*3 1.8-7.8 Blood lymphocytes automated count (number/volume) 0.6 10*3 1.0-4.0 Blood monocytes automated count (number/volume) 0.5 10*3 0.0-1.0 Automated eosinophil count 0.0 10*3/uL 0.0-0.3 Automated blood basophil count (count/volume) 0.0 10*3/uL 0.0-0.1 Comprehensive metabolic panel - 08/27/16 04:00 Serum or plasma sodium measurement (moles/volume) 138 mmol/L 135-145 Serum or plasma potassium measurement (moles/volume) 3.6 mmol/L 3.6-5.0 Serum or plasma chloride measurement (moles/volume) 99 mmol/L 98-107 Carbon dioxide 28 mmol/L 21-32 Serum or plasma anion gap determination (moles/volume) 11 mmol/L 5-14 Serum or plasma urea nitrogen measurement (mass/volume) 16 mg/dL 7-18 Serum or plasma creatinine measurement (mass/volume) 0.65 mg/dL 0.60-1.30 Serum or plasma urea nitrogen/creatinine mass ratio 25 NRG Serum or plasma creatinine measurement with calculation of estimated glomerular filtration rate > NRG Serum or plasma glucose measurement (mass/volume) 225 mg/dL 70-105 Serum or plasma calcium measurement (mass/volume) 8.5 mg/dL 8.5-10.1 Serum or plasma total bilirubin measurement (mass/volume) 0.2 mg/dL 0.1-1.0 Serum or plasma alkaline phosphatase measurement (enzymatic activity/volume) 61 U/L 40-136 Serum or plasma aspartate aminotransferase measurement (enzymatic activity/ volume) 17 U/L 5-34 Serum or plasma alanine aminotransferase measurement (enzymatic activity/volume ) 23 U/L 0-55 Serum or plasma protein measurement (mass/volume) 5.7 g/dL 6.4-8.2 Serum or plasma albumin measurement (mass/volume) 3.5 g/dL 3.2-4.5 Capillary blood glucose measurement by glucometer (mass/volume) - 08/27/16 09: 55 Capillary blood glucose measurement by glucometer (mass/volume) 257 mg/dL 70-110 Capillary blood glucose measurement by glucometer (mass/volume) - 08/27/16 16: 25 Capillary blood glucose measurement by glucometer (mass/volume) 291 mg/dL 70-110 Capillary blood glucose measurement by glucometer (mass/volume) - 08/27/16 21: 29 Capillary blood glucose measurement by glucometer (mass/volume) 350 mg/dL 70-110 Complete blood count (CBC) with automated white blood cell (WBC) differential - 08/28/16 05:51 Blood leukocytes automated count (number/volume) 9.1 10*3/uL 4.3-11.0 Blood erythrocytes automated count (number/volume) 3.89 10*6/uL 4.35-5.85 Venous blood hemoglobin measurement (mass/volume) 11.1 g/dL 11.5-16.0 Blood hematocrit (volume fraction) 34 % 35-52 Automated erythrocyte mean corpuscular volume 88 [foz_us] 80-99 Automated erythrocyte mean corpuscular hemoglobin (mass per erythrocyte) 29 pg 25-34 Automated erythrocyte mean corpuscular hemoglobin concentration measurement ( mass/volume) 32 g/dL 32-36 Automated erythrocyte distribution width ratio 13.3 % 10.0-14.5 Automated blood platelet count (count/volume) 192 10*3/uL 130-400 Automated blood platelet mean volume measurement 10.1 [foz_us] 7.4-10.4 Automated blood neutrophils/100 leukocytes 87 % 42-75 Automated blood lymphocytes/100 leukocytes 8 % 12-44 Blood monocytes/100 leukocytes 6 % 0-12 Automated blood eosinophils/100 leukocytes 0 % 0-10 Automated blood basophils/100 leukocytes 0 % 0-10 Blood neutrophils automated count (number/volume) 7.8 10*3 1.8-7.8 Blood lymphocytes automated count (number/volume) 0.7 10*3 1.0-4.0 Blood monocytes automated count (number/volume) 0.5 10*3 0.0-1.0 Automated eosinophil count 0.0 10*3/uL 0.0-0.3 Automated blood basophil count (count/volume) 0.0 10*3/uL 0.0-0.1 Comprehensive metabolic panel - 08/28/16 05:51 Serum or plasma sodium measurement (moles/volume) 136 mmol/L 135-145 Serum or plasma potassium measurement (moles/volume) 3.7 mmol/L 3.6-5.0 Serum or plasma chloride measurement (moles/volume) 95 mmol/L 98-107 Carbon dioxide 29 mmol/L 21-32 Serum or plasma anion gap determination (moles/volume) 12 mmol/L 5-14 Serum or plasma urea nitrogen measurement (mass/volume) 16 mg/dL 7-18 Serum or plasma creatinine measurement (mass/volume) 0.69 mg/dL 0.60-1.30 Serum or plasma urea nitrogen/creatinine mass ratio 23 NRG Serum or plasma creatinine measurement with calculation of estimated glomerular filtration rate > NRG Serum or plasma glucose measurement (mass/volume) 278 mg/dL 70-105 Serum or plasma calcium measurement (mass/volume) 8.5 mg/dL 8.5-10.1 Serum or plasma total bilirubin measurement (mass/volume) 0.2 mg/dL 0.1-1.0 Serum or plasma alkaline phosphatase measurement (enzymatic activity/volume) 64 U/L 40-136 Serum or plasma aspartate aminotransferase measurement (enzymatic activity/ volume) 20 U/L 5-34 Serum or plasma alanine aminotransferase measurement (enzymatic activity/volume ) 33 U/L 0-55 Serum or plasma protein measurement (mass/volume) 5.7 g/dL 6.4-8.2 Serum or plasma albumin measurement (mass/volume) 3.5 g/dL 3.2-4.5 Capillary blood glucose measurement by glucometer (mass/volume) - 08/28/16 06: 11 Capillary blood glucose measurement by glucometer (mass/volume) 260 mg/dL 70-110 Capillary blood glucose measurement by glucometer (mass/volume) - 08/28/16 10: 53 Capillary blood glucose measurement by glucometer (mass/volume) 266 mg/dL 70-110 Methicillin resistant Staphylococcus aureus (MRSA) screening culture - 12:50 Methicillin resistant Staphylococcus aureus (MRSA) screening culture NEG NRG Complete blood count (CBC) with automated white blood cell (WBC) differential - 03/22/18 12:55 Blood leukocytes automated count (number/volume) 9.3 10*3/uL 4.3-11.0 Blood erythrocytes automated count (number/volume) 4.26 10*6/uL 4.35-5.85 Venous blood hemoglobin measurement (mass/volume) 12.4 g/dL 11.5-16.0 Blood hematocrit (volume fraction) 39 % 35-52 Automated erythrocyte mean corpuscular volume 91 [foz_us] 80-99 Automated erythrocyte mean corpuscular hemoglobin (mass per erythrocyte) 29 pg 25-34 Automated erythrocyte mean corpuscular hemoglobin concentration measurement ( mass/volume) 32 g/dL 32-36 Automated erythrocyte distribution width ratio 13.9 % 10.0-14.5 Automated blood platelet count (count/volume) 280 10*3/uL 130-400 Automated blood platelet mean volume measurement 9.8 [foz_us] 7.4-10.4 Automated blood neutrophils/100 leukocytes 71 % 42-75 Automated blood lymphocytes/100 leukocytes 20 % 12-44 Blood monocytes/100 leukocytes 8 % 0-12 Automated blood eosinophils/100 leukocytes 1 % 0-10 Automated blood basophils/100 leukocytes 0 % 0-10 Blood neutrophils automated count (number/volume) 6.5 10*3 1.8-7.8 Blood lymphocytes automated count (number/volume) 1.9 10*3 1.0-4.0 Blood monocytes automated count (number/volume) 0.7 10*3 0.0-1.0 Automated eosinophil count 0.1 10*3/uL 0.0-0.3 Automated blood basophil count (count/volume) 0.0 10*3/uL 0.0-0.1 Whole blood basic metabolic panel - 03/22/18 12:55 Serum or plasma sodium measurement (moles/volume) 140 mmol/L 135-145 Serum or plasma potassium measurement (moles/volume) 3.7 mmol/L 3.6-5.0 Serum or plasma chloride measurement (moles/volume) 102 mmol/L 98-107 Carbon dioxide 25 mmol/L 21-32 Serum or plasma anion gap determination (moles/volume) 13 mmol/L 5-14 Serum or plasma urea nitrogen measurement (mass/volume) 9 mg/dL 7-18 Serum or plasma creatinine measurement (mass/volume) 0.68 mg/dL 0.60-1.30 Serum or plasma urea nitrogen/creatinine mass ratio 13 NRG Serum or plasma creatinine measurement with calculation of estimated glomerular filtration rate > NRG Serum or plasma glucose measurement (mass/volume) 150 mg/dL 70-105 Serum or plasma calcium measurement (mass/volume) 9.4 mg/dL 8.5-10.1 PT panel in platelet poor plasma by coagulation assay - 04/01/18 07:08 Prothrombin time (PT) in platelet poor plasma by coagulation assay 18.1 s 12.2-14.7 INR in platelet poor plasma or blood by coagulation assay 1.5 0.8-1.4 Encounters ACCT No. Visit Date/Time Discharge Status Pt. Type Provider Facility Loc./Unit Complaint [id number] 04/06/2018 07:58:00 04/06/2018 23:59:59 CLS Outpatient DUSTIN WAGNER MD [facility] OT LARYNGEAL SURFACE OF EPIGLOTTIS [id number] 04/01/2018 06:33:00 04/01/2018 10:30:00 DIS Outpatient DUSTIN WAGNER MD [facility] EPIGLOTTIC LESION [id number] 03/22/2018 12:11:00 03/22/2018 16:00:00 DIS Outpatient DUSTIN WAGNER MD [facility] PREOP EPIGLOTTIC LESION [id number] 08/24/2016 03:45:00 08/28/2016 13:58:00 DIS Inpatient LYNDSAY TELLO, YARELIS Ware [facility] 4TH AECOPD; PNEUMONIA [id number] 02/19/2016 15:10:00 02/19/2016 23:59:59 CLS Outpatient PALOMO ANDINO [facility] LAB POSTURAL DIZZINESS, DALE ON CPAP [id number] 12/04/2015 09:21:00 12/04/2015 23:59:59 CLS Outpatient PALOMO ANDINO [facility] CARD PAROXYSMAL AFIB, DYSPNEA DALE ON CPAP [id number] 10/18/2015 15:21:00 10/21/2015 13:13:00 DIS Inpatient SUSSY PERES DO [facility] 4TH COPD,AE [id number] 04/14/2018 08:16:00 ACT Outpatient ANTONIA TELLO, FIORELLA Guillen [facility] ONC
[2018-04-16] MEDS ORDERED: RT-ALBUTEROL/IPRATROPIUM 3 ML (DUONEB) VIAL ONE ×2 (10:33→10:38)
[2018-04-16] MEDS ORDERED: RT-ALBUTEROL SULF 2.5 MG/3 ML PRE-MIX VIAL ONE (10:38)
[2018-04-16] MEDS ORDERED: methylPREDNISolone 125 MG (Solu-MEDROL) VIAL IVP ONE (10:45)
[2018-04-16] MEDS ORDERED: RT-ALBUTEROL SULF 2.5 MG/3 ML PRE-MIX VIAL INH ONE (10:45)
[2018-04-16] MEDS ORDERED: RT-ALBUTEROL/IPRATROPIUM 3 ML (DUONEB) VIAL INH ONE (10:45)
[2018-04-16 11:00] LABS: BASOPHILS % (AUTO) 0 % (0-10); EOSINOPHILS # (AUTO) 0.1 10^3/uL (0.0-0.3); EOSINOPHILS % (AUTO) 1 % (0-10); HEMATOCRIT 39 % (35-52); HEMOGLOBIN 12.7 G/DL (11.5-16.0); LYMPHOCYTES # (AUTO) 1.2 X 10^3 (1.0-4.0); LYMPHOCYTES % (AUTO) 12 % (12-44); MEAN CORPUSCULAR HEMOGLOBIN 29 PG (25-34); MEAN CORPUSCULAR HGB CONC 33 G/DL (32-36); MEAN CORPUSCULAR VOLUME 89 FL (80-99); MEAN PLATELET VOLUME 9.7 FL (7.4-10.4); MONOCYTES # (AUTO) 0.8 X 10^3 (0.0-1.0); MONOCYTES % (AUTO) 8 % (0-12); NEUTROPHILS # (AUTO) 7.9 X 10^3 (1.8-7.8); NEUTROPHILS % (AUTO) 79 % (42-75); PLATELET COUNT 237 10^3/uL (130-400); RED BLOOD COUNT 4.33 10^6/uL (4.35-5.85); RED CELL DISTRIBUTION WIDTH 13.8 % (10.0-14.5)
[2018-04-16] MEDS ORDERED: fentaNYL INJECTION 100 MCG/2 ML AMP IVP ONE (11:15)
[2018-04-16 11:25] LABS: ALANINE AMINOTRANSFERASE 20 U/L (0-55); ALBUMIN 4.4 GM/DL (3.2-4.5); ALKALINE PHOSPHATASE 93 U/L (40-136); BILIRUBIN,TOTAL 0.4 MG/DL (0.1-1.0); BUN/CREATININE RATIO 11; CALCIUM 9.4 MG/DL (8.5-10.1); CARBON DIOXIDE 22 MMOL/L (21-32); CHLORIDE 97 MMOL/L (98-107); CREATININE SERUM 0.72 MG/DL (0.60-1.30); GFR ESTIMATED > 60; GLUCOSE 145 MG/DL (70-105); POTASSIUM 3.7 MMOL/L (3.6-5.0); SODIUM 135 MMOL/L (135-145); TOTAL PROTEIN 7.1 GM/DL (6.4-8.2)
[2018-04-16 11:46] LABS: FREE T4 (FREE THYROXINE) 0.96 NG/DL (0.70-1.48)
--- NOTE | 2018-04-16 11:50 | Diagnostic Imaging Report ---
INDICATION: Cough. Epiglottis malignancy. COMPARISON: CT/PET dated 04/06/2018. FINDINGS: Single frontal radiographic view of the chest was obtained and demonstrates normal cardiac silhouette and pulmonary vasculature. Evaluation of the lung martinez demonstrates 1.6 x 1.6 cm nodular opacity within the right lower lung field. There is suggestion of smaller nodular opacity within the right suprahilar area on the right. These areas correspond to soft tissue nodular density seen on recent CT/PET. There is no focal consolidation, large effusion, nor pneumothorax. Bony structures show no acute abnormalities. IMPRESSION: 1. No evidence of failure or focal infiltrate. 2. Nodular opacities in the right lung as described above. Correlation with recent CT/PET is recommended. Dictated by: Dictated on workstation # [id number]
[2018-04-16 11:55] VITALS: BP 105/72
[2018-04-16 12:02] LABS: INR 2.2 (0.8-1.4); PROTHROMBIN TIME PATIENT 24.9 SEC (12.2-14.7)
[2018-04-16] MEDS ORDERED: WARF-47 PO (12:21)
--- NOTE | 2018-04-16 12:35 | ED Respiratory ---
General Chief Complaint: Respiratory Problems Stated Complaint: SOB Nursing Triage Note: PT PRESENTS TO ER WITH COMPLAINT OF SOB. STATES IT STARTED YESTERDAY AND HAS PROGRESSIVELY WORSENED. PT STATES SHE WAS DIAGNOSED WITH EPIGLOTTIS CANCER LAST WEEK. Source: patient Exam Limitations: no limitations History of Present Illness Date Seen by Provider: Apr 16, 2018 Time Seen by Provider: 10:30 Initial Comments This 62-year-old woman with COPD presents to the emergency room with shortness of breath and wheezing. Symptoms started yesterday and have become progressively worse. She denies fever. 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 Allergies and Home Medications Allergies Coded Allergies: codeine (Verified Adverse Reaction, Mild, GI UPSET, 04/01/18) Home Medications Albuterol Sulfate 1 Puff Puff, 2 PUFF IH Q6H PRN for SHORTNESS OF BREATH, ( Reported) 1 PUFF = 90 MCG Citalopram Hydrobromide 20 Mg Tablet, 20 MG PO HS, (Reported) Diltiazem HCl 180 Mg Cap.er.24h, 180 MG PO DAILY, (Reported) Diphenhydramine HCl 50 Mg Capsule, 50 MG PO HS, (Reported) Fluticasone/Vilanterol 1 Each Blst.w.dev, 1 PUFF IH DAILY, (Reported) Ipratropium/Albuterol Sulfate 3 Ml Ampul.neb, 3 ML NEB Q6H, (Reported) Levalbuterol HCl 1.25 Mg/3 Ml Vial.neb, 1.25 MG NEB Q6H PRN for SHORTNESS OF BREATH, (Reported) Levothyroxine Sodium 50 Mcg Tablet, 50 MCG PO DAILY, (Reported) Nicotine 1 Each Patch.td24, 14 MG TD DAILY, (Reported) Prednisone 20 Mg Tab, 20 MG PO as directed Take 2 tabs each a.m. 3 day Then take 1 tab each a.m. 3 days. Then take one half tablet each a.m. 4 days. Then stop Prescribed by: YARELIS UMANA on 04/19/18 1131 Tiotropium [place] 4 Gm Mist.inhal, 2 PUFF IH DAILY, (Reported) Warfarin Sodium 2 Mg Tablet, 2 MG PO Sa, (Reported) Warfarin Sodium 6 Mg Tablet, 6 MG PO SuMoTuWeThFr, (Reported) Patient Home Medication List Home Medication List Reviewed: Yes Review of Systems Review of Systems Constitutional: no symptoms reported EENTM: see HPI Respiratory: see HPI Cardiovascular: no symptoms reported Gastrointestinal: no symptoms reported Genitourinary: no symptoms reported : No Musculoskeletal: no symptoms reported Skin: no symptoms reported Psychiatric/Neurological: No Symptoms Reported Hematologic/Lymphatic: No Symptoms Reported Immunological/Allergic: no symptoms reported Past Mjwvhnx-Nvlxvq-Zothsy Hx Patient Social History Alcohol Use: Denies Use Recreational Drug Use: No Type Used: Cigarettes Recent Foreign Travel: No Contact w/Someone Who Travel: No Recent Infectious Disease Expo: No Recent Hopitalizations: No Immunizations Up To Date Tetanus Booster (TDap): Unknown PED Vaccines UTD: No Date of Pneumonia Vaccine: Mar 22, 2016 Date of Influenza Vaccine: Mar 23, 2017 Seasonal Allergies Seasonal Allergies: No Past Medical History Surgeries: Yes (HEART SURGERY WHEN 5 YRS OLD) Appendectomy, Tonsillectomy Respiratory: Yes (O2 3L NC AT ALL TIMES) Sleep Apnea, COPD Currently Using CPAP: Yes Currently Using BIPAP: No Cardiac: Yes (OPEN HEART SURGERY WHEN 5 YRS OLD (HEART CHAMBER SURGERY)) Atrial Fibrillation, High Cholesterol Neurological: Yes (RARELY) Headaches /Migraines Reproductive Disorders: No Female Reproductive Disorders: Denies Sexually Transmitted Disease: No HIV/AIDS: No Gastrointestinal: No Musculoskeletal: Yes Chronic Back Pain Endocrine: Yes (TOLD HAS LOW THYRIOD, BUT NO MEDS) Cataract Loss of Vision: Bilateral Hearing Impairment: Denies Cancer: No Psychosocial: Yes Sleep Difficulties, Depression Integumentary: No Recent Skin Changes Blood Disorders: No Adverse Reaction/Blood Tranf: No (N/A) Family Medical History CANCER 19 FATHER CANCER 19 FATHER Dementia G8 BROTHER (ENCEPALITIS ) FHx: cancer Hypertension 19 MOTHER Thyroid disease 19 MOTHER Physical Exam Capillary Refill : Less Than 3 Seconds Height: 5'4.00" Weight: 200lbs. 7.0oz. 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, no motor/sensory deficits, alert, normal mood/affect, oriented x 3 Skin: normal color, warm/dry Progress/Results/Core Measures Suspected Sepsis Recent Fever Within 48 Hours: No Infection Criteria Present: None New/Unexplained Altered Menta: No Sepsis Screen: No Definite Risk SIRS Temperature:99.4 Pulse: 111 Respiratory Rate: 22 Laboratory Tests 04/16/18 10:45: White Blood Count 10.0 Blood Pressure 105 /72 Mean: 106 Laboratory Tests 04/16/18 10:45: Creatinine 0.72, INR Comment 2.2H, Platelet Count 237, Total Bilirubin 0.4 Results/Orders Lab Results Laboratory Tests Test 04/16/18 10:45 Range/Units White Blood Count 10.0 4.3-11.0 10^3/uL Red Blood Count 4.33 L 4.35-5.85 10^6/uL Hemoglobin 12.7 11.5-16.0 G/DL Hematocrit 39 35-52 % Mean Corpuscular Volume 89 80-99 FL Mean Corpuscular Hemoglobin 29 25-34 PG Mean Corpuscular Hemoglobin Concent 33 32-36 G/DL Red Cell Distribution Width 13.8 10.0-14.5 % Platelet Count 237 130-400 10^3/uL Mean Platelet Volume 9.7 7.4-10.4 FL Neutrophils (%) (Auto) 79 H 42-75 % Lymphocytes (%) (Auto) 12 12-44 % Monocytes (%) (Auto) 8 0-12 % Eosinophils (%) (Auto) 1 0-10 % Basophils (%) (Auto) 0 0-10 % Neutrophils # (Auto) 7.9 H 1.8-7.8 X 10^3 Lymphocytes # (Auto) 1.2 1.0-4.0 X 10^3 Monocytes # (Auto) 0.8 0.0-1.0 X 10^3 Eosinophils # (Auto) 0.1 0.0-0.3 10^3/uL Basophils # (Auto) 0.0 0.0-0.1 10^3/uL Prothrombin Time 24.9 H 12.2-14.7 SEC INR Comment 2.2 H 0.8-1.4 Activated Partial Thromboplast Time 43 H 24-35 SEC Sodium Level 135 135-145 MMOL/L Potassium Level 3.7 3.6-5.0 MMOL/L Chloride Level 97 L 98-107 MMOL/L Carbon Dioxide Level 22 21-32 MMOL/L Anion Gap 16 H 5-14 MMOL/L Blood Urea Nitrogen 8 7-18 MG/DL Creatinine 0.72 0.60-1.30 MG/DL Estimat Glomerular Filtration Rate > 60 BUN/Creatinine Ratio 11 Glucose Level 145 H 70-105 MG/DL Calcium Level 9.4 8.5-10.1 MG/DL Corrected Calcium 9.1 8.5-10.1 MG/DL Total Bilirubin 0.4 0.1-1.0 MG/DL Aspartate Amino Transf (AST/SGOT) 18 5-34 U/L Alanine Aminotransferase (ALT/SGPT) 20 0-55 U/L Alkaline Phosphatase 93 40-136 U/L Troponin I < 0.30 <0.30 NG/ML C-Reactive Protein High Sensitivity 1.59 H 0.00-0.50 MG/DL Total Protein 7.1 6.4-8.2 GM/DL Albumin 4.4 3.2-4.5 GM/DL Thyroid Stimulating Hormone (TSH) 3.17 0.35-4.94 UIU/ML Free Thyroxine 0.96 0.70-1.48 NG/DL Micro Results Microbiology 04/16/18 Influenza Types A,B Antigen (JOEY) - Final, Complete My Orders Orders - GREGG CONNORS MD Albuterol/Ipra Inhalation Soln (Duoneb I (04/16/18 10:33) Cbc With Automated Diff (04/16/18 10:36) Comprehensive Metabolic Panel (04/16/18 10:36) Hs C Reactive Protein (04/16/18 10:36) Thyroid Stimulating Hormone (04/16/18 10:36) Influenza A And B Antigens (04/16/18 10:36) Saline Lock/Iv-Start (04/16/18 10:36) O2 (04/16/18 10:36) Monitor-Rhythm Ecg Trace Only (04/16/18 10:36) Chest 1 View, Ap/Pa Only (04/16/18 10:36) Free T4 (Free Thyroxine) (04/16/18 10:36) Albuterol/Ipra Inhalation Soln (Duoneb I (04/16/18 10:45) Svn Small Volume Nebulizer (04/16/18 10:36) Methylprednisolone Sod Succ (Solu-Medrol (04/16/18 10:45) Albuterol Pre-Mix Nebs (Rt) (Proventil (04/16/18 10:38) Albuterol/Ipra Inhalation Soln (Duoneb I (04/16/18 10:38) Albuterol Pre-Mix Nebs (Rt) (Proventil (04/16/18 10:45) Svn Small Volume Nebulizer (04/16/18 10:44) Troponin I (04/16/18 11:15) Ekg Tracing (04/16/18 11:15) Fentanyl Injection (Sublimaze Injection (04/16/18 11:15) Bipap (Bilevel) Set Up (04/16/18 11:19) Protime With Inr (04/16/18 11:47) Partial Thromboplastin Time (04/16/18 11:47) Medications Given in ED Vital Signs/I&O Capillary Refill : Less Than 3 Seconds Blood Pressure Mean: 106 Progress Note : Progress Note Patient was wheezing with respiratory distress on initial presentation. She was immediately given a DuoNeb treatment which did not resolve her wheezing. An hour-long nebulizer treatment was administered. Patient was still having significant wheezing and some difficulty breathing during her hour-long treatment. BiPAP was felt appropriate. She was doing better on BiPAP. Influenza screen was negative. She also complained of headache and fentanyl 50 micrograms were administered with some relief. X-ray showed no evidence of failure or pneumonia. However there was a nodular density on the right side identified. This seemed to correlate with a lesion near the right breast seen on PET scan. Patient has a resolving abscess on her lower right breast which she believes correlates with these imaging findings. Patient received Solu- Medrol 125 mg. She was stable on BiPAP at the time of admission. ECG Initial ECG Impression Date: Apr 16, 2018 Initial ECG Impression Time: 10:49 Initial ECG Rate: 97 Initial ECG Rhythm: Normal Sinus Initial ECG Intervals: Normal Comment Normal sinus rhythm with no ST elevation or depression. No abnormal intervals or axis deviation. Diagnostic Imaging Diagonstic Imaging: Xray Plain Films/CT/US/NM/MRI: chest Comments Chest x-ray viewed by me and report reviewed. See report below: NAME: LINETTE SNYDER [facility] REC#: [id number] PT STATUS: REG ER : 1955 PHYSICIAN: GREGG CONNORS MD ADMIT DATE: 04/16/18/ER Draft Date of Exam:04/16/18 CHEST 1 VIEW, AP/PA ONLY INDICATION: Cough. Epiglottis malignancy. COMPARISON: CT/PET dated 04/06/2018. FINDINGS: Single frontal radiographic view of the chest was obtained and demonstrates normal cardiac silhouette and pulmonary vasculature. Evaluation of the lung martinez demonstrates 1.6 x 1.6 cm nodular opacity within the right lower lung field. There is suggestion of smaller nodular opacity within the right suprahilar area on the right. These areas correspond to soft tissue nodular density seen on recent CT/PET. There is no focal consolidation, large effusion, nor pneumothorax. Bony structures show no acute abnormalities. IMPRESSION: 1. No evidence of failure or focal infiltrate. 2. Nodular opacities in the right lung as described above. Correlation with recent CT/PET is recommended. Dictated on workstation # [id number] Dict: 04/16/18 1145 Trans: 04/16/18 [id number] Interpreted by: MELVIN MAYNARD MD Departure Communication (Admissions) Time/Spoke to Admitting Phy: 12:05 Dr. Boland Impression Primary Impression: COPD exacerbation Disposition: ADMITTED INPATIENT Condition: Improved Admissions Decision to Admit Reason: Admit from ER (General) Decision to Admit/Date: Apr 16, 2018 Time/Decision to Admit Time: 10:45 Departure-Patient Inst. Referrals: EDWAR BUTT MD (PCP) Primary Care Physician Scripts Prednisone (Prednisone) 20 Mg Tab 20 MG PO as directed, #16 TAB Take 2 tabs each a.m. 3 day Then take 1 tab each a.m. 3 days. Then take one half tablet each a.m. 4 days. Then stop Prov: YARELIS UMANA MD 04/19/18 GREGG CONNORS MD Apr 16, 2018 12:35
--- NOTE | 2018-04-16 13:29 | History & Physical-Hospitalist ---
History of Present Illness HPI/Chief Complaint Pt is a 62yoCF with a PMH of COPD, recently diagnosed SCC of the epiglottis, pAF , hypothyroidism, and HTN who presented to the ER with CC of shortness of breath. She states her symptoms started yesterday afternoon. She is compliant with her inhalers and tried to take her rescue inhalers as well but her symptoms did not improve prompting her to seek evaluation in the ER. She was found to be in respiratory distress and quickly placed on BiPAP in the ER. She states her symptoms are improving with BiPAP. She denies nay fevers, chills, sick contact. She has not started any chemo for her cancer yet. Source: patient Date Seen 04/16/18 Time Seen by a Provider: 13:21 Attending Physician Blanche Boland MD PCP Ami Topete MD Referring Physician Date of Admission Apr 16, 2018 at 12:43 Home Medications & Allergies Home Medications Reviewed patient Home Medication Reconciliation performed by pharmacy medication reconciliations chemical engineering technician and/or nursing. Patients Allergies have been reviewed. Allergies Allergies Coded Allergies codeine (Verified Adverse Reaction, Mild, GI UPSET, 04/01/18) Past Ocgdvow-Uacabc-Negvxt Hx Past Med/Social Hx: Reviewed Nursing Past Med/Soc Hx Patient Social History Alcohol Use: Denies Use Recreational Drug Use: No Type Used: Cigarettes Recent Foreign Travel: No Contact w/other who traveled: No Recent Hopitalizations: No Recent Infectious Disease Expo: No Immunizations Up To Date Tetanus Booster (TDap): Unknown Pediatric: No Date of Pneumonia Vaccine: Mar 22, 2016 Date of Influenza Vaccine: Mar 23, 2017 Seasonal Allergies Seasonal Allergies: No Past Medical History Surgeries: Appendectomy, Open Heart Surgery, Tonsillectomy Respiratory: COPD, Pneumonia, Sleep Apnea Currently Using CPAP: Yes Currently Using BIPAP: No Cardiac: Atrial Fibrillation, High Cholesterol, Hypertension Neurological: Headaches /Migraines Reproductive: No Sexually Transmitted Disease: No HIV/AIDS: No Female Reproductive Disorders: Denies Musculoskeletal: Chronic Back Pain HEENT: Cataract Loss of Vision: Bilateral Hearing Impairment: Denies Cancer: Oral (epligottis) Did You Recieve Any Treatments: No Psychosocial: Sleep Difficulties, Depression Skin/Integumentary: Recent Skin Changes History of Blood Disorders: No Adverse Reaction to Blood Cook: No (N/A) Family History Reviewed Nursing Family Hx CANCER 19 FATHER CANCER 19 FATHER Dementia G8 BROTHER (ENCEPALITIS ) FHx: cancer Hypertension 19 MOTHER Thyroid disease 19 MOTHER Review of Systems Constitutional: No chills, No fever EENTM: No blurred vision, No double vision, No nose congestion, No throat pain Respiratory: cough; No dyspnea on exertion; short of breath, wheezing Cardiovascular: No chest pain, No edema, No palpitations Gastrointestinal: No abdominal pain, No constipation, No diarrhea, No nausea, No vomiting Genitourinary: No dysuria, No frequency Musculoskeletal: No joint pain, No muscle pain Skin: No lesions, No rash Psychiatric/Neurological: Denies Headache, Denies Numbness, Denies Tingling Physical Exam Physical Exam Vital Signs Vital Signs - First Documented Capillary Refill : Less Than 3 Seconds Height, Weight, BMI Height: 5'4.00" Weight: 200lbs. 7.0oz. 90.970858vw; 34.2 BMI Method:Stated General Appearance: No Apparent Distress, WD/WN HEENT: PERRL/EOMI, Moist Mucous Membranes Neck: Non Tender, Supple Respiratory: Decreased Breath Sounds, Wheezing (scant, minimal air movement), Other (on BiPAP) Cardiovascular: Regular Rate, Rhythm, No Murmur Gastrointestinal: Normal Bowel Sounds, Non Tender, Soft Extremity: Normal Capillary Refill, No Calf Tenderness Neurologic/Psychiatric: Alert, Oriented x3, Normal Mood/Affect Skin: Normal Color, Warm/Dry Results Results/Procedures Labs Laboratory Tests 04/16/18 10:45 Patient resulted labs reviewed. Imaging: Reviewed Imaging Report Assessment/Plan Admission Diagnosis COPD Exacerbation Admission Status: Inpatient Order (span 2 midnights) Reason for Inpatient Admission: Failed outpatient management, on BiPAP, needs IV steroids, will likely take more than two days to stabilize for DC Diagnosis/Problems Diagnosis/Problems (1) Acute respiratory distress Assessment & Plan: Currently on BiPAP Due to COPD exacerbation Pulm consulted, appreciate recs (2) COPD exacerbation Status: Acute Assessment & Plan: Pulm consulted, appreciate recs Continue steroids MAT protocol Continue home inhalers (3) Squamous cell cancer of epiglottis Assessment & Plan: Recently diagnosed Follows with Dr Casey Has not yet started radiation (4) Hypothyroid Status: Chronic Assessment & Plan: Continue home med Qualifiers: Hypothyroidism type: acquired Qualified Codes: E03.9 - Hypothyroidism, unspecified (5) Atrial fibrillation Status: Chronic Assessment & Plan: Rate well controlled Resume home meds INR therapeutic Qualifiers: Atrial fibrillation type: paroxysmal Qualified Codes: I48.0 - Paroxysmal atrial fibrillation (6) Essential (primary) hypertension Assessment & Plan: BP well controlled BLANCHE BOLAND MD Apr 16, 2018 13:29
--- OUTSIDE RECORDS SUMMARY | 2018-04-16 13:44 | XMS REPORT | Clinical Summary ---
Author Author [facility] Organization [facility] Address Unknown Phone Unavailable Care Team Providers Care Drywall Sander Name Role Phone Ami Topete MD PCP Source Comments Some departments are not documenting in the electronic medical record. If you do not see the information that you expected, contact Release of Information in the Health Information Management department at [phone] for further assistance in locating additional records.[facility] Allergies Active Allergy Reactions Severity Noted [...] Overview: Added automatically from request for surgery [id number] Pulmonary nodules 06/18/2017 Overview: - CT Chest [...]
--- OUTSIDE RECORDS SUMMARY | 2018-04-16 13:44 | XMS REPORT | Encounter Summary ---
Author Author [facility] Organization [facility] Address Unknown Phone Unavailable Care Team Providers Care Clinical Studies Specialist Name Role Phone Ami Topete MD PCP Reason for Visit * Reason Comments Results ECHO Encounter Details Date Type Department Care Team Description 04/02/2018 Telephone Cardiovascular Medicine Jelly Lipscomb Results ( ECHO) [address] [place] [address] Social History Tobacco Use Types [...]
--- OUTSIDE RECORDS SUMMARY | 2018-04-16 13:44 | XMS REPORT | Clinical Summary ---
Author Author [facility] Organization [facility] Address Unknown Phone Unavailable Care Team Providers Care Flexboard Operator Name Role Phone FreeburgEz leo PCP Allergies Active Allergy Reactions Severity [...] Taken Blood Pressure 114/56 08/22/2014 3:19 PM ELECTRIC RELAY TESTER Pulse 79 08/22/2014 3:19 PM ELECTRIC RELAY TESTER Temperature 36 C (96.8 F) 08/22/2014 11:08 AM ELECTRIC RELAY TESTER Respiratory Rate 20 08/22/2014 3:19 PM ELECTRIC RELAY TESTER Oxygen Saturation 98% 08/22/2014 3:19 PM ELECTRIC RELAY TESTER Inhaled Oxygen - - Concentration Weight 90.7 kg (200 lb) 08/22/2014 11:08 AM ELECTRIC RELAY TESTER Height 162.6 cm (5' 4") 08/22/2014 11:08 AM ELECTRIC RELAY TESTER Body Mass Index 34.33 08/22/2014 11:08 AM ELECTRIC RELAY TESTER Plan of Treatment Not on file Results Not on filefrom Last 3 Months
--- OUTSIDE RECORDS SUMMARY | 2018-04-16 13:45 | XMS REPORT | Encounter Summary ---
Author Author [facility] Organization [facility] Address Unknown Phone Unavailable Care Team Providers Care Linseed Oil Boiler Name Role Phone Ami Topete MD PCP Reason for Referral * Test Status Reason Specialty Diagnoses / Referred By Referred To Procedures Contact Contact No Auth Needed Cardiology Diagnoses Odell De Oliveira, Cvm Ovpk Echo/Pv Chronic atrial [facility] [place] fibrillation [address] CPAP [place] [address] [place], [place] rocedures [id number] 2-D + DOPPLER Phone: Phone: ECHOCARDIOGRAM [phone] [place] [facility] Fax: R-T 2D [phone] W/WOM-MODE COMPL SPEC&COLR D * Test Status Reason Specialty Diagnoses / Referred By Referred To Procedures Contact Contact No Auth Needed Cardiology Diagnoses Odell De Oliveira, Cvm Ovpk Echo/Pv Chronic atrial [facility] [place] fibrillation [address] CPAP [place] [address] [place], [place] rocedures [phone] 2-D + DOPPLER Phone: Phone: ECHOCARDIOGRAM [phone] [place] [facility] Fax: R-T 2D [phone] W/WOM-MODE COMPL SPEC&COLR D Reason for Visit * Test Status Reason Specialty Diagnoses / Referred By Referred To Procedures Contact Contact No Auth Needed Cardiology Diagnoses Odell De Oliveira M, Cvm Ovpk Echo/Pv Chronic atrial MD [facility] [place] fibrillation [address] CPAP [place] [address] [place], [place] rocedures [id number] 2-D + DOPPLER Phone: Phone: ECHOCARDIOGRAM [phone] [place] [facility] Fax: R-T 2D [phone] W/WOM-MODE COMPL SPEC&COLR D Encounter Details Date Type Department Care Team Description 03/25/2018 [facility] Cardiovascular Medicine Taylor Bryant MD Encounter [facility] [place] [address] [place] [address] [place] [address] [place] [address] [phone] Social History Tobacco Use Types Packs/Day Years [...]
--- OUTSIDE RECORDS SUMMARY | 2018-04-16 13:45 | XMS REPORT | Encounter Summary ---
Author Author [facility] Address Unknown Phone Unavailable Care Team Providers Care Assistant Cross Country Coach Name Role Phone Ami Topete MD PCP Reason for Visit * Reason Comments Follow Up cardiac clearance requested-needs ECHO Encounter Details Date Type Department Care Team Description 03/17/2018 Telephone Cardiovascular Medicine Sarita Moeller RN Follow Up (cardiac [facility] [id number] clearance requested-needs [address] ECHO) [place] [address] Social History Tobacco Use Types Packs/Day Years [...] be completed closer to home. I called [facility] in [place], [place] and [facility] in [place], [place] and neither had openings for ECHO until the middle of March. Offered to get patient in tomorrow for an ECHO at the [facility]. Pt declined that offer and stated that she does not drive downtown because she gets confused and ends up getting lost. First available appointment at [facility] offered. Pt decided to schedule on 03/25 at 10am. Patient's surgery was initially scheduled for that day, she will have to reschedule. Pt verbalized understanding and agreed to plan. No questions or concerns at this time. I called TOMI Gomes with the [facility]. Reviewed above information with her. She stated that she will discuss with the surgeon and move the surgery to a later date. We will fax over cardiac clearance when the ECHO has been read and BARREL RIFLER HOOK has given the ok. Eliseo verbalized understanding, no additional questions at this time. * Telephone Encounter - Sarita Moeller RN - 03/17/2018 8:41 AM CDT Called patient to discuss BARREL RIFLER HOOK recommendations of completing ordered ECHO prior to providing cardiac clearance for surgery. No authorization to leave detailed message on chart. LM asking patient to call back office, phone number provided. Called TOMI Gomes ([phone]) at the [facility] to notify her that patient must complete [...] epiglottis Date of Surgery: 03/25/18 @ [facility] in [place], [place] Coumadin (for chronic A-Fib) managed by PCP- they will provide the hold plan CHADS-VASC:1 (gender) ECHO: ordered by R 07/2017; not completed Stress Test: ordered by R 07/2017; not completed 3L O2 via [place] at baseline Requesting cardiac clearance for surgery. in this encounter Plan of Treatment Date Type Specialty Care Team Description 03/04/2018 Procedure Pass Pulmonology as of this encounter Visit Diagnoses Not on filein this encounter
--- OUTSIDE RECORDS SUMMARY | 2018-04-16 13:45 | XMS REPORT | Encounter Summary ---
Author Author [facility] Organization [facility] Address Unknown Phone Unavailable Care Team Providers Care Ground Worker Name Role Phone Ami Topete MD PCP Reason for Visit * Reason Comments Appointment Encounter Details Date Type Department Care Team Description 03/10/2018 Telephone [facility] Ashley Wolff MD Appointment Physicians - Internal [address] [facility] Medicine [address] [place] [address] [facility] [phone] [address] [facility] [place] [address] Social History Tobacco Use Types [...] - 03/10/2018 11:22 AM CDT Routing to [facility] to schedule PFT's, CT chest and follow [...]
--- OUTSIDE RECORDS SUMMARY | 2018-04-16 13:45 | XMS REPORT | Encounter Summary ---
Author Author [facility] Organization [facility] Address Unknown Phone Unavailable Care Team Providers Care Bank Courier Name Role Phone Ami Topete MD PCP Reason for Visit * Reason Comments Anticoagulation PCP to manage warfarin Encounter Details Date Type Department Care Team Description 03/04/2018 Telephone Cardiovascular Medicine Yanna Roe RN Anticoagulation (PCP to [place] [address] manage warfarin) [address] [place] [address] Social History Tobacco Use Types [...] Encounter - Yanna Roe RN - 03/04/2018 1:53 PM CDT Returned call to [facility] and spoke with TOMI Ambriz Their office will continue to manage pts Warfarin. I have asked that they send refills for pt. * Telephone Encounter - Yanna Roe RN - 03/04/2018 1:52 PM CDT ----- Message from Jelly Lipscomb sent at 03/04/2018 12:41 PM CDT ----- Regarding: FURNACE FILLER-Returning our call Rhonda with [facility] calling back. Call back is [phone] in this encounter Plan of Treatment Date Type Specialty Care Team Description 03/04/2018 Procedure Pass Pulmonology as of this encounter Visit Diagnoses Not on filein this encounter
--- OUTSIDE RECORDS SUMMARY | 2018-04-16 13:45 | XMS REPORT | Encounter Summary ---
Author Author [facility] Address Unknown Phone Unavailable Care Team Providers Care Hemodialysis Technician Name Role Phone Ami Topete MD PCP Reason for Visit * Reason Comments Error Encounter Details Date Type Department Care Team Description 03/17/2018 Telephone Cardiovascular Medicine Sarita Moeller RN [facility] [place] [address] Social History Tobacco Use Types Packs/Day Years [...]
--- OUTSIDE RECORDS SUMMARY | 2018-04-16 13:45 | XMS REPORT | Encounter Summary ---
Author Author [facility] Organization [facility] Address Unknown Phone Unavailable Care Team Providers Care Food Safety Coordinator Name Role Phone Page Peace CHAR PULLER PCP Unavailable Ami Topete MD PCP Encounter Details Date Type Department Care Team Description 09/10/2017 Procedure Pass [facility] Radiology [address] [facility] MED OFFICE [address] 2ND FLOOR [place], [place] [id number] Social History Tobacco Use Types Packs/Day Years [...]
--- OUTSIDE RECORDS SUMMARY | 2018-04-16 13:45 | XMS REPORT | Encounter Summary ---
Author Author [facility] Organization [facility] Address Unknown Phone Unavailable Care Team Providers Care Geriatric Physical Therapist Name Role Phone Ami Topete MD PCP Reason for Visit * Reason Comments Cardiac Clearance Encounter Details Date Type Department Care Team Description 03/30/2018 Telephone Cardiovascular Medicine Yanna Roe RN Cardiac Clearance [facility] [place] [address] [place] [address] [place] [address] Social History Tobacco Use Types Packs/Day Years [...] original. Echo completed 03/25 and reviewed with BOAT OUTBOARD ENGINE MECHANIC. Patient has EF 55% w/o regional WMA. Reviewed with Dr. Bryant via phone and received verbal order that patient is at low risk for cardiovascular perioperative complications for her scheduled direct laryngoscopy with epiglottis biopsy on 04/[address] Bliss. Notified patient and faxed requested information along with this note to Eliseo. Anticoagulation is being managed by pts PCP. BOAT OUTBOARD ENGINE MECHANIC- patient Received: Today Message Contents Mary Mcfarland LPN P [facility] Nurse Ep BRANDON on triage line from Eliseo with Dr. Francis Bliss office # [phone]. Said that she faxed request for CC on some of BOAT OUTBOARD ENGINE MECHANIC patients. Did we get the fax, if so, fax CC to # [phone]. She did not leave patients names. * Telephone Encounter - Yanna Roe RN - 03/30/2018 9:56 AM CDT ----- Message from Mary Mcfarland LPN sent at 03/30/2018 9:42 AM CDT ----- Regarding: BOAT OUTBOARD ENGINE MECHANIC- CC and Echo results VM from patient on triage line. She is to have surgery this and needs CC and Echo results. in this encounter Plan of Treatment Date Type Specialty Care Team Description 03/04/2018 Procedure Pass Pulmonology as of this encounter Visit Diagnoses Not on filein this encounter
--- OUTSIDE RECORDS SUMMARY | 2018-04-16 13:45 | XMS REPORT | Encounter Summary ---
Author Author [facility] Organization [facility] Address Unknown Phone Unavailable Care Team Providers Care Mixer Crane Operator Name Role Phone Page Peace VOLLEYBALL ASSEMBLER PCP Unavailable Reason for Visit * Reason Comments Medication Refill Encounter Details Date Type Department Care Team Description 02/09/2018 Telephone Cardiovascular Medicine Brianne Bermudez, atomic fuel assembler Refill [address] [place] [address] Social History Tobacco Use Types [...]
--- OUTSIDE RECORDS SUMMARY | 2018-04-16 13:45 | XMS REPORT | Encounter Summary ---
Author Author [facility] Organization [facility] Address Unknown Phone Unavailable Care Team Providers Care Dynamicist Name Role Phone Ami Topete MD PCP Reason for Referral * Radiology Services Status Reason Specialty Diagnoses / Referred By Referred To Procedures Contact Contact Closed Radiology Diagnoses Ashley Wolff Mob Ct Pulmonary [address] nodules [address] FLOOR rocedures [address] [place], [place] [address] [place] [address] Phone: * Radiology Services Status Reason Specialty Diagnoses / Referred By Referred To Procedures Contact Contact Closed Radiology Diagnoses Ashley Wolff Mob Ct Pulmonary [address] nodules [address] FLOOR rocedures [address] [place], [place] [address] [place] [address] Phone: Reason for Visit * Radiology Services Status Reason Specialty Diagnoses / Referred By Referred To Procedures Contact Contact Closed Radiology Diagnoses Ashley Wolff Mob Ct Pulmonary [address] nodules [address] FLOOR rocedures [address] [place], [place] [address] [place] [address] Phone: Encounter Details Date Type Department Care Team Description 03/04/2018 Hospital [facility] Ashley Wolff MD Encounter Hospital Radiology [address] [facility] [place] [address] [place] [address] 2ND FLOOR [phone] [place] [address] [phone] Social History Tobacco Use Types Packs/Day Years [...] 2017 FINDINGS: Evaluation of the mediastinum and okri, including the vasculature and for lymphadenopathy, is [...]
--- OUTSIDE RECORDS SUMMARY | 2018-04-16 13:45 | XMS REPORT | Encounter Summary ---
Author Author [facility] Organization [facility] Address Unknown Phone Unavailable Care Team Providers Care Dental Floss Packer Name Role Phone Ami Topete MD PCP Reason for Referral * (Routine) Status Reason Specialty Diagnoses / Referred By Referred To Procedures Contact Contact New Request Procedures Taylor Bryant MD CARDIOLOGY [address] [place] [address] * Status Reason Specialty Diagnoses / Referred By Referred To Procedures Contact Contact New Request Procedures Odell De Oliveira, REQUEST FOR CARDIOLOGY [address] [place] [address] Reason for Visit * Reason Comments Atrial fibrillation Previously saw YMR * Status Reason Specialty Diagnoses / Referred By Referred To Procedures Contact Contact New Request Procedures Odell De Oliveira, REQUEST FOR CARDIOLOGY [address] [place] [address] Encounter Details Date Type Department Care Team Description 03/04/2018 Office Visit Cardiovascular Medicine Odell De Oliveira MD Atrial fibrillation [place] [address] (Previously saw YMR) [address] [place] [address] [place] [address] [phone] Taylor Ponce MD [address] [place] [address] [phone] Social History Tobacco Use Types Packs/Day Years [...] to pharmacy To schedule an appointment call [phone]. In order to provide you the best care possible we ask that you follow up as below: For non-urgent questions please contact us through your [employer] account. For all medication refills please contact your pharmacy or send a request through [employer]. For all questions that may need to be addressed urgently please call the nursing triage voicemail at [phone] Thursday - Thursday 8-5 only. Please leave [...] I have previously cared for her now [id number]. Patient tells me that she has had [...] 07/02/2017 Added automatically from request for surgery [id number] Pulmonary nodules 06/18/2017 - CT Chest 04/2017 [...]
--- OUTSIDE RECORDS SUMMARY | 2018-04-16 13:45 | XMS REPORT | Encounter Summary ---
Author Author [facility] Organization [facility] Address Unknown Phone Unavailable Care Team Providers Care Television Writer Name Role Phone Ami Topete MD PCP Reason for Referral * Radiology Services (Routine) Status Reason Specialty Diagnoses / Referred By Referred To Procedures Contact Contact New Request Radiology Diagnoses Ashley Wolff, Pulmonary MD nodules [address] [place], [place] [address] * Consult, Test & Treat (Routine) Status Reason Specialty Diagnoses / Referred By Referred To Procedures Contact Contact New Request Specialty Diagnoses Ashley Wloff, Pulmonary Function Services Chronic MD [place] [address] [facility] Required obstructive [address] disease, [place] [address] [place], [place] [address] type (HCC) [address] Phone: Scheduling Instructions In 6 months with follow up Reason for Visit * Reason Comments Breathing Problem Encounter Details Date Type Department Care Team Description 03/04/2018 Office Visit [facility] Ashley Wolff MD Chronic obstructive Physicians - Internal [address] pulmonary disease, Medicine [address] unspecified COPD [place] [address] (HCC) (Primary Dx); [address] [address] 5A [phone] Pulmonary nodules; [address] MARVIN on CPAP; [place], [place] Centrilobular emphysema [address] ([facility]); [phone] Chronic hypoxemic respiratory failure ([facility]) Social History Tobacco Use Types Packs/Day Years [...] Maya RN. She can be reached at [phone]. Please contact my nurse with any signs and symptoms of worsening productive cough with thick secretions, blood in sputum, chest tightness/pain, shortness of breath, fever, chills, night sweats, or any questions or concerns. For refills on medications, please have your pharmacy fax a refill authorization request form to our office at [phone]. Please allow at least 3 business days for refill requests. For urgent issues after business hours/weekends/holidays call [phone] and request for the waistband setter to be paged. in this encounter Progress [...] block without stopping. She recently saw the caregiver assisted living today. She did have an EKG today. [...]
--- OUTSIDE RECORDS SUMMARY | 2018-04-16 13:46 | XMS REPORT | Continuity of Care Document ---
Author Author [facility] Organization [facility] Address Unknown Phone Unavailable Allergies Active Description Code Type Severity Reaction Onset Reported/Identified Relationship to Patient Clinical Status Yes No Known Drug Allergies [id number] Drug Allergy Unknown N/A 10/18/2015 Yes codeine [id number] Drug Allergy Mild GI UPSET 04/01/2018 Medications [...] ON SUPPLEMENTAL OXYGEN 12/05/2015 BAIMA, PALOMO L TURBINE OPERATOR Ot G47.33 OBSTRUCTIVE SLEEP APNEA (ADULT) (PEDIATR 12/05/2015 BAIMA, PALOMO L TURBINE OPERATOR Ot I48.92 UNSPECIFIED ATRIAL FLUTTER 12/05/2015 BAIMA, PALOMO L TURBINE OPERATOR Ot R06.00 DYSPNEA, UNSPECIFIED 12/05/2015 BAIMA, PALOMO L TURBINE OPERATOR Ot Z72.0 TOBACCO USE 12/18/2015 BAIMA, PALOMO L TURBINE OPERATOR Ot G47.33 OBSTRUCTIVE SLEEP APNEA (ADULT) (PEDIATR 12/18/2015 BAIMA, PALOMO L TURBINE OPERATOR Ot I48.92 UNSPECIFIED ATRIAL FLUTTER 12/18/2015 BAIMA, PALOMO L TURBINE OPERATOR Ot R06.00 DYSPNEA, UNSPECIFIED 12/18/2015 BAIMA, PALOMO L TURBINE OPERATOR Ot Z72.0 TOBACCO USE 02/20/2016 BAIMA, PALOMO L TURBINE OPERATOR Ot G47.33 OBSTRUCTIVE SLEEP APNEA (ADULT) (PEDIATR 02/20/2016 BAIMA, PALOMO L TURBINE OPERATOR Ot I48.92 UNSPECIFIED ATRIAL FLUTTER 02/20/2016 BAIMA, PALOMO L TURBINE OPERATOR Ot R42 DIZZINESS AND GIDDINESS 02/20/2016 BAIMA, PALOMO L TURBINE OPERATOR Ot Z72.0 TOBACCO USE 03/07/2016 BAIMA, PALOMO L TURBINE OPERATOR Ot G47.33 OBSTRUCTIVE SLEEP APNEA (ADULT) (PEDIATR 03/07/2016 BAIMA, PALOMO L TURBINE OPERATOR Ot I48.92 UNSPECIFIED ATRIAL FLUTTER 03/07/2016 BAIMA, PALOMO L TURBINE OPERATOR Ot R42 DIZZINESS AND GIDDINESS 03/07/2016 BAIMA, PALOMO L TURBINE OPERATOR Ot Z72.0 TOBACCO USE 08/24/2016 BAIMA, PALOMO L TURBINE OPERATOR Ot G47.33 OBSTRUCTIVE SLEEP APNEA (ADULT) (PEDIATR 08/24/2016 BAIMAPALOMO L TURBINE OPERATOR Ot I48.92 UNSPECIFIED ATRIAL FLUTTER 08/24/2016 BAIMAPHUONGPALOMO L TURBINE OPERATOR Ot R06.00 DYSPNEA, UNSPECIFIED 08/24/2016 BAIMA, PALOMO L TURBINE OPERATOR Ot Z72.0 TOBACCO USE 08/24/2016 BAIMA, PALOMO L TURBINE OPERATOR Ot G47.33 OBSTRUCTIVE SLEEP APNEA (ADULT) (PEDIATR 08/24/2016 BAIMA PALOMO L TURBINE OPERATOR Ot I48.92 UNSPECIFIED ATRIAL FLUTTER 08/24/2016 BAIMA PALOMO L TURBINE OPERATOR Ot R42 DIZZINESS AND GIDDINESS 08/24/2016 BAIMA PALOMO L TURBINE OPERATOR Ot Z72.0 TOBACCO USE 08/28/2016 YARELIS UMANA [...] INDEX (BMI) 35.0-35.9, ADULT 03/18/2018 PALOMO ANDINO TURBINE OPERATOR Ot G47.33 OBSTRUCTIVE SLEEP APNEA (ADULT) (PEDIATR 03/18/2018 BAIMAPALOMO L TURBINE OPERATOR Ot I48.92 UNSPECIFIED ATRIAL FLUTTER 03/18/2018 BAIMA, PALOMO L TURBINE OPERATOR Ot R06.00 DYSPNEA, UNSPECIFIED 03/18/2018 BAIMA, PALOMO L TURBINE OPERATOR Ot Z72.0 TOBACCO USE 03/18/2018 BAIMA, PALOMO L TURBINE OPERATOR Ot G47.33 OBSTRUCTIVE SLEEP APNEA (ADULT) (PEDIATR 03/18/2018 BAIMA, PALOMO L TURBINE OPERATOR Ot I48.92 UNSPECIFIED ATRIAL FLUTTER 03/18/2018 BAIMA, PALOMO L TURBINE OPERATOR Ot R42 DIZZINESS AND GIDDINESS 03/18/2018 BAIMA, PALOMO L TURBINE OPERATOR Ot Z72.0 TOBACCO USE 03/22/2018 BAIMA, PALOMO L TURBINE OPERATOR Ot G47.33 OBSTRUCTIVE SLEEP APNEA (ADULT) (PEDIATR 03/22/2018 BAIMA, PALOMO L TURBINE OPERATOR Ot I48.92 UNSPECIFIED ATRIAL FLUTTER 03/22/2018 BAIMA, PALOMO L TURBINE OPERATOR Ot R06.00 DYSPNEA, UNSPECIFIED 03/22/2018 BAIMA, PALOMO L TURBINE OPERATOR Ot Z72.0 TOBACCO USE 03/22/2018 BAIMA, PALOMO L TURBINE OPERATOR Ot G47.33 OBSTRUCTIVE SLEEP APNEA (ADULT) (PEDIATR 03/22/2018 BAIMA, PALOMO L TURBINE OPERATOR Ot I48.92 UNSPECIFIED ATRIAL FLUTTER 03/22/2018 BAIMA, PALOMO L TURBINE OPERATOR Ot R42 DIZZINESS AND GIDDINESS 03/22/2018 BAIMA, PALOMO L TURBINE OPERATOR Ot Z72.0 TOBACCO USE 03/22/2018 DUSTIN WAGNER [...] U 04/06/2018 DUSTIN WAGNER MD, Ot Z79.01 UNDER TRIMMER (CURRENT) USE OF ANTICOAGULANT 04/06/2018 DUSTIN WAGNER MD, Ot Z79.899 OTHER UNDER TRIMMER (CURRENT) DRUG THERAPY 04/06/2018 DUSTIN WAGNER MD, [...] or blood by coagulation assay 1.5 0.8-1.4 Influenza virus A and B antigen detection - 04/16/18 10:34 FLU RESULT NEGATIVE FOR INFLUENZA A AND B ANTIGENS BY NE NR Complete blood count (CBC) with automated white blood cell (WBC) differential - 04/16/18 10:45 Blood leukocytes automated count (number/volume) 10.0 10*3/uL 4.3-11.0 Blood erythrocytes automated count (number/volume) 4.33 10*6/uL 4.35-5.85 Venous blood hemoglobin measurement (mass/volume) 12.7 g/dL 11.5-16.0 Blood hematocrit (volume fraction) 39 % 35-52 Automated erythrocyte mean corpuscular volume 89 [foz_us] 80-99 Automated erythrocyte mean corpuscular hemoglobin (mass per erythrocyte) 29 pg 25-34 Automated erythrocyte mean corpuscular hemoglobin concentration measurement ( mass/volume) 33 g/dL 32-36 Automated erythrocyte distribution width ratio 13.8 % 10.0-14.5 Automated blood platelet count (count/volume) 237 10*3/uL 130-400 Automated blood platelet mean volume measurement 9.7 [foz_us] 7.4-10.4 Automated blood neutrophils/100 leukocytes 79 % 42-75 Automated blood lymphocytes/100 leukocytes 12 % 12-44 Blood monocytes/100 leukocytes 8 % 0-12 Automated blood eosinophils/100 leukocytes 1 % 0-10 Automated blood basophils/100 leukocytes 0 % 0-10 Blood neutrophils automated count (number/volume) 7.9 10*3 1.8-7.8 Blood lymphocytes automated count (number/volume) 1.2 10*3 1.0-4.0 Blood monocytes automated count (number/volume) 0.8 10*3 0.0-1.0 Automated eosinophil count 0.1 10*3/uL 0.0-0.3 Automated blood basophil count (count/volume) 0.0 10*3/uL 0.0-0.1 Comprehensive metabolic panel - 04/16/18 10:45 Serum or plasma sodium measurement (moles/volume) 135 mmol/L 135-145 Serum or plasma potassium measurement (moles/volume) 3.7 mmol/L 3.6-5.0 Serum or plasma chloride measurement (moles/volume) 97 mmol/L 98-107 Carbon dioxide 22 mmol/L 21-32 Serum or plasma anion gap determination (moles/volume) 16 mmol/L 5-14 Serum or plasma urea nitrogen measurement (mass/volume) 8 mg/dL 7-18 Serum or plasma creatinine measurement (mass/volume) 0.72 mg/dL 0.60-1.30 Serum or plasma urea nitrogen/creatinine mass ratio 11 NRG Serum or plasma creatinine measurement with calculation of estimated glomerular filtration rate > NRG Serum or plasma glucose measurement (mass/volume) 145 mg/dL 70-105 Serum or plasma calcium measurement (mass/volume) 9.4 mg/dL 8.5-10.1 Serum or plasma total bilirubin measurement (mass/volume) 0.4 mg/dL 0.1-1.0 Serum or plasma alkaline phosphatase measurement (enzymatic activity/volume) 93 U/L 40-136 Serum or plasma aspartate aminotransferase measurement (enzymatic activity/ volume) 18 U/L 5-34 Serum or plasma alanine aminotransferase measurement (enzymatic activity/volume ) 20 U/L 0-55 Serum or plasma protein measurement (mass/volume) 7.1 g/dL 6.4-8.2 Serum or plasma albumin measurement (mass/volume) 4.4 g/dL 3.2-4.5 CALCIUM CORRECTED 9.1 mg/dL 8.5-10.1 THYROID STIMULATING HORMONE - 04/16/18 10:45 THYROID STIMULATING HORMONE 3.17 u[iU]/mL 0.35-4.94 Serum or plasma thyroxine (T4) free measurement (mass/volume) - 04/16/18 10:45 Serum or plasma thyroxine (T4) free measurement (mass/volume) 0.96 ng/dL 0.70-1.48 Serum or plasma C reactive protein measurement (mass/volume) - 04/16/18 10:45 Serum or plasma C reactive protein measurement (mass/volume) 1.59 mg /dL 0.00-0.50 Serum or plasma troponin i.cardiac measurement (mass/volume) - 04/16/18 10:45 Serum or plasma troponin i.cardiac measurement (mass/volume) < ng/ mL <0.30 PT panel in platelet poor plasma by coagulation assay - 04/16/18 10:45 Prothrombin time (PT) in platelet poor plasma by coagulation assay 24.9 s 12.2-14.7 INR in platelet poor plasma or blood by coagulation assay 2.2 0.8-1.4 Activated partial thromboplastin time (aPTT) in platelet poor plasma bycoagulation assay - 04/16/18 10:45 Activated partial thromboplastin time (aPTT) in platelet poor plasma bycoagulation assay 43 s 24-35 Encounters ACCT No. Visit Date/Time Discharge Status Pt. Type Provider Facility Loc./Unit Complaint [id number] 04/06/2018 07:58:00 04/06/2018 23:59:59 CLS Outpatient DUSTIN WAGNER MD [facility] TSCC OT LARYNGEAL SURFACE OF EPIGLOTTIS [id number] 04/01/2018 06:33:00 04/01/2018 10:30:00 DIS Outpatient DUSTIN WAGNER MD [facility] SDC EPIGLOTTIC LESION [id number] 03/22/2018 12:11:00 03/22/2018 16:00:00 DIS Outpatient BERNARD TELLO, DUSTIN Lamb [facility] PREOP EPIGLOTTIC LESION [id number] 08/24/2016 03:45:00 08/28/2016 13:58:00 DIS Inpatient LYNDSAY TELLO, YARELIS Ware [facility] 4TH AECOPD; PNEUMONIA [id number] 02/19/2016 15:10:00 02/19/2016 23:59:59 CLS Outpatient PALOMO ANDINO [facility] LAB POSTURAL DIZZINESS, DALE ON CPAP [id number] 12/04/2015 09:21:00 12/04/2015 23:59:59 CLS Outpatient PALOMO ANDINO [facility] CARD PAROXYSMAL AFIB, DYSPNEA DALE ON CPAP [id number] 10/18/2015 15:21:00 10/21/2015 13:13:00 DIS Inpatient SUSSY PERES DO [facility] 4TH COPD,AE [id number] 04/16/2018 11:01:00 Document Registration [id number] 04/14/2018 08:16:00 ACT Outpatient ANTONIA TELLO, FIORELLA Guillen [facility] ONC
[2018-04-16] MEDS ORDERED: NICOTINE 7 MG (NICODERM) PATCH TD NR (14:45)
[2018-04-16 14:57] VITALS: BP 146/56
[2018-04-16] MEDS ORDERED: CATHETER FLUSH 10 ML SYR IV PRN (15:00)
[2018-04-16 15:15] VITALS: BP 113/56
[2018-04-16] MEDS ORDERED: WARF6TAB49 PO (15:15)
[2018-04-16] MEDS ORDERED: DILT180C PO (15:15)
[2018-04-16] MEDS ORDERED: RT-ALBUTEROL/IPRATROPIUM 3 ML (DUONEB) VIAL INH PRN (15:15)
[2018-04-16] MEDS ORDERED: IPRA3AMP31 NEB (15:15)
[2018-04-16] MEDS ORDERED: FLUT1BLS INH (15:15)
[2018-04-16] MEDS ORDERED: RT-ALBUINH IH (15:15)
--- NOTE | 2018-04-16 15:15 | Pulmonary Consultation ---
History of Present Illness History of Present Illness Date of Consultation 04/16/18 15:10 Time Seen by Provider: 15:10 Date of Admission History of Present Illness 62yo with hx of COPD and recent dx of SCC of epiglottis (not started on chemo yet), Afib, hypothyroid presented to ED secondary to worsening SOB. Upon ED arrival pt was placed on BiPAP. No f/NS/C. Allergies and Home Medications Allergies Coded Allergies: codeine (Verified Adverse Reaction, Mild, GI UPSET, 04/01/18) Home Medications Albuterol Sulfate 1 Puff Puff, 2 PUFF IH Q6H PRN for SHORTNESS OF BREATH, ( Reported) 1 PUFF = 90 MCG Citalopram Hydrobromide 20 Mg Tablet, 20 MG PO HS, (Reported) Diltiazem HCl 180 Mg Cap.er.24h, 180 MG PO DAILY, (Reported) Diphenhydramine HCl 50 Mg Capsule, 50 MG PO HS, (Reported) Fluticasone/Vilanterol 1 Each Blst.w.dev, 1 PUFF IH DAILY, (Reported) Ipratropium/Albuterol Sulfate 3 Ml Ampul.neb, 3 ML NEB Q6H, (Reported) Levalbuterol HCl 1.25 Mg/3 Ml Vial.neb, 1.25 MG NEB Q6H PRN for SHORTNESS OF BREATH, (Reported) Levothyroxine Sodium 50 Mcg Tablet, 50 MCG PO DAILY, (Reported) Nicotine 1 Each Patch.td24, 14 MG TD DAILY, (Reported) Prednisone 20 Mg Tab, 20 MG PO as directed Take 2 tabs each a.m. 3 day Then take 1 tab each a.m. 3 days. Then take one half tablet each a.m. 4 days. Then stop Prescribed by: YARELIS UMANA on 04/19/18 1131 Tiotropium [place] 4 Gm Mist.inhal, 2 PUFF IH DAILY, (Reported) Warfarin Sodium 2 Mg Tablet, 2 MG PO Sa, (Reported) Warfarin Sodium 6 Mg Tablet, 6 MG PO SuMoTuWeThFr, (Reported) Past Qseqiqw-Akjxfi-Mhmjvg Hx Past Med/Social Hx: Reviewed Nursing Past Med/Soc Hx Patient Social History Alcohol Use: Denies Use Recreational Drug Use: No Smoking Status: Current Everyday Smoker Type Used: Cigarettes Recent Foreign Travel: No Contact w/Someone Who Travel: No Recent Infectious Disease Expo: No Recent Hopitalizations: No Immunizations Up To Date Tetanus Booster (TDap): Unknown PED Vaccines UTD: No Date of Pneumonia Vaccine: Mar 12, 2017 Date of Influenza Vaccine: Mar 23, 2017 Seasonal Allergies Seasonal Allergies: No Past Medical History Surgeries: Yes (HEART SURGERY WHEN 5 YRS OLD) Appendectomy, Open Heart Surgery, Tonsillectomy Respiratory: Yes (O2 3L NC AT ALL TIMES) Sleep Apnea, COPD Currently Using CPAP: Yes Currently Using BIPAP: No Cardiac: Yes (OPEN HEART SURGERY WHEN 5 YRS OLD (HEART CHAMBER SURGERY)) Atrial Fibrillation, High Cholesterol, Hypertension Neurological: Yes (RARELY) Headaches /Migraines Reproductive Disorders: No Female Reproductive Disorders: Denies Sexually Transmitted Disease: No HIV/AIDS: No Gastrointestinal: No Musculoskeletal: Yes Chronic Back Pain Endocrine: Yes (TOLD HAS LOW THYRIOD, BUT NO MEDS) Cataract Loss of Vision: Bilateral Hearing Impairment: Denies Cancer: No Oral Did You Recieve Any Treatments: No Psychosocial: Yes Sleep Difficulties, Depression Integumentary: No Recent Skin Changes Blood Disorders: No Adverse Reaction/Blood Tranf: No (N/A) Family Medical History Reviewed Nursing Family Hx CANCER 19 FATHER CANCER 19 FATHER Dementia G8 BROTHER (ENCEPALITIS ) FHx: cancer Hypertension 19 MOTHER Thyroid disease 19 MOTHER Review of Systems Time Seen by Provider: 08:39 Sepsis Event Evaluation Height, Weight, BMI Height: 5'4.00" Weight: 202lbs. 1.0oz. 91.208206su; 34.7 BMI Method:Stated Exam Exam Vital Signs Date Time Temp Pulse Resp B/P (MAP) Pulse Ox O2 Delivery O2 Flow Rate FiO2 04/16/18 14:57 98.2 89 18 146/56 (86) 89 Nasal Cannula 2.00 04/16/18 11:55 111 22 96 35.00 04/16/18 10:47 Nasal Cannula 2.00 04/16/18 10:47 98 Nasal Cannula 3.00 04/16/18 10:30 94 Nasal Cannula 3.00 04/16/18 10:30 99.4 90 20 132/93 (106) 94 Nasal Cannula 3.00 Height & Weight Height: 5'4.00" Weight: 202lbs. 1.0oz. 91.537439uw; 34.7 BMI Method:Stated General Appearance: No Apparent Distress, WD/WN HEENT: PERRL/EOMI, Moist Mucous Membranes Neck: Non Tender, Supple Respiratory: Decreased Breath Sounds, Wheezing (scant, minimal air movement), Other (on BiPAP) Cardiovascular: Regular Rate, Rhythm, No Murmur Capillary Refill: Less Than 3 Seconds Extremity: Normal Capillary Refill, No Calf Tenderness Neurologic/Psychiatric: Alert, Oriented x3, Normal Mood/Affect Skin: Normal Color, Warm/Dry Results Lab Laboratory Tests 04/16/18 10:45 Assessment/Plan Assessment/Plan Acute on chronic respiratory failure -noninvasive ventilation -Check ABG when pt is not on BiPAP to see if she would qualify for home vent to mask COPDAE -SVNs, oxygen, -Advair, Squamous cell cancer of epiglottis -Dr. Casey is following Hypothyroid Afib CARMEN NARANJO DO Apr 16, 2018 15:15
[2018-04-16] MEDS ORDERED: NICO-587 TD (15:17)
[2018-04-16 15:47] VITALS: BP 113/56
[2018-04-16 16:00] VITALS: BP 133/62
[2018-04-16 16:29] LABS: ABG BASE EXCESS -3.1 MMOL/L (-2.5-2.5); ABG OXYGEN SATURATION 94 % (94-100); ABG PCO2 44 MMHG (35-45); ABG PO2 67 MMHG (79-93); ABG TCO2 23.5 MMOL/L (21.0-31.0)
[2018-04-16 16:31] LABS: ABG PH 7.32 (7.37-7.43); ALLENS TEST YES-POS; INSPIRED O2 3; PATIENT TEMP 97.7; VENTILATOR NO
[2018-04-16] MEDS ORDERED: NON-FORMULARY MEDICATION 1 EA EA (Warfarin Sodium 6 MG) PO SCH (17:15)
[2018-04-16] MEDS: methylPREDNISolone 40 MG/ML (Solu-MEDROL) VIAL IV SCH (17:17)
[2018-04-16] MEDS: warFARin 3 MG (COUMADIN) TAB PO SCH (18:47)
[2018-04-16] MEDS: RT-ALBUTEROL/IPRATROPIUM 3 ML (DUONEB) VIAL INH SCH ×2 (18:59→22:26)
[2018-04-16] MEDS: RT-ADVAIR HFA 115/21 MCG PER PUFF IH SCH (19:00)
[2018-04-16 19:25] VITALS: BP 112/58
[2018-04-16] MEDS: diphenhydrAMINE 25 MG TAB (BENADRYL) PO SCH (20:53)
[2018-04-16] MEDS: CATHETER FLUSH 10 ML SYR IV SCH (20:54)
[2018-04-16] MEDS ORDERED: NON-FORMULARY MEDICATION 1 EA EA (Diphenhydramine HCl 50 MG) PO SCH (21:00)
[2018-04-17] VITALS: BP 110/53
[2018-04-17] MEDS: methylPREDNISolone 40 MG/ML (Solu-MEDROL) VIAL IV SCH ×4 (00:56→18:19)
[2018-04-17] MEDS: RT-ALBUTEROL/IPRATROPIUM 3 ML (DUONEB) VIAL INH SCH ×6 (02:19→23:02)
[2018-04-17 04:00] VITALS: BP 132/63
[2018-04-17] MEDS: CATHETER FLUSH 10 ML SYR IV SCH ×3 (06:06→21:44)
[2018-04-17] MEDS: LEVOTHYROXINE 50 MCG (LEVOTHROID) TAB PO SCH (06:07)
[2018-04-17 06:54] LABS: BASOPHILS % (AUTO) 0 % (0-10); EOSINOPHILS % (AUTO) 0 % (0-10); HEMATOCRIT 39 % (35-52); HEMOGLOBIN 12.3 G/DL (11.5-16.0); LYMPHOCYTES # (AUTO) 0.8 X 10^3 (1.0-4.0); LYMPHOCYTES % (AUTO) 6 % (12-44); MEAN CORPUSCULAR HEMOGLOBIN 28 PG (25-34); MEAN CORPUSCULAR HGB CONC 32 G/DL (32-36); MEAN CORPUSCULAR VOLUME 89 FL (80-99); MEAN PLATELET VOLUME 9.9 FL (7.4-10.4); MONOCYTES # (AUTO) 0.3 X 10^3 (0.0-1.0); MONOCYTES % (AUTO) 3 % (0-12); NEUTROPHILS # (AUTO) 12.4 X 10^3 (1.8-7.8); NEUTROPHILS % (AUTO) 92 % (42-75); PLATELET COUNT 241 10^3/uL (130-400); RED BLOOD COUNT 4.35 10^6/uL (4.35-5.85); RED CELL DISTRIBUTION WIDTH 13.7 % (10.0-14.5); WHITE BLOOD COUNT 13.5 10^3/uL (4.3-11.0)
--- NOTE | 2018-04-17 07:14 | Pulmonary Progress Note ---
Subjective Time Seen by a Provider: 08:41 Subjective/Events-last exam No complications noted. Sepsis Event Evaluation Height, Weight, BMI Height: 5'4.00" Weight: 208lbs. 1.0oz. 94.345392mw; 34.7 BMI Method:Stated Exam Exam Vital Signs Date Time Temp Pulse Resp B/P (MAP) Pulse Ox O2 Delivery O2 Flow Rate FiO2 04/17/18 06:41 96 16 94 35.00 04/17/18 04:00 97.5 98 20 132/63 (86) 96 NIV Bilevel 04/17/18 02:19 94 16 95 35.00 04/17/18 01:00 96 04/17/18 00:06 78 17 97 35.00 04/17/18 00:00 97.7 94 20 110/53 (72) 92 Nasal Cannula 3.00 04/16/18 22:44 82 19 98 35.00 04/16/18 20:00 92 Nasal Cannula 3.00 04/16/18 19:25 96.7 100 20 112/58 (76) 92 Nasal Cannula 3.00 04/16/18 19:04 93 Nasal Cannula 3.00 04/16/18 19:00 94 04/16/18 17:31 95 04/16/18 16:00 98.6 91 22 133/62 (85) 93 Nasal Cannula 3.00 04/16/18 15:47 98.3 93 22 113/56 (75) 93 Nasal Cannula 3.00 04/16/18 15:32 Nasal Cannula 2.00 04/16/18 15:15 97.8 91 18 113/56 (75) 91 Nasal Cannula 3.00 04/16/18 15:12 95 98 32 04/16/18 14:57 98.2 89 18 146/56 (86) 89 Nasal Cannula 2.00 04/16/18 13:53 93 20 109/64 (79) 94 Nasal Cannula 2.00 04/16/18 11:55 111 22 96 35.00 04/16/18 10:47 Nasal Cannula 2.00 04/16/18 10:47 98 Nasal Cannula 3.00 04/16/18 10:30 94 Nasal Cannula 3.00 04/16/18 10:30 99.4 90 20 132/93 (106) 94 Nasal Cannula 3.00 I & O 04/17/18 07:00 Intake Total 1220 ml Output Total 600 ml Balance 620 ml Height & Weight Height: 5'4.00" Weight: 208lbs. 1.0oz. 94.048532pt; 34.7 BMI Method:Stated General Appearance: No Apparent Distress, WD/WN HEENT: PERRL/EOMI, Moist Mucous Membranes Neck: Non Tender, Supple Respiratory: Decreased Breath Sounds, Wheezing (scant, minimal air movement), Other (on BiPAP) Cardiovascular: Regular Rate, Rhythm, No Murmur Capillary Refill: Less Than 3 Seconds Extremity: Normal Capillary Refill, No Calf Tenderness Neurologic/Psychiatric: Alert, Oriented x3, Normal Mood/Affect Skin: Normal Color, Warm/Dry Results Lab Laboratory Tests 04/16/18 10:45 04/17/18 06:22 Assessment/Plan Assessment/Plan Acute on chronic respiratory failure -noninvasive ventilation COPDAE -SVNs, oxygen, -Advair, Squamous cell cancer of epiglottis -Dr. Casey is following Lung nodules -Neg on PET scan -Will need serial CT f/u Hypothyroid CARMEN Kidd DO Apr 17, 2018 07:14
[2018-04-17 07:15] LABS: ALANINE AMINOTRANSFERASE 25 U/L (0-55); ALBUMIN 4.2 GM/DL (3.2-4.5); ALKALINE PHOSPHATASE 85 U/L (40-136); BILIRUBIN,TOTAL 0.2 MG/DL (0.1-1.0); BUN/CREATININE RATIO 21; CALCIUM 9.8 MG/DL (8.5-10.1); CARBON DIOXIDE 23 MMOL/L (21-32); CHLORIDE 98 MMOL/L (98-107); CREATININE SERUM 0.78 MG/DL (0.60-1.30); GFR ESTIMATED > 60; GLUCOSE 272 MG/DL (70-105); POTASSIUM 4.2 MMOL/L (3.6-5.0); SODIUM 135 MMOL/L (135-145); TOTAL PROTEIN 6.8 GM/DL (6.4-8.2)
[2018-04-17 07:48] LABS: LYMPHOCYTES % (MANUAL) 4 %; MONOCYTES % (MANUAL) 5 %; NEUTROPHILS % (MANUAL) 91 %; RBC MORPH NORMAL
[2018-04-17 08:09] VITALS: BP 134/60
[2018-04-17] MEDS: NICOTINE 7 MG (NICODERM) PATCH TD SCH (08:40)
[2018-04-17] MEDS: NICOTINE PATCH REMOVAL TP SCH (08:40)
[2018-04-17] MEDS: DILTIAZEM 180 MG (CARDIZEM CD) CAP PO SCH (08:40)
--- NOTE | 2018-04-17 08:56 | Progress Note-Hospitalist ---
Subjective HPI/CC On Admission Date Seen by Provider: Apr 17, 2018 Time Seen by Provider: 08:54 Pt is a 62yoCF with a PMH of COPD, recently diagnosed SCC of the epiglottis, pAF , hypothyroidism, and HTN who presented to the ER with CC of shortness of breath. She states her symptoms started yesterday afternoon. She is compliant with her inhalers and tried to take her rescue inhalers as well but her symptoms did not improve prompting her to seek evaluation in the ER. She was found to be in respiratory distress and quickly placed on BiPAP in the ER. She states her symptoms are improving with BiPAP. She denies nay fevers, chills, sick contact. She has not started any chemo for her cancer yet. Subjective/Events-last exam Pt reports feeling much better today. Breathing better. No other complaints. Had taken herself on BiPAP to make some calls. Objective Exam Vital Signs Vital Signs Date Time Temp Pulse Resp B/P (MAP) Pulse Ox O2 Delivery O2 Flow Rate FiO2 04/17/18 08:16 100 14 95 35.00 04/17/18 08:09 96.6 134/60 (84) NIV Bilevel 04/16/18 15:12 32 Capillary Refill : Less Than 3 Seconds General Appearance: No Apparent Distress, WD/WN Respiratory: No Accessory Muscle Use, No Respiratory Distress, Wheezing Cardiovascular: Regular Rate, Rhythm, No Murmur, Normal Peripheral Pulses Gastrointestinal: Normal Bowel Sounds, Soft Extremity: No Calf Tenderness, No Pedal Edema Neurologic/Psychiatric: Alert, Oriented x3, Normal Mood/Affect Results/Procedures Lab Laboratory Tests 04/16/18 10:45 04/17/18 06:22 Patient resulted labs reviewed. Imaging: Reviewed Imaging Report Assessment/Plan Assessment and Plan Assess & Plan/Chief Complaint COPD Exacerbation Diagnosis/Problems Diagnosis/Problems (1) Acute respiratory distress Assessment & Plan: Trial off BiPAP Due to COPD exacerbation Pulm consulted, appreciate recs (2) COPD exacerbation Status: Acute Assessment & Plan: Pulm consulted, appreciate recs Continue steroids MAT protocol Continue home inhalers (3) Squamous cell cancer of epiglottis Assessment & Plan: Recently diagnosed Follows with Dr Casey Has not yet started radiation (4) Hypothyroid Status: Chronic Assessment & Plan: Continue home med Qualifiers: Hypothyroidism type: acquired Qualified Codes: E03.9 - Hypothyroidism, unspecified (5) Atrial fibrillation Status: Chronic Assessment & Plan: Rate well controlled Resume home meds INR therapeutic Qualifiers: Atrial fibrillation type: paroxysmal Qualified Codes: I48.0 - Paroxysmal atrial fibrillation (6) Essential (primary) hypertension Assessment & Plan: BP well controlled (7) Hyperglycemia, drug-induced Assessment & Plan: due to steroids SSI added Clinical Quality Measures DVT/VTE Risk/Contraindication: Risk Factor Score Per Nursin RFS Level Per Nursing on Admit: 4+=Very High BLANCHE GREENE MD Apr 17, 2018 08:56
[2018-04-17] MEDS ORDERED: NON-FORMULARY MEDICATION 1 EA EA (Tiotropium Bromide (Spiriva Respimat 2.5MCG/ACTUATION) 2 IH SCH (09:00)
[2018-04-17] MEDS ORDERED: NON-FORMULARY MEDICATION 1 EA EA (Diltiazem HCl (Diltiazem 24Hr ER) 180 MG) PO SCH (09:00)
[2018-04-17] MEDS ORDERED: NON-FORMULARY MEDICATION 1 EA EA (Fluticasone/Vilanterol (Breo Ellipta 100-25 Mcg INH) 1 P IH SCH (09:00)
[2018-04-17] MEDS ORDERED: NICOTINE 14 MG (NICODERM) PATCH TD SCH (09:00)
[2018-04-17] MEDS: RT-ADVAIR HFA 115/21 MCG PER PUFF IH SCH ×2 (10:23→18:52)
[2018-04-17] MEDS: UMECLIDINIUM BROMIDE (INCRUSE ELLIPTA) 7'S IH SCH (10:24)
[2018-04-17] MEDS ORDERED: inSUlin ASPART (NovoLOG) 1 UNIT/0.01 ML (CHARGE PER UNIT) SC SCH ×2 (11:00→16:00)
[2018-04-17 12:00] VITALS: BP 103/55
[2018-04-17 15:40] VITALS: BP 108/59
[2018-04-17] MEDS ORDERED: warFARin 2 MG (COUMADIN) TAB PO SCH ×2 (17:15→18:00)
[2018-04-17] MEDS: inSUlin ASPART (NovoLOG) 1 UNIT/0.01 ML (CHARGE PER UNIT) SC SCH (18:18)
[2018-04-17] MEDS ORDERED: inSUlin ASPART (NovoLOG) 1 UNIT/0.01 ML (CHARGE PER UNIT) ONE (18:21)
[2018-04-17 19:45] VITALS: BP 106/59
[2018-04-17] MEDS: diphenhydrAMINE 25 MG TAB (BENADRYL) PO SCH (21:43)
[2018-04-18] VITALS (7 sets, daily range): BP systolic 96–131; BP diastolic 53–58
[2018-04-18] MEDS: methylPREDNISolone 40 MG/ML (Solu-MEDROL) VIAL IV SCH ×2 (00:39→06:11)
[2018-04-18] MEDS: inSUlin ASPART (NovoLOG) 1 UNIT/0.01 ML (CHARGE PER UNIT) SC SCH ×5 (00:40→21:15)
[2018-04-18] MEDS: RT-ALBUTEROL/IPRATROPIUM 3 ML (DUONEB) VIAL INH SCH ×6 (02:22→22:11)
[2018-04-18] MEDS: LEVOTHYROXINE 50 MCG (LEVOTHROID) TAB PO SCH (06:11)
[2018-04-18] MEDS: CATHETER FLUSH 10 ML SYR IV SCH ×3 (06:12→21:15)
--- NOTE | 2018-04-18 06:17 | Pulmonary Progress Note ---
Subjective Time Seen by a Provider: 07:54 Subjective/Events-last exam No complications noted. Sepsis Event Evaluation Height, Weight, BMI Height: 5'4.00" Weight: 208lbs. 1.0oz. 94.143843pv; 34.7 BMI Method:Stated Exam Exam Vital Signs Date Time Temp Pulse Resp B/P (MAP) Pulse Ox O2 Delivery O2 Flow Rate FiO2 04/18/18 04:30 76 13 97 35.00 04/18/18 02:14 80 13 98 35.00 04/18/18 01:00 92 04/18/18 00:00 97.6 99 20 131/58 (82) 95 Nasal Cannula 3.00 04/17/18 23:03 92 Nasal Cannula 3.00 04/17/18 20:00 92 Nasal Cannula 3.00 04/17/18 19:45 96.8 107 16 106/59 (75) 95 Nasal Cannula 3.00 04/17/18 19:00 94 Nasal Cannula 3.00 04/17/18 19:00 102 04/17/18 18:52 93 Nasal Cannula 3.00 04/17/18 15:40 96.9 105 16 108/59 (75) 92 Nasal Cannula 3.00 04/17/18 14:34 95 Nasal Cannula 3.00 04/17/18 13:00 98 04/17/18 12:00 99.3 101 20 103/55 (71) 93 Nasal Cannula 3.00 04/17/18 10:24 92 Nasal Cannula 3.00 04/17/18 08:16 100 14 95 35.00 04/17/18 08:09 96.6 98 14 134/60 (84) 96 NIV Bilevel 3.00 04/17/18 08:00 92 NIV Bilevel 04/17/18 07:00 96 04/17/18 06:41 96 16 94 35.00 I & O 04/18/18 07:00 Intake Total 2100 ml Output Total 700 ml Balance 1400 ml Height & Weight Height: 5'4.00" Weight: 208lbs. 1.0oz. 94.895183tx; 34.7 BMI Method:Stated General Appearance: No Apparent Distress, WD/WN, Anxious HEENT: PERRL/EOMI, Moist Mucous Membranes Neck: Non Tender, Supple Respiratory: No Accessory Muscle Use, No Respiratory Distress, Wheezing Cardiovascular: Regular Rate, Rhythm, No Murmur, Normal Peripheral Pulses Capillary Refill: Less Than 3 Seconds Extremity: No Calf Tenderness, No Pedal Edema Neurologic/Psychiatric: Alert, Oriented x3, Normal Mood/Affect Skin: Normal Color, Warm/Dry Results Lab Laboratory Tests 04/16/18 10:45 04/17/18 06:22 Assessment/Plan Assessment/Plan Acute on chronic respiratory failure - improving -BiPAP PRN -repeat ABG today COPDAE -SVNs, oxygen, -rednisone -Advair, Squamous cell cancer of epiglottis -Dr. Casey is following Lung nodules -Neg on PET scan -Will need serial CT f/u Hypothyroid Afib CARMEN NARANJO DO Apr 18, 2018 06:17
[2018-04-18] MEDS: UMECLIDINIUM BROMIDE (INCRUSE ELLIPTA) 7'S IH SCH (07:09)
[2018-04-18] MEDS: RT-ADVAIR HFA 115/21 MCG PER PUFF IH SCH ×2 (07:09→18:29)
[2018-04-18] MEDS: predniSONE 20 MG TAB PO SCH (07:26)
[2018-04-18 08:01] LABS: ABG BASE EXCESS 2.8 MMOL/L (-2.5-2.5); ABG OXYGEN SATURATION 95 % (94-100); ABG PCO2 43 MMHG (35-45); ABG PH 7.42 (7.37-7.43); ABG PO2 66 MMHG (79-93); ABG TCO2 28.6 MMOL/L (21.0-31.0)
[2018-04-18 08:02] LABS: ALLENS TEST POSITIVE; INSPIRED O2 3 L; PATIENT TEMP 96.9; VENTILATOR NO
[2018-04-18] MEDS: DILTIAZEM 180 MG (CARDIZEM CD) CAP PO SCH (09:23)
[2018-04-18] MEDS: NICOTINE PATCH REMOVAL TP SCH (09:23)
[2018-04-18] MEDS: NICOTINE 7 MG (NICODERM) PATCH TD SCH (09:23)
--- NOTE | 2018-04-18 11:01 | Progress Note-Hospitalist ---
Subjective HPI/CC On Admission Date Seen by Provider: Apr 18, 2018 Time Seen by Provider: 10:59 Pt is a 62yoCF with a PMH of COPD, recently diagnosed SCC of the epiglottis, pAF , hypothyroidism, and HTN who presented to the ER with CC of shortness of breath. She states her symptoms started yesterday afternoon. She is compliant with her inhalers and tried to take her rescue inhalers as well but her symptoms did not improve prompting her to seek evaluation in the ER. She was found to be in respiratory distress and quickly placed on BiPAP in the ER. She states her symptoms are improving with BiPAP. She denies nay fevers, chills, sick contact. She has not started any chemo for her cancer yet. Subjective/Events-last exam Pt reports breathing better but still wheezing. Slept with BiPAP but did not sleep well due to noise. Objective Exam Vital Signs Vital Signs Date Time Temp Pulse Resp B/P (MAP) Pulse Ox O2 Delivery O2 Flow Rate FiO2 04/18/18 08:28 98.6 92 20 96/54 (68) 94 Nasal Cannula 3.00 04/16/18 15:12 32 Capillary Refill : Less Than 3 Seconds General Appearance: No Apparent Distress, WD/WN Respiratory: No Accessory Muscle Use, No Respiratory Distress, Wheezing Cardiovascular: Regular Rate, Rhythm, No Murmur Neurologic/Psychiatric: Alert, Oriented x3, Normal Mood/Affect Results/Procedures Lab Patient resulted labs reviewed. Imaging: Reviewed Imaging Report Assessment/Plan Assessment and Plan Assess & Plan/Chief Complaint COPD Exacerbation Diagnosis/Problems Diagnosis/Problems (1) COPD exacerbation Status: Acute Assessment & Plan: Pulm consulted, appreciate recs Continue steroids MAT protocol Continue home inhalers (2) Acute respiratory distress Status: Resolved Assessment & Plan: Doing well off BiPAP Due to COPD exacerbation Pulm consulted, appreciate recs (3) Hyperglycemia, drug-induced Assessment & Plan: due to steroids SSI added and escalated to B yesterday If remains elevated may consider basal insulin while on steroids (4) Squamous cell cancer of epiglottis Assessment & Plan: Recently diagnosed Follows with Dr Casey Has not yet started radiation (5) Atrial fibrillation Status: Chronic Assessment & Plan: Rate well controlled Resume home meds INR therapeutic Qualifiers: Atrial fibrillation type: paroxysmal Qualified Codes: I48.0 - Paroxysmal atrial fibrillation (6) Essential (primary) hypertension Assessment & Plan: BP low to normotensive Bernie held this AM (7) Hypothyroid Status: Chronic Assessment & Plan: Continue home med Qualifiers: Hypothyroidism type: acquired Qualified Codes: E03.9 - Hypothyroidism, unspecified Clinical Quality Measures DVT/VTE Risk/Contraindication: Risk Factor Score Per Nursin RFS Level Per Nursing on Admit: 4+=Very High BLANCHE GREENE MD Apr 18, 2018 11:01 am
[2018-04-18] MEDS: warFARin 3 MG (COUMADIN) TAB PO SCH (18:34)
[2018-04-18] MEDS: diphenhydrAMINE 25 MG TAB (BENADRYL) PO SCH (21:14)
[2018-04-19] VITALS: BP 130/64
[2018-04-19] MEDS: RT-ALBUTEROL/IPRATROPIUM 3 ML (DUONEB) VIAL INH SCH ×4 (02:25→15:17)
[2018-04-19 04:00] VITALS: BP 150/73
[2018-04-19] MEDS: LEVOTHYROXINE 50 MCG (LEVOTHROID) TAB PO SCH (06:03)
[2018-04-19] MEDS: predniSONE 20 MG TAB PO SCH (06:03)
[2018-04-19] MEDS: CATHETER FLUSH 10 ML SYR IV SCH ×2 (06:04→15:20)
[2018-04-19] MEDS: inSUlin ASPART (NovoLOG) 1 UNIT/0.01 ML (CHARGE PER UNIT) SC SCH ×2 (06:04→11:13)
[2018-04-19 07:00] LABS: INR 2.8 (0.8-1.4); PROTHROMBIN TIME PATIENT 29.9 SEC (12.2-14.7)
[2018-04-19] MEDS: UMECLIDINIUM BROMIDE (INCRUSE ELLIPTA) 7'S IH SCH (07:26)
[2018-04-19] MEDS: RT-ADVAIR HFA 115/21 MCG PER PUFF IH SCH (07:26)
--- NOTE | 2018-04-19 07:30 | Pulmonary Progress Note ---
Subjective Time Seen by a Provider: 13:08 Subjective/Events-last exam PT feels better and wants to go home. Sepsis Event Evaluation Height, Weight, BMI Height: 5'4.00" Weight: 207lbs. 1.0oz. 93.149227pm; 34.7 BMI Method:Stated Exam Exam Vital Signs Date Time Temp Pulse Resp B/P (MAP) Pulse Ox O2 Delivery O2 Flow Rate FiO2 04/19/18 04:00 97.8 90 16 150/73 (98) 96 Nasal Cannula 3.00 04/19/18 02:25 93 NIV CPAP 3.00 04/19/18 01:00 98 04/19/18 00:00 98.9 102 16 130/64 (86) 96 Nasal Cannula 3.00 04/18/18 22:11 92 Nasal Cannula 3.00 04/18/18 20:00 Nasal Cannula 3.00 04/18/18 19:56 97.0 100 16 115/58 (77) 95 Nasal Cannula 3.00 04/18/18 19:00 107 04/18/18 18:30 93 Nasal Cannula 3.00 04/18/18 16:05 97.4 108 16 111/53 (72) 94 Nasal Cannula 3.00 04/18/18 15:08 91 Nasal Cannula 3.00 04/18/18 13:00 105 04/18/18 12:00 98.9 100 20 116/54 (74) 92 Nasal Cannula 3.00 04/18/18 11:03 93 Nasal Cannula 3.00 04/18/18 08:28 98.6 92 20 96/54 (68) 94 Nasal Cannula 3.00 04/18/18 08:00 94 Nasal Cannula 3.00 04/18/18 08:00 98.2 83 14 98/55 (69) 92 Room Air I & O 04/19/18 07:00 Intake Total 2520 ml Output Total 2000 ml Balance 520 ml Height & Weight Height: 5'4.00" Weight: 207lbs. 1.0oz. 93.751845tm; 34.7 BMI Method:Stated General Appearance: No Apparent Distress, WD/WN HEENT: PERRL/EOMI, Moist Mucous Membranes Neck: Non Tender, Supple Respiratory: No Accessory Muscle Use, No Respiratory Distress, Wheezing Cardiovascular: Regular Rate, Rhythm, No Murmur Capillary Refill: Less Than 3 Seconds Extremity: No Calf Tenderness, No Pedal Edema Neurologic/Psychiatric: Alert, Oriented x3, Normal Mood/Affect Skin: Normal Color, Warm/Dry Assessment/Plan Assessment/Plan Acute on chronic respiratory failure - improving -BiPAP PRN COPDAE -SVNs, oxygen, -prednisone -Advair, Squamous cell cancer of epiglottis -Dr. Casey is following Lung nodules -Neg on PET scan -Will need serial CT f/u Hypothyroid Afib CARMEN NARANJO DO Apr 19, 2018 07:30
[2018-04-19 08:36] VITALS: BP 148/70
[2018-04-19] MEDS: NICOTINE 7 MG (NICODERM) PATCH TD SCH (09:44)
[2018-04-19] MEDS: NICOTINE PATCH REMOVAL TP SCH (09:44)
[2018-04-19] MEDS: DILTIAZEM 180 MG (CARDIZEM CD) CAP PO SCH (09:44)
--- NOTE | 2018-04-19 11:23 | Progress Note-Hospitalist ---
Progress Note Progress Notes/Assess & Plan Date Seen 04/19/18 Time Seen by Provider: 11:20 Assessment & Plan The patient is a cheerful 62-year-old white female. She was admitted with shortness of breath. She has advanced COPD and has a nebulizer with meds at home +24 hour O2 by nasal cannula. In addition she has sleep apnea and uses a CPAP machine. She has had episodes leading to hospitalization before. She states that she feels quite normal for her today. She is anxious to return to her home in [place]. She has a previous recent diagnosis of squamous cell carcinoma of the epiglottis. She will be starting radiation treatment here in approximately one week. Physical exam: She is pleasant and oriented. Lungs show a modest patch of rhonchi in the left base posteriorly. CV is regular without murmur. Abdomen is obese. There is no pedal edema. Impression: Exacerbation of COPD. 2.recent diagnosis of squamous cell carcinoma of the epiglottis. 3.history of steroid-related hyperglycemia. Plan: The patient will be dismissed. See the discharge sequence for medications and routines. YARELIS UMANA MD Apr 19, 2018 11:23
[2018-04-19] MEDS ORDERED: PRD20T PO (11:31)
--- NOTE | 2018-04-19 11:34 | Discharge Instructions ---
Discharge Instructions Patient Instructions Patient Instructions: Medications as listed in the discharge sequence. Resume activities as at home before. Fingerstick blood sugars as the prednisone may raise your blood sugar level. Await instructions from cancer center relative to planned radiation therapy. Return to The Hospital For: Decline in condition Activity & Diet Discharge Diet: No Restrictions Activity as Tolerated: Yes YARELIS UMANA MD Apr 19, 2018 11:34
--- NOTE | 2018-04-19 11:40 | Physician Query Clarification ---
PQ-Conflicting Diagnosis Admission/Discharge Admission Date: Apr 16, 2018 at 12:43 Discharge Date: The medical record reflects the following clinical scenario: History/Risk Factors: Acute exacerbation of COPD Clinical Findings:On admission to ED: Pulse 90, Resp 20, Pulse ox 94%, wheezing, shortness of air at rest,labored breathing. Blood gases: pH 7.32, PC02 44, P02 67, HC03 22. Treatment: An hour- long nebulizer treatment, put on BiPAP and IVP Solu Medrol. Your H&P gives a diagnosis of Acute Respiratory Distress. Question: Do you agree with the impression of the Acute on chronic respiratory failure per Dr. Mcdonald consult? Please document a response below. PHYSICIAN RESPONSE Do you agree w/Consulting Dx?: Yes In responding to this query, please exercise your independent professional judgment. The purpose of this communication is to more accurately reflect the complexity of your patients condition. The fact that a question is asked does not imply that any particular answer is desired or expected. Thank you for your timely response to this clarification. Requestors name: Lina Bates [facility] Phone # ext [phone] or [phone] THIS PHYSICIAN QUERY FORM IS A PERMANENT PART OF THE MEDICAL RECORD LINA BATES Apr 19, 2018 11:40 BLANCHE GREENE MD Apr 21, 2018 08:35
[2018-04-19 12:17] VITALS: BP 129/80
[2018-04-19 16:00] VITALS: BP 129/80
== END 2018-04-19 16:00 | disposition home or self-care (01) | DRG 189 ==
LOC: EDUNIT# 10:25 → ER 10:26 → 4TH 12:43
PROVIDERS: ADMIT Family Medicine; ATTEND Family Medicine
DX: J96.20 Acute and chronic respiratory failure, unspecified whether with hypoxia or hypercapnia (principal); J44.1 Chronic obstructive pulmonary disease with (acute) exacerbation; C32.1 Malignant neoplasm of supraglottis; G47.30 Sleep apnea, unspecified; N61.1 Abscess of the breast and nipple; R91.8 Other nonspecific abnormal finding of lung field; F17.210 Nicotine dependence, cigarettes, uncomplicated; I48.0 Paroxysmal atrial fibrillation; R73.9 Hyperglycemia, unspecified; T38.0X5A Adverse effect of glucocorticoids and synthetic analogues, initial encounter; E03.9 Hypothyroidism, unspecified; I10 Essential (primary) hypertension; E78.00 Pure hypercholesterolemia, unspecified; F32.9 Major depressive disorder, single episode, unspecified; G43.909 Migraine, unspecified, not intractable, without status migrainosus; M54.9 Dorsalgia, unspecified; Z99.81 Dependence on supplemental oxygen; Z87.74 Personal history of (corrected) congenital malformations of heart and circulatory system
CPT/HCPCS: 36415; 36600; 71045; 80053; 82805; 82962; 84439; 84443; 84484; 85007; 85025; 85027; 85610; 85730; 86141; 87804; 93005; 93041; 94640; 94660; 94664; 94760; 96374; 96375

== ENCOUNTER 2018-05-23 12:34 | Emergency (ER) | payer MEDICARE, MEDICAID ==
[~2018-05-23] VITALS: Ht 162.6 cm; Wt 89.8 kg
[~2018-05-23 12:34] MED LIST changes: +DILT180C PO; +FLUT1BLS INH; +IPRA3AMP31 NEB; +NICO-587 TD
--- NOTE | 2018-05-23 13:12 | ED Chest Pain ---
General Chief Complaint: Respiratory Problems Stated Complaint: COPD/BACK AND CHEST PAIN/ARM NUMBNESS Nursing Triage Note: PT VERBALIZED MILD SOB WITH PAIN REPORTED IN THE RIGHT SHOULDER THAT BEGAN AT 0800 AND RADIATES TO THE SHOULDER BLADE AREA. PT REPORTS TENDERNESS TO PALPATION TO THE SHOULDERBLADE. DENIES ANY KNOWN ORGANIC CAUSE FOR THE SHOULDER PAIN, WAS RESTING AT TIME OF ONSET. Nursing Sepsis Screen: No Definite Risk Source: patient, family Exam Limitations: no limitations History of Present Illness Date Seen by Provider: May 23, 2018 Time Seen by Provider: 13:08 Initial Comments This 62-year-old female presents with paroxysmal right scapular pain to begin this morning shortly prior to presentation emergency department. The patient related that set up scapular right chest wall pain began while she was sitting at home this morning at approximately 9 a.m. Patient's pain has been sharp in nature and severe in intensity. There is been no associated remarkable radiation. There's been no associated shortness of breath, productive cough, palpitations, paresthesias or weakness in the right upper extremity, associated right-sided neck pain, or similar episodes in the past. 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 In addition the patient is at atrial fib for the last several years. She suffers from COPD. She had a recent exacerbation requiring hospitalization. She relates however that this symptom complex is different from her usual COPD exacerbation. 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 Allergies and Home Medications Allergies Coded Allergies: codeine (Verified Adverse Reaction, Mild, GI UPSET, 04/01/18) Home Medications Albuterol Sulfate 1 Puff Puff, 2 PUFF IH Q6H PRN for SHORTNESS OF BREATH, ( Reported) 1 PUFF = 90 MCG Citalopram Hydrobromide 20 Mg Tablet, 20 MG PO HS, (Reported) Diltiazem HCl 180 Mg Cap.er.24h, 180 MG PO DAILY, (Reported) Diphenhydramine HCl 50 Mg Capsule, 50 MG PO HS, (Reported) Fluticasone/Vilanterol 1 Each Blst.w.dev, 1 PUFF IH DAILY, (Reported) Ipratropium/Albuterol Sulfate 3 Ml Ampul.neb, 3 ML NEB Q6H, (Reported) Levalbuterol HCl 1.25 Mg/3 Ml Vial.neb, 1.25 MG NEB Q6H PRN for SHORTNESS OF BREATH, (Reported) Levothyroxine Sodium 50 Mcg Tablet, 50 MCG PO DAILY, (Reported) Nicotine 1 Each Patch.td24, 14 MG TD DAILY, (Reported) Prednisone 20 Mg Tab, 20 MG PO as directed Take 2 tabs each a.m. 3 day Then take 1 tab each a.m. 3 days. Then take one half tablet each a.m. 4 days. Then stop Prescribed by: YARELIS UMANA on 04/19/18 1131 Tiotropium Crow[place] 4 Gm Mist.inhal, 2 PUFF IH DAILY, (Reported) Warfarin Sodium 2 Mg Tablet, 2 MG PO Sa, (Reported) Warfarin Sodium 6 Mg Tablet, 6 MG PO SuMoTuWeThFr, (Reported) Patient Home Medication List Home Medication List Reviewed: Yes Review of Systems Review of Systems Constitutional: No chills, No fever EENTM: No Double Vision, No Ear Pain Respiratory: See HPI, Cough; Denies SOA at Rest Cardiovascular: Chest Pain; Denies Irregular Heart Rate, Denies Palpitations, Denies Syncope Gastrointestinal: Denies Abdomen Distended, Denies Diarrhea, Denies Nausea, Denies Vomiting Genitourinary: Denies No Symptoms Reported Musculoskeletal: No back pain Skin: No change in color, No rash Psychiatric/Neurological: No Symptoms Reported Endocrine: No Symptoms Reported Hematologic/Lymphatic: No Symptoms Reported Past Nxwnxrg-Tkrrpk-Geremv Hx Past Med/Social Hx: Reviewed Nursing Past Med/Soc Hx Patient Social History Type Used: Cigarettes Recent Foreign Travel: No Contact w/Someone Who Travel: No Recent Infectious Disease Expo: No Recent Hopitalizations: No Immunizations Up To Date Tetanus Booster (TDap): Unknown PED Vaccines UTD: No Date of Pneumonia Vaccine: Mar 12, 2017 Date of Influenza Vaccine: Mar 23, 2018 Seasonal Allergies Seasonal Allergies: No Past Medical History Surgeries: Yes (HEART SURGERY WHEN 5 YRS OLD) Appendectomy, Open Heart Surgery, Tonsillectomy Respiratory: Yes (O2 3L NC AT ALL TIMES) Sleep Apnea, COPD Currently Using CPAP: Yes Currently Using BIPAP: No Cardiac: Yes (OPEN HEART SURGERY WHEN 5 YRS OLD (HEART CHAMBER SURGERY)) Atrial Fibrillation, High Cholesterol, Hypertension Neurological: Yes (RARELY) Headaches /Migraines : No Reproductive Disorders: No Female Reproductive Disorders: Denies [employer] History: Menopausal Sexually Transmitted Disease: No HIV/AIDS: No Gastrointestinal: No Musculoskeletal: Yes Chronic Back Pain Endocrine: Yes (TOLD HAS LOW THYRIOD, BUT NO MEDS) Cataract Loss of Vision: Bilateral Hearing Impairment: Denies Cancer: No Oral Did You Recieve Any Treatments: No Psychosocial: Yes Sleep Difficulties, Depression Integumentary: No Recent Skin Changes Blood Disorders: No Adverse Reaction/Blood Tranf: No (N/A) Family Medical History CANCER 19 FATHER CANCER 19 FATHER Dementia G8 BROTHER (ENCEPALITIS ) FHx: cancer Hypertension 19 MOTHER Thyroid disease 19 MOTHER Physical Exam Vital Signs Vital Signs - First Documented 05/23/18 12:47 Temp 98.3 Pulse 78 Resp 22 B/P (MAP) 129/49 (75) Pulse Ox 98 O2 Delivery Nasal Cannula O2 Flow Rate 3.00 Capillary Refill : Less Than 3 Seconds Height, Weight, BMI Height: 5'4.00" Weight: 198lbs. 1.0oz. [id number]; 34.7 BMI Method:Stated General Appearance: WD/WN, Mild Distress HEENT: Normal ENT Inspection Neck: Normal Inspection Respiratory: Decreased Breath Sounds Cardiovascular: Regular Rate, Rhythm Gastrointestinal: Normal Bowel Sounds Extremity: Normal Capillary Refill, Normal Inspection, Normal Range of Motion Neurologic/Psychiatric: Oriented x3, No Motor/Sensory Deficits Skin: Normal Color, Warm/Dry Progress/Results/Core Measures Results/Orders Lab Results Laboratory Tests Test 05/23/18 12:58 Range/Units White Blood Count 8.0 4.3-11.0 10^3/uL Red Blood Count 4.32 L 4.35-5.85 10^6/uL Hemoglobin 12.6 11.5-16.0 G/DL Hematocrit 39 35-52 % Mean Corpuscular Volume 90 80-99 FL Mean Corpuscular Hemoglobin 29 25-34 PG Mean Corpuscular Hemoglobin Concent 33 32-36 G/DL Red Cell Distribution Width 14.1 10.0-14.5 % Platelet Count 235 130-400 10^3/uL Mean Platelet Volume 9.7 7.4-10.4 FL Neutrophils (%) (Auto) 80 H 42-75 % Lymphocytes (%) (Auto) 15 12-44 % Monocytes (%) (Auto) 5 0-12 % Eosinophils (%) (Auto) 0 0-10 % Basophils (%) (Auto) 0 0-10 % Neutrophils # (Auto) 6.4 1.8-7.8 X 10^3 Lymphocytes # (Auto) 1.2 1.0-4.0 X 10^3 Monocytes # (Auto) 0.4 0.0-1.0 X 10^3 Eosinophils # (Auto) 0.0 0.0-0.3 10^3/uL Basophils # (Auto) 0.0 0.0-0.1 10^3/uL Sodium Level 136 135-145 MMOL/L Potassium Level 3.8 3.6-5.0 MMOL/L Chloride Level 97 L 98-107 MMOL/L Carbon Dioxide Level 27 21-32 MMOL/L Anion Gap 12 5-14 MMOL/L Blood Urea Nitrogen 6 L 7-18 MG/DL Creatinine 0.71 0.60-1.30 MG/DL Estimat Glomerular Filtration Rate > 60 BUN/Creatinine Ratio 8 Glucose Level 181 H 70-105 MG/DL Calcium Level 9.5 8.5-10.1 MG/DL Corrected Calcium 9.3 8.5-10.1 MG/DL Total Bilirubin 0.4 0.1-1.0 MG/DL Aspartate Amino Transf (AST/SGOT) 21 5-34 U/L Alanine Aminotransferase (ALT/SGPT) 22 0-55 U/L Alkaline Phosphatase 94 40-136 U/L Troponin I < 0.30 <0.30 NG/ML Total Protein 6.9 6.4-8.2 GM/DL Albumin 4.2 3.2-4.5 GM/DL Lipase 14 8-78 U/L My Orders Orders - DINAH HARRELL MD Ekg Tracing (05/23/18 12:42) Cbc With Automated Diff (05/23/18 13:05) Comprehensive Metabolic Panel (05/23/18 13:05) Troponin I (05/23/18 13:05) Lipase (05/23/18 13:05) Ns Iv 1000 Ml (Sodium Chloride 0.9%) (05/23/18 13:15) Fentanyl Injection (Sublimaze Injection (05/23/18 13:15) Chest 1 View, Ap/Pa Only (05/23/18 13:21) Lidocaine 2% Injection 20 Ml (Xylocaine (05/23/18 16:00) Bupivacaine 0.5% Injection (Sensorcaine (05/23/18 16:00) Methylprednisolone Sod Succ (Solu-Medrol (05/23/18 16:00) Medications Given in ED Current Medications Medications Dose Ordered Sig/Mirta Route Start Time Stop Time Status Last Admin Dose Admin Bupivacaine HCl 30 ml ONCE ONCE INJ 05/23/18 16:00 05/23/18 16:01 DC 05/23/18 16:18 30 ML Fentanyl Citrate 50 mcg ONCE ONCE IVP 05/23/18 13:15 05/23/18 13:16 DC 05/23/18 13:16 50 MCG Lidocaine HCl 20 ml ONCE ONCE INJ 05/23/18 16:00 05/23/18 16:01 DC 05/23/18 16:18 20 ML Methylprednisolone Sodium Succinate 125 mg ONCE ONCE IM 05/23/18 16:00 05/23/18 16:01 DC 05/23/18 16:19 125 MG Vital Signs/I&O 05/23/18 12:47 Temp 98.3 Pulse 78 Resp 22 B/P (MAP) 129/49 (75) Pulse Ox 98 O2 Delivery Nasal Cannula O2 Flow Rate 3.00 Blood Pressure Mean: 75 Progress Progress Note : Time: 16:26 Progress Note The patient's chest x-ray demonstrated interval improvement from previous radiograph of a right sided pulmonary nodule. Patient's CBC, complete metabolic panel, and troponin were normal. The patient demonstrated an apparent trigger point to the right-sided thoracic area in the back between the posterior processes of the thoracic spine and the medial border of the scapula. I offered the patient and injection with local anesthetics & Medrol to which she agreed. Accommodation of 2 percent plain Xylocaine, 0.5 percent Marcaine, and Solu- Medrol was injected into the trigger point. 5:05 p.m. The patient's right shoulder pain was markedly improved following the trigger point injection. Departure Impression Primary Impression: Trigger point Disposition: 01 HOME, SELF-CARE Condition: Improved Departure-Patient Inst. Decision time for Depature: 17:06 Referrals: NO,LOCAL PHYSICIAN (PCP) Primary Care Physician Patient Instructions: Muscle Spasms (DC) Add. Discharge Instructions: Heating pad and TENS unit to the right shoulder area. Close follow-up with her doctors. Return if any problems or questions. All discharge instructions reviewed with patient and/or family. Voiced understanding. DINAH HARRELL MD May 23, 2018 13:12
[2018-05-23 13:14] LABS: BASOPHILS % (AUTO) 0 % (0-10); EOSINOPHILS % (AUTO) 0 % (0-10); HEMATOCRIT 39 % (35-52); HEMOGLOBIN 12.6 G/DL (11.5-16.0); LYMPHOCYTES # (AUTO) 1.2 X 10^3 (1.0-4.0); LYMPHOCYTES % (AUTO) 15 % (12-44); MEAN CORPUSCULAR HEMOGLOBIN 29 PG (25-34); MEAN CORPUSCULAR HGB CONC 33 G/DL (32-36); MEAN CORPUSCULAR VOLUME 90 FL (80-99); MEAN PLATELET VOLUME 9.7 FL (7.4-10.4); MONOCYTES # (AUTO) 0.4 X 10^3 (0.0-1.0); MONOCYTES % (AUTO) 5 % (0-12); NEUTROPHILS # (AUTO) 6.4 X 10^3 (1.8-7.8); NEUTROPHILS % (AUTO) 80 % (42-75); PLATELET COUNT 235 10^3/uL (130-400); RED BLOOD COUNT 4.32 10^6/uL (4.35-5.85); RED CELL DISTRIBUTION WIDTH 14.1 % (10.0-14.5)
[2018-05-23] MEDS ORDERED: NS IV 1000 ML 1,000 ML IV SCH (13:15)
[2018-05-23] MEDS ORDERED: fentaNYL INJECTION 100 MCG/2 ML AMP IVP ONE (13:15)
[2018-05-23 13:34] LABS: ALANINE AMINOTRANSFERASE 22 U/L (0-55); ALBUMIN 4.2 GM/DL (3.2-4.5); ALKALINE PHOSPHATASE 94 U/L (40-136); BILIRUBIN,TOTAL 0.4 MG/DL (0.1-1.0); BUN/CREATININE RATIO 8; CALCIUM 9.5 MG/DL (8.5-10.1); CARBON DIOXIDE 27 MMOL/L (21-32); CHLORIDE 97 MMOL/L (98-107); CREATININE SERUM 0.71 MG/DL (0.60-1.30); GFR ESTIMATED > 60; GLUCOSE 181 MG/DL (70-105); LIPASE 14 U/L (8-78); POTASSIUM 3.8 MMOL/L (3.6-5.0); SODIUM 136 MMOL/L (135-145); TOTAL PROTEIN 6.9 GM/DL (6.4-8.2)
--- NOTE | 2018-05-23 13:42 | Diagnostic Imaging Report ---
INDICATION: Shortness of breath, shoulder pain. FINDINGS: Enlargement of the cardiac silhouette is similar in magnitude to prior. Some borderline prominence of the central and upper lobe pulmonary veins, similar to prior. An ovoid right mid lung nodule with a diameter of 9 mm, unchanged from prior. On the previous exam, more basilar density was noted. This is no longer apparent. No convincing evidence for edema. No pleural fluid. IMPRESSION: Mid right lung nodule, unchanged. Basilar density is no longer found. Upper limits heart size and borderline vascular congestion but no zaid edema. Dictated by: Dictated on workstation # [id number]
[2018-05-23] MEDS ORDERED: LIDOCAINE 2% 20 ML (XYLOCAINE) VIAL INJ ONE (16:00)
[2018-05-23] MEDS ORDERED: methylPREDNISolone 125 MG (Solu-MEDROL) VIAL IM ONE (16:00)
[2018-05-23] MEDS ORDERED: BUPIVACAINE 0.5% 30 ML (SENSORCAINE) VIAL INJ ONE (16:00)
[2018-05-23 17:14] VITALS: BP 157/79
== END 2018-05-23 17:14 | disposition home or self-care (01) ==
LOC: EDUNIT# 12:34 → ER 12:35
DX: M79.10 Myalgia, unspecified site (principal); M25.511 Pain in right shoulder; C76.0 Malignant neoplasm of head, face and neck; J44.1 Chronic obstructive pulmonary disease with (acute) exacerbation; Q24.9 Congenital malformation of heart, unspecified; G47.30 Sleep apnea, unspecified; I48.91 Unspecified atrial fibrillation; G43.909 Migraine, unspecified, not intractable, without status migrainosus; F32.9 Major depressive disorder, single episode, unspecified; E78.00 Pure hypercholesterolemia, unspecified; I10 Essential (primary) hypertension; Z98.890 Other specified postprocedural states; Z90.49 Acquired absence of other specified parts of digestive tract; Z88.5 Allergy status to narcotic agent; Z90.89 Acquired absence of other organs; Z79.52 Long term (current) use of systemic steroids; Z79.01 Long term (current) use of anticoagulants; Z79.51 Long term (current) use of inhaled steroids; Z92.21 Personal history of antineoplastic chemotherapy
CPT/HCPCS: 36415; 71045; 80053; 83690; 84484; 85025; 93005

== ENCOUNTER → 2018-07-13 | Outpatient (RCR) | payer MEDICARE, MEDICAID ==
[~2018-07-13] MED LIST changes: -LEVA1.2516 NEB; +LEVA1.2543 NEB
== END | disposition home or self-care (01) ==
LOC: ONC 04-14 08:16
PROVIDERS: ATTEND Radiology Radiation Oncology
DX: Z51.0 Encounter for antineoplastic radiation therapy (principal); C32.1 Malignant neoplasm of supraglottis
CPT/HCPCS: 77295; 77300; 77307; 77334; 77336; 77417; 99204; 99213

== ENCOUNTER → 2018-10-14 | Outpatient (CLI) | payer MEDICARE | LOC: RT 12:27 | PROVIDERS: ATTEND Nurse Practitioner Family | DX: J43.9 Emphysema, unspecified (principal); R09.02 Hypoxemia; G47.33 Obstructive sleep apnea (adult) (pediatric); Z85.819 Personal history of malignant neoplasm of unspecified site of lip, oral cavity, and pharynx; Z72.0 Tobacco use ==

== ENCOUNTER → 2018-11-10 | Outpatient (CLI) | payer MEDICARE, OTHER ==
[2018-11-10 11:46] LABS: BUN/CREATININE RATIO 10; CREATININE SERUM 0.67 MG/DL (0.60-1.30); GFR ESTIMATED > 60
--- NOTE | 2018-11-10 13:11 | Diagnostic Imaging Report ---
PROCEDURE: CT chest with contrast only. TECHNIQUE: Multiple contiguous axial images were obtained through the chest after administration of intravenous contrast. Auto Exposure Controls were utilized during the CT exam to meet ALARA standards for radiation dose reduction. INDICATION: Shortness of air and right lung nodule. The study is performed for further evaluation. COMPARISON: Correlation is made with chest radiograph from 05/23/2018 and PET/CT from 04/06/2018. FINDINGS: No axillary lymphadenopathy is identified. Paratracheal lymph node demonstrates a short axis measurement of 7 mm and appears to be fairly stable when compared with prior exam. No hilar lymphadenopathy is seen. No pericardial or pleural fluid is detected. Centrilobular emphysematous changes are noted. Nodule in the superior segment of the right lower lobe is stable at 11 mm. Subpleural nodule more inferiorly in the posterior lateral right lower lobe is stable at approximately 15 mm. Nodule in the inferior left lower lobe is stable at 10 mm. No new mass is detected. Upper abdomen demonstrates multiple stones within the gallbladder. There is hepatic steatosis. IMPRESSION: 1. Stable bilateral pulmonary nodules when compared with PET-CT from 04/06/2018. No thoracic lymphadenopathy is detected. 2. Hepatic steatosis. 3. Cholelithiasis. Dictated by: Dictated on workstation # [id number]
== END ==
LOC: RAD 11:02
PROVIDERS: ATTEND Nurse Practitioner Family
DX: J43.2 Centrilobular emphysema (principal); G47.33 Obstructive sleep apnea (adult) (pediatric); R91.8 Other nonspecific abnormal finding of lung field; K76.0 Fatty (change of) liver, not elsewhere classified; K80.20 Calculus of gallbladder without cholecystitis without obstruction; Z72.0 Tobacco use; Z85.819 Personal history of malignant neoplasm of unspecified site of lip, oral cavity, and pharynx
CPT/HCPCS: 36415; 71260; 82565; 84520

== ENCOUNTER → 2019-11-30 | Outpatient (CLI) | payer MEDICARE, OTHER ==
[~2019-11-30] MED LIST changes: -DILT180C PO; +DILT180C85 PO
--- NOTE | 2019-11-30 13:15 | Diagnostic Imaging Report ---
EXAMINATION: CT Chest without contrast (lung screening). TECHNIQUE: Multiple contiguous axial images were obtained through the chest without the use of intravenous contrast according to lung cancer screening protocol. All CT scans use one or more of the following dose optimizing techniques: automated exposure control, MA and/or KvP adjustment based on a patient size and exam type, or iterative reconstruction. HISTORY: 49 pack year history of smoking. COMPARISON: 11/11/2018. FINDINGS: There is no edema or pneumonia. No pleural effusion. No pneumothorax. There is a stable 12 mm nodule in the right upper lobe. There is a stable 18 x 7 mm nodule in the left upper lobe. There is a stable 15 mm nodule in the right lower lobe. There is a stable 10 mm nodule in the left lower lobe. No new nodules are seen. Heart size is normal. There are moderate coronary artery calcifications. No pericardial effusion. Aorta is normal in caliber. There is no axillary or supraclavicular lymphadenopathy. There is no mediastinal lymphadenopathy. Limited views of the upper abdomen are unremarkable. There are no suspicious osseus lesions. IMPRESSION: 1. Stable pulmonary nodules. LUNG-RADS CATEGORY: 2 MODIFIER: None. Dictated by: Dictated on workstation # [id number]
== END ==
LOC: RAD 11:14
PROVIDERS: ATTEND Nurse Practitioner Family
DX: R91.8 Other nonspecific abnormal finding of lung field (principal); Z87.891 Personal history of nicotine dependence; Z72.0 Tobacco use

== ENCOUNTER → 2019-12-06 | Outpatient (CLI) | payer MEDICARE ==
[~2019-12-06] MED LIST changes: +RT-ALBUTEROL SULF 2.5 MG/3 ML PRE-MIX VIAL INH ONE
== END ==
LOC: RT 08:12
PROVIDERS: ATTEND Nurse Practitioner Family
DX: J43.9 Emphysema, unspecified (principal); Z72.0 Tobacco use
CPT/HCPCS: 94060; 94726; 94729

== ENCOUNTER → 2020-12-19 | Outpatient (CLI) | payer MEDICARE ==
[~2020-12-19] MED LIST changes: +ASPI-1238 PO; -ASPI-983 PO; -NICO-588 TD; +NICO-685 TD; -RT-ALBUTEROL SULF 2.5 MG/3 ML PRE-MIX VIAL INH ONE
--- NOTE | 2020-12-19 13:24 | Diagnostic Imaging Report ---
PROCEDURE: CT chest without contrast. TECHNIQUE: Multiple contiguous axial images were obtained through the chest without the use of intravenous contrast. Auto Exposure Controls were utilized during the CT exam to meet ALARA standards for radiation dose reduction. INDICATION: Followup of pulmonary nodules. COMPARISON: Previous screening lung scan of 11/30/2019. FINDINGS: Bilateral pulmonary nodules are again demonstrated. There is one in the upper lobe, one in the lower lobe on the right, one in the left upper lobe, and one in the left lower lobe. These all are stable. Some of these have developed some rim calcification. No new nodules have developed. The lungs are well aerated. There is some scarring along the major fissure on the right which is unchanged. No mediastinal or hilar adenopathy of pathologic size. No pleural effusion or pericardial effusion. No blastic or lytic bony changes have developed. The adrenal glands are not enlarged. Incidentally noted are multiple gallstones. IMPRESSION: Stable bilateral pulmonary nodules. These are felt to be consistent with granulomas. There are no worrisome features that would suggest malignancy. Dictated by: Dictated on workstation # [id number]
== END ==
LOC: RAD FS 09:44
PROVIDERS: ATTEND Nurse Practitioner Family
DX: J44.9 Chronic obstructive pulmonary disease, unspecified (principal); R91.8 Other nonspecific abnormal finding of lung field
CPT/HCPCS: 71250